=== PATIENT | female | born 1940 | race Caucasian/White ===

== ENCOUNTER → 2019-10-21 10:28 | Outpatient (BNVA) | payer MEDICARE, SELFPAY | PROVIDERS: Family Provider Family Medicine; PCP Family Medicine; Visit Provider Family Medicine | DX: I10 Essential (primary) hypertension (principal); E11.9 Type 2 diabetes mellitus without complications; Z79.4 Long term (current) use of insulin; L30.9 Dermatitis, unspecified; E78.2 Mixed hyperlipidemia | CPT/HCPCS: 80053; 80061; 82044; 83036; 85025 ==

== ENCOUNTER → 2020-04-20 09:52 | Outpatient (BNVA) | payer MEDICARE, SELFPAY | PROVIDERS: Family Provider Family Medicine; PCP Family Medicine; Visit Provider Family Medicine | DX: E11.9 Type 2 diabetes mellitus without complications (principal); I10 Essential (primary) hypertension; Z79.4 Long term (current) use of insulin | CPT/HCPCS: 80053; 80061; 83036 ==

== ENCOUNTER → 2020-08-19 09:40 | Outpatient (BNVA) | payer MEDICARE, SELFPAY | PROVIDERS: Family Provider Family Medicine; PCP Family Medicine; Visit Provider Family Medicine | DX: E11.9 Type 2 diabetes mellitus without complications (principal); Z79.4 Long term (current) use of insulin; J01.10 Acute frontal sinusitis, unspecified; I10 Essential (primary) hypertension; E78.2 Mixed hyperlipidemia | CPT/HCPCS: 80053; 83036 ==

== ENCOUNTER → 2020-11-11 09:56 | Outpatient (BNVA) | payer MEDICARE, SELFPAY | PROVIDERS: Family Provider Family Medicine; PCP Family Medicine; Visit Provider Family Medicine | DX: E11.9 Type 2 diabetes mellitus without complications (principal); Z79.4 Long term (current) use of insulin; I10 Essential (primary) hypertension; E78.2 Mixed hyperlipidemia | CPT/HCPCS: 80053; 80061; 83036; 85025 ==

== ENCOUNTER → 2022-06-08 11:28 | Outpatient (BNVA) | payer MEDICARE, SELFPAY | PROVIDERS: Family Provider Family Medicine; PCP Family Medicine; Referring Provider Dermatology; Visit Provider Podiatrist Foot & Ankle Surgery | DX: E11.621 Type 2 diabetes mellitus with foot ulcer (principal); L97.512 Non-pressure chronic ulcer of other part of right foot with fat layer exposed; Z79.4 Long term (current) use of insulin; Z79.84 Long term (current) use of oral hypoglycemic drugs | CPT/HCPCS: 11042; 73630; 99204 ==

== ENCOUNTER 2022-06-29 14:54 | Outpatient (CLI) | payer MEDICARE, SELFPAY | END 2022-06-29 14:55 | disposition home or self-care (01) | LOC: SPT 14:57 | PROVIDERS: Family Provider Family Medicine; PCP Family Medicine; Visit Provider Podiatrist Foot & Ankle Surgery | DX: Z46.89 Encounter for fitting and adjustment of other specified devices (principal); E11.621 Type 2 diabetes mellitus with foot ulcer; L97.512 Non-pressure chronic ulcer of other part of right foot with fat layer exposed; L97.521 Non-pressure chronic ulcer of other part of left foot limited to breakdown of skin; Z79.4 Long term (current) use of insulin; Z79.84 Long term (current) use of oral hypoglycemic drugs | CPT/HCPCS: 11042; 97760; L4361 ==

== ENCOUNTER → 2022-07-18 11:06 | Outpatient (BNVA) | payer MEDICARE, SELFPAY | PROVIDERS: Family Provider Family Medicine; PCP Family Medicine; Visit Provider Podiatrist Foot & Ankle Surgery | DX: E11.621 Type 2 diabetes mellitus with foot ulcer (principal); L97.512 Non-pressure chronic ulcer of other part of right foot with fat layer exposed; L97.522 Non-pressure chronic ulcer of other part of left foot with fat layer exposed; L97.401 Non-pressure chronic ulcer of unspecified heel and midfoot limited to breakdown of skin; I70.223 Atherosclerosis of native arteries of extremities with rest pain, bilateral legs; Z79.4 Long term (current) use of insulin | CPT/HCPCS: 99214 ==

== ENCOUNTER → 2022-08-17 11:21 | Outpatient (BNVA) | payer MEDICARE, SELFPAY | PROVIDERS: Family Provider Family Medicine; PCP Family Medicine; Visit Provider Podiatrist Foot & Ankle Surgery | DX: E11.621 Type 2 diabetes mellitus with foot ulcer (principal); L97.512 Non-pressure chronic ulcer of other part of right foot with fat layer exposed; E11.9 Type 2 diabetes mellitus without complications; Z79.4 Long term (current) use of insulin; I70.223 Atherosclerosis of native arteries of extremities with rest pain, bilateral legs; L97.522 Non-pressure chronic ulcer of other part of left foot with fat layer exposed; L97.401 Non-pressure chronic ulcer of unspecified heel and midfoot limited to breakdown of skin | CPT/HCPCS: 99214 ==

== ENCOUNTER → 2022-10-05 14:18 | Outpatient (BNVA) | payer MEDICARE, SELFPAY | PROVIDERS: Family Provider Family Medicine; PCP Family Medicine; Visit Provider Podiatrist Foot & Ankle Surgery | DX: L97.522 Non-pressure chronic ulcer of other part of left foot with fat layer exposed (principal) | CPT/HCPCS: 11042; 87070; 87075; 87205 ==

== ENCOUNTER → 2022-10-19 15:08 | Outpatient (BNVA) | payer MEDICARE, SELFPAY | PROVIDERS: Family Provider Family Medicine; PCP Family Medicine; Visit Provider Podiatrist Foot & Ankle Surgery | DX: E11.621 Type 2 diabetes mellitus with foot ulcer (principal); L97.512 Non-pressure chronic ulcer of other part of right foot with fat layer exposed; L97.522 Non-pressure chronic ulcer of other part of left foot with fat layer exposed; L97.421 Non-pressure chronic ulcer of left heel and midfoot limited to breakdown of skin; I70.223 Atherosclerosis of native arteries of extremities with rest pain, bilateral legs; Z79.4 Long term (current) use of insulin; Z79.84 Long term (current) use of oral hypoglycemic drugs | CPT/HCPCS: 99214 ==

== ENCOUNTER → 2022-11-02 14:57 | Outpatient (BNVA) | payer MEDICARE, SELFPAY | PROVIDERS: Family Provider Family Medicine; PCP Family Medicine; Visit Provider Podiatrist Foot & Ankle Surgery | DX: E11.621 Type 2 diabetes mellitus with foot ulcer (principal); L97.512 Non-pressure chronic ulcer of other part of right foot with fat layer exposed; L97.522 Non-pressure chronic ulcer of other part of left foot with fat layer exposed; L97.421 Non-pressure chronic ulcer of left heel and midfoot limited to breakdown of skin; Z79.84 Long term (current) use of oral hypoglycemic drugs; Z79.4 Long term (current) use of insulin; I70.223 Atherosclerosis of native arteries of extremities with rest pain, bilateral legs | CPT/HCPCS: 99214 ==

== ENCOUNTER → 2022-11-16 11:01 | Outpatient (BNVA) | payer MEDICARE, SELFPAY | PROVIDERS: Family Provider Family Medicine; PCP Family Medicine; Visit Provider Podiatrist Foot & Ankle Surgery | DX: E11.621 Type 2 diabetes mellitus with foot ulcer (principal); Z79.84 Long term (current) use of oral hypoglycemic drugs; L97.512 Non-pressure chronic ulcer of other part of right foot with fat layer exposed; Z79.4 Long term (current) use of insulin; I70.223 Atherosclerosis of native arteries of extremities with rest pain, bilateral legs; L97.522 Non-pressure chronic ulcer of other part of left foot with fat layer exposed; L97.421 Non-pressure chronic ulcer of left heel and midfoot limited to breakdown of skin | CPT/HCPCS: 99214 ==

== ENCOUNTER → 2022-11-30 13:24 | Outpatient (BNVA) | payer MEDICARE, SELFPAY | PROVIDERS: Family Provider Family Medicine; PCP Family Medicine; Visit Provider Podiatrist Foot & Ankle Surgery | DX: E11.621 Type 2 diabetes mellitus with foot ulcer (principal); Z79.84 Long term (current) use of oral hypoglycemic drugs; L97.512 Non-pressure chronic ulcer of other part of right foot with fat layer exposed; L97.522 Non-pressure chronic ulcer of other part of left foot with fat layer exposed; L97.421 Non-pressure chronic ulcer of left heel and midfoot limited to breakdown of skin; I70.223 Atherosclerosis of native arteries of extremities with rest pain, bilateral legs; Z79.4 Long term (current) use of insulin | CPT/HCPCS: 99214 ==

== ENCOUNTER → 2022-12-14 14:20 | Outpatient (BNVA) | payer MEDICARE, SELFPAY | PROVIDERS: Family Provider Family Medicine; PCP Family Medicine; Visit Provider Podiatrist Foot & Ankle Surgery | DX: E11.621 Type 2 diabetes mellitus with foot ulcer (principal); I70.223 Atherosclerosis of native arteries of extremities with rest pain, bilateral legs; L97.512 Non-pressure chronic ulcer of other part of right foot with fat layer exposed; L97.522 Non-pressure chronic ulcer of other part of left foot with fat layer exposed; Z79.4 Long term (current) use of insulin | CPT/HCPCS: 99213 ==

== ENCOUNTER → 2022-12-28 14:27 | Outpatient (BNVA) | payer MEDICARE, SELFPAY | PROVIDERS: Family Provider Family Medicine; PCP Family Medicine; Visit Provider Podiatrist Foot & Ankle Surgery | DX: E11.621 Type 2 diabetes mellitus with foot ulcer (principal); Z79.84 Long term (current) use of oral hypoglycemic drugs; L97.512 Non-pressure chronic ulcer of other part of right foot with fat layer exposed; L97.522 Non-pressure chronic ulcer of other part of left foot with fat layer exposed; I70.223 Atherosclerosis of native arteries of extremities with rest pain, bilateral legs; Z79.4 Long term (current) use of insulin | CPT/HCPCS: 99213 ==

== ENCOUNTER → 2023-01-11 13:34 | Outpatient (BNVA) | payer MEDICARE, SELFPAY | PROVIDERS: Family Provider Family Medicine; PCP Family Medicine; Visit Provider Podiatrist Foot & Ankle Surgery | DX: I70.223 Atherosclerosis of native arteries of extremities with rest pain, bilateral legs (principal); E11.621 Type 2 diabetes mellitus with foot ulcer; L97.522 Non-pressure chronic ulcer of other part of left foot with fat layer exposed; L97.512 Non-pressure chronic ulcer of other part of right foot with fat layer exposed; Z79.4 Long term (current) use of insulin; Z79.84 Long term (current) use of oral hypoglycemic drugs | CPT/HCPCS: 99214 ==

== ENCOUNTER → 2023-03-15 10:33 | Outpatient (BNVA) | payer MEDICARE, SELFPAY | PROVIDERS: Family Provider Family Medicine; PCP Family Medicine; Visit Provider Podiatrist Foot & Ankle Surgery | DX: E11.621 Type 2 diabetes mellitus with foot ulcer (principal); Z79.84 Long term (current) use of oral hypoglycemic drugs; I73.9 Peripheral vascular disease, unspecified; L97.512 Non-pressure chronic ulcer of other part of right foot with fat layer exposed; Z79.4 Long term (current) use of insulin | CPT/HCPCS: 99214 ==

== ENCOUNTER → 2023-04-05 14:33 | Outpatient (BNVA) | payer MEDICARE, SELFPAY | PROVIDERS: Family Provider Family Medicine; PCP Family Medicine; Visit Provider Podiatrist Foot & Ankle Surgery | DX: L97.512 Non-pressure chronic ulcer of other part of right foot with fat layer exposed (principal); Z79.4 Long term (current) use of insulin; I70.223 Atherosclerosis of native arteries of extremities with rest pain, bilateral legs; E11.621 Type 2 diabetes mellitus with foot ulcer; Z79.84 Long term (current) use of oral hypoglycemic drugs | CPT/HCPCS: 99214 ==

== ENCOUNTER → 2023-04-26 12:53 | Outpatient (BNVA) | payer MEDICARE, SELFPAY | PROVIDERS: Family Provider Family Medicine; PCP Family Medicine; Visit Provider Podiatrist Foot & Ankle Surgery | DX: E11.621 Type 2 diabetes mellitus with foot ulcer; L97.512 Non-pressure chronic ulcer of other part of right foot with fat layer exposed; Z79.4 Long term (current) use of insulin; I70.223 Atherosclerosis of native arteries of extremities with rest pain, bilateral legs; Z79.84 Long term (current) use of oral hypoglycemic drugs | CPT/HCPCS: 99214 ==

== ENCOUNTER → 2023-05-31 13:28 | Outpatient (BNVA) | payer MEDICARE, SELFPAY | PROVIDERS: Family Provider Family Medicine; PCP Family Medicine; Visit Provider Podiatrist Foot & Ankle Surgery | DX: Z79.4 Long term (current) use of insulin; I73.9 Peripheral vascular disease, unspecified; L97.522 Non-pressure chronic ulcer of other part of left foot with fat layer exposed; E11.621 Type 2 diabetes mellitus with foot ulcer; Z79.84 Long term (current) use of oral hypoglycemic drugs | CPT/HCPCS: 99213 ==

== ENCOUNTER → 2023-06-28 13:01 | Outpatient (BNVA) | payer MEDICARE, SELFPAY | PROVIDERS: Family Provider Family Medicine; PCP Family Medicine; Visit Provider Podiatrist Foot & Ankle Surgery | DX: Z79.4 Long term (current) use of insulin; I73.9 Peripheral vascular disease, unspecified; L97.512 Non-pressure chronic ulcer of other part of right foot with fat layer exposed; E11.621 Type 2 diabetes mellitus with foot ulcer; Z79.84 Long term (current) use of oral hypoglycemic drugs | CPT/HCPCS: 99213 ==

== ENCOUNTER → 2023-08-02 11:23 | Outpatient (BNVA) | payer MEDICARE, SELFPAY | PROVIDERS: Family Provider Family Medicine; PCP Family Medicine; Visit Provider Podiatrist Foot & Ankle Surgery | DX: Z79.4 Long term (current) use of insulin; I73.9 Peripheral vascular disease, unspecified; L97.512 Non-pressure chronic ulcer of other part of right foot with fat layer exposed; E11.621 Type 2 diabetes mellitus with foot ulcer; Z79.84 Long term (current) use of oral hypoglycemic drugs | CPT/HCPCS: 99213 ==

== ENCOUNTER → 2023-08-16 10:16 | Outpatient (BNVA) | payer MEDICARE, SELFPAY | PROVIDERS: Family Provider Family Medicine; Visit Provider Podiatrist Foot & Ankle Surgery | DX: Z79.4 Long term (current) use of insulin; I73.9 Peripheral vascular disease, unspecified; L97.512 Non-pressure chronic ulcer of other part of right foot with fat layer exposed; E11.621 Type 2 diabetes mellitus with foot ulcer; Z79.84 Long term (current) use of oral hypoglycemic drugs | CPT/HCPCS: 99213 ==

== ENCOUNTER → 2023-09-13 13:09 | Outpatient (BNVA) | payer MEDICARE, SELFPAY | PROVIDERS: Family Provider Family Medicine; Visit Provider Podiatrist Foot & Ankle Surgery | DX: Z79.4 Long term (current) use of insulin; I73.9 Peripheral vascular disease, unspecified; L97.512 Non-pressure chronic ulcer of other part of right foot with fat layer exposed; E11.621 Type 2 diabetes mellitus with foot ulcer; Z79.84 Long term (current) use of oral hypoglycemic drugs | CPT/HCPCS: 11042 ==

== ENCOUNTER → 2023-10-04 14:21 | Outpatient (BNVA) | payer MEDICARE, SELFPAY | PROVIDERS: Family Provider Family Medicine; Visit Provider Podiatrist Foot & Ankle Surgery | DX: E11.621 Type 2 diabetes mellitus with foot ulcer (principal); Z79.4 Long term (current) use of insulin; I73.9 Peripheral vascular disease, unspecified; L97.512 Non-pressure chronic ulcer of other part of right foot with fat layer exposed | CPT/HCPCS: 11042 ==

== ENCOUNTER → 2023-11-06 09:57 | Outpatient (BNVA) | payer MEDICARE, SELFPAY | PROVIDERS: Family Provider Family Medicine; Visit Provider Podiatrist Foot & Ankle Surgery | DX: Z79.4 Long term (current) use of insulin; I73.9 Peripheral vascular disease, unspecified; L97.512 Non-pressure chronic ulcer of other part of right foot with fat layer exposed; E11.621 Type 2 diabetes mellitus with foot ulcer; Z79.84 Long term (current) use of oral hypoglycemic drugs | CPT/HCPCS: 99213 ==

== ENCOUNTER → 2023-11-24 13:25 | Outpatient (BNVA) | payer MEDICARE, SELFPAY | PROVIDERS: Family Provider Family Medicine; Visit Provider Podiatrist Foot & Ankle Surgery | DX: Z79.4 Long term (current) use of insulin; I73.9 Peripheral vascular disease, unspecified; L97.512 Non-pressure chronic ulcer of other part of right foot with fat layer exposed; E11.621 Type 2 diabetes mellitus with foot ulcer | CPT/HCPCS: 99213 ==

== ENCOUNTER → 2023-12-11 12:42 | Outpatient (BNVA) | payer MEDICARE, SELFPAY | PROVIDERS: Family Provider Family Medicine; Visit Provider Podiatrist Foot & Ankle Surgery | DX: Z79.4 Long term (current) use of insulin; I73.9 Peripheral vascular disease, unspecified; E11.9 Type 2 diabetes mellitus without complications; Z79.84 Long term (current) use of oral hypoglycemic drugs | CPT/HCPCS: 99213 ==

== ENCOUNTER → 2024-01-08 12:29 | Outpatient (BNVA) | payer MEDICARE, SELFPAY | PROVIDERS: Family Provider Family Medicine; Visit Provider Podiatrist Foot & Ankle Surgery | DX: Z79.4 Long term (current) use of insulin; I73.9 Peripheral vascular disease, unspecified; L97.512 Non-pressure chronic ulcer of other part of right foot with fat layer exposed; E11.621 Type 2 diabetes mellitus with foot ulcer; Z79.84 Long term (current) use of oral hypoglycemic drugs | CPT/HCPCS: 99213 ==

== ENCOUNTER → 2024-03-25 09:38 | Outpatient (BNVA) | payer MEDICARE, SELFPAY | PROVIDERS: Family Provider Family Medicine; Visit Provider Podiatrist Foot & Ankle Surgery | DX: Z79.4 Long term (current) use of insulin; I73.9 Peripheral vascular disease, unspecified; L97.512 Non-pressure chronic ulcer of other part of right foot with fat layer exposed; E11.621 Type 2 diabetes mellitus with foot ulcer | CPT/HCPCS: 11042 ==

== ENCOUNTER → 2024-04-17 10:45 | Outpatient (BNVA) | payer MEDICARE, SELFPAY | PROVIDERS: Family Provider Family Medicine; Visit Provider Podiatrist Foot & Ankle Surgery | DX: Z79.4 Long term (current) use of insulin; I73.9 Peripheral vascular disease, unspecified; L97.512 Non-pressure chronic ulcer of other part of right foot with fat layer exposed; E11.621 Type 2 diabetes mellitus with foot ulcer; Z79.84 Long term (current) use of oral hypoglycemic drugs | CPT/HCPCS: 11042 ==

== ENCOUNTER → 2024-05-08 11:12 | Outpatient (BNVA) | payer MEDICARE, SELFPAY | PROVIDERS: Family Provider Family Medicine; Visit Provider Podiatrist Foot & Ankle Surgery | DX: Z79.4 Long term (current) use of insulin; I73.9 Peripheral vascular disease, unspecified; L97.512 Non-pressure chronic ulcer of other part of right foot with fat layer exposed; E11.621 Type 2 diabetes mellitus with foot ulcer | CPT/HCPCS: 99213 ==

== ENCOUNTER → 2024-05-29 11:10 | Outpatient (BNVA) | payer MEDICARE, SELFPAY | PROVIDERS: Family Provider Family Medicine; Visit Provider Podiatrist Foot & Ankle Surgery | DX: Z79.4 Long term (current) use of insulin; I73.9 Peripheral vascular disease, unspecified; L97.512 Non-pressure chronic ulcer of other part of right foot with fat layer exposed; E11.621 Type 2 diabetes mellitus with foot ulcer; Z79.84 Long term (current) use of oral hypoglycemic drugs | CPT/HCPCS: 29445 ==

== ENCOUNTER → 2024-06-06 10:40 | Outpatient (BNVA) | payer MEDICARE, SELFPAY | PROVIDERS: Family Provider Family Medicine; Visit Provider Podiatrist Foot & Ankle Surgery | DX: Z79.4 Long term (current) use of insulin; I73.9 Peripheral vascular disease, unspecified; L97.512 Non-pressure chronic ulcer of other part of right foot with fat layer exposed; E11.621 Type 2 diabetes mellitus with foot ulcer; Z79.84 Long term (current) use of oral hypoglycemic drugs | CPT/HCPCS: 99213 ==

== ENCOUNTER → 2024-06-19 10:59 | Outpatient (BNVA) | payer MEDICARE, SELFPAY | PROVIDERS: Family Provider Family Medicine; Visit Provider Podiatrist Foot & Ankle Surgery | DX: Z79.4 Long term (current) use of insulin; I73.9 Peripheral vascular disease, unspecified; L97.512 Non-pressure chronic ulcer of other part of right foot with fat layer exposed; E11.621 Type 2 diabetes mellitus with foot ulcer; Z79.84 Long term (current) use of oral hypoglycemic drugs | CPT/HCPCS: 99213 ==

== ENCOUNTER → 2024-07-03 10:46 | Outpatient (BNVA) | payer MEDICARE, SELFPAY | PROVIDERS: Family Provider Family Medicine; Visit Provider Podiatrist Foot & Ankle Surgery | DX: Z79.4 Long term (current) use of insulin; I73.9 Peripheral vascular disease, unspecified; L97.512 Non-pressure chronic ulcer of other part of right foot with fat layer exposed; L97.522 Non-pressure chronic ulcer of other part of left foot with fat layer exposed; E11.621 Type 2 diabetes mellitus with foot ulcer; Z79.84 Long term (current) use of oral hypoglycemic drugs | CPT/HCPCS: 99213 ==

== ENCOUNTER → 2024-07-30 12:29 | Outpatient (BNVA) | payer MEDICARE, SELFPAY | PROVIDERS: Family Provider Family Medicine; Visit Provider Podiatrist Foot & Ankle Surgery | DX: Z79.4 Long term (current) use of insulin; I73.9 Peripheral vascular disease, unspecified; L97.512 Non-pressure chronic ulcer of other part of right foot with fat layer exposed; L60.3 Nail dystrophy; E11.621 Type 2 diabetes mellitus with foot ulcer; Z79.84 Long term (current) use of oral hypoglycemic drugs | CPT/HCPCS: 11042; 11721 ==

== ENCOUNTER → 2024-09-10 13:15 | Outpatient (BNVA) | payer MEDICARE, SELFPAY | PROVIDERS: Family Provider Family Medicine; Visit Provider Podiatrist Foot & Ankle Surgery | DX: Z79.4 Long term (current) use of insulin; I73.9 Peripheral vascular disease, unspecified; L97.512 Non-pressure chronic ulcer of other part of right foot with fat layer exposed; E11.621 Type 2 diabetes mellitus with foot ulcer; E11.69 Type 2 diabetes mellitus with other specified complication; Z79.84 Long term (current) use of oral hypoglycemic drugs | CPT/HCPCS: 11042 ==

== ENCOUNTER → 2024-10-23 10:05 | Outpatient (BNVA) | payer MEDICARE, SELFPAY | PROVIDERS: Family Provider Family Medicine; Visit Provider Podiatrist Foot & Ankle Surgery | DX: E11.621 Type 2 diabetes mellitus with foot ulcer (principal); L97.513 Non-pressure chronic ulcer of other part of right foot with necrosis of muscle; Z79.4 Long term (current) use of insulin; I73.9 Peripheral vascular disease, unspecified; M20.21 Hallux rigidus, right foot; M20.22 Hallux rigidus, left foot; M21.41 Flat foot [pes planus] (acquired), right foot; M21.42 Flat foot [pes planus] (acquired), left foot | CPT/HCPCS: 99213 ==

== ENCOUNTER → 2024-11-11 09:47 | Outpatient (BNVA) | payer MEDICARE, SELFPAY | PROVIDERS: Family Provider Family Medicine; Visit Provider Podiatrist Foot & Ankle Surgery | DX: E11.621 Type 2 diabetes mellitus with foot ulcer (principal); L97.513 Non-pressure chronic ulcer of other part of right foot with necrosis of muscle; Z79.4 Long term (current) use of insulin; I73.9 Peripheral vascular disease, unspecified; M20.21 Hallux rigidus, right foot; M20.22 Hallux rigidus, left foot; M21.41 Flat foot [pes planus] (acquired), right foot; M21.42 Flat foot [pes planus] (acquired), left foot; Z79.84 Long term (current) use of oral hypoglycemic drugs | CPT/HCPCS: 99213 ==

== ENCOUNTER → 2024-12-18 12:26 | Outpatient (BNVA) | payer MEDICARE, SELFPAY | PROVIDERS: Family Provider Family Medicine; Visit Provider Nurse Practitioner Family | DX: L30.8 Other specified dermatitis (principal); L57.8 Other skin changes due to chronic exposure to nonionizing radiation; D22.39 Melanocytic nevi of other parts of face; R23.3 Spontaneous ecchymoses; L82.1 Other seborrheic keratosis; I87.2 Venous insufficiency (chronic) (peripheral); L81.4 Other melanin hyperpigmentation; L57.0 Actinic keratosis | CPT/HCPCS: 17000; 99203 ==

== ENCOUNTER → 2024-12-25 10:13 | Outpatient (BNVA) | payer MEDICARE, SELFPAY | PROVIDERS: PCP Nurse Practitioner Family; Visit Provider Podiatrist Foot & Ankle Surgery | DX: E11.621 Type 2 diabetes mellitus with foot ulcer (principal); L97.513 Non-pressure chronic ulcer of other part of right foot with necrosis of muscle; Z79.4 Long term (current) use of insulin; I73.9 Peripheral vascular disease, unspecified; M20.21 Hallux rigidus, right foot; M20.22 Hallux rigidus, left foot; M21.41 Flat foot [pes planus] (acquired), right foot; M21.42 Flat foot [pes planus] (acquired), left foot; Z79.84 Long term (current) use of oral hypoglycemic drugs | CPT/HCPCS: 11042 ==

== ENCOUNTER → 2025-01-15 13:23 | Outpatient (BNVA) | payer MEDICARE, SELFPAY | PROVIDERS: PCP Nurse Practitioner Family; Visit Provider Podiatrist Foot & Ankle Surgery | DX: I73.9 Peripheral vascular disease, unspecified (principal); Z79.4 Long term (current) use of insulin; M20.21 Hallux rigidus, right foot; M20.22 Hallux rigidus, left foot; M21.41 Flat foot [pes planus] (acquired), right foot; M21.42 Flat foot [pes planus] (acquired), left foot; L97.513 Non-pressure chronic ulcer of other part of right foot with necrosis of muscle; E11.69 Type 2 diabetes mellitus with other specified complication; E11.621 Type 2 diabetes mellitus with foot ulcer; Z79.84 Long term (current) use of oral hypoglycemic drugs | CPT/HCPCS: 99213 ==

== ENCOUNTER → 2025-01-16 09:34 | Outpatient (BNVA) | payer MEDICARE, SELFPAY | PROVIDERS: PCP Nurse Practitioner Family; Visit Provider Nurse Practitioner Family | DX: L30.8 Other specified dermatitis (principal); L57.8 Other skin changes due to chronic exposure to nonionizing radiation; D22.39 Melanocytic nevi of other parts of face; L81.4 Other melanin hyperpigmentation; L60.9 Nail disorder, unspecified | CPT/HCPCS: 99214 ==

== ENCOUNTER → 2025-01-29 11:10 | Outpatient (BNVA) | payer MEDICARE, SELFPAY | PROVIDERS: PCP Nurse Practitioner Family; Visit Provider Podiatrist Foot & Ankle Surgery | DX: I73.9 Peripheral vascular disease, unspecified (principal); Z79.4 Long term (current) use of insulin; M20.21 Hallux rigidus, right foot; M20.22 Hallux rigidus, left foot; M21.41 Flat foot [pes planus] (acquired), right foot; M21.42 Flat foot [pes planus] (acquired), left foot; L97.513 Non-pressure chronic ulcer of other part of right foot with necrosis of muscle; L03.115 Cellulitis of right lower limb; E11.621 Type 2 diabetes mellitus with foot ulcer; Z79.84 Long term (current) use of oral hypoglycemic drugs | CPT/HCPCS: 99214 ==

== ENCOUNTER → 2025-02-24 12:45 | Outpatient (BNVA) | payer MEDICARE, SELFPAY | PROVIDERS: PCP Family Medicine; Visit Provider Podiatrist Foot & Ankle Surgery | DX: E11.621 Type 2 diabetes mellitus with foot ulcer (principal); R09.89 Other specified symptoms and signs involving the circulatory and respiratory systems; L97.513 Non-pressure chronic ulcer of other part of right foot with necrosis of muscle; E11.51 Type 2 diabetes mellitus with diabetic peripheral angiopathy without gangrene; Z79.4 Long term (current) use of insulin; I73.9 Peripheral vascular disease, unspecified; M20.21 Hallux rigidus, right foot; M20.22 Hallux rigidus, left foot; M21.41 Flat foot [pes planus] (acquired), right foot; M21.42 Flat foot [pes planus] (acquired), left foot | CPT/HCPCS: 11042; 99213 ==

== ENCOUNTER → 2025-03-11 09:24 | Outpatient (BNVA) | payer MEDICARE, SELFPAY | PROVIDERS: PCP Family Medicine; Visit Provider Podiatrist Foot & Ankle Surgery | DX: E11.51 Type 2 diabetes mellitus with diabetic peripheral angiopathy without gangrene (principal); Z79.4 Long term (current) use of insulin; E11.621 Type 2 diabetes mellitus with foot ulcer; L97.513 Non-pressure chronic ulcer of other part of right foot with necrosis of muscle; I73.9 Peripheral vascular disease, unspecified; M20.21 Hallux rigidus, right foot; M20.22 Hallux rigidus, left foot; M21.41 Flat foot [pes planus] (acquired), right foot; M21.42 Flat foot [pes planus] (acquired), left foot; R09.89 Other specified symptoms and signs involving the circulatory and respiratory systems | CPT/HCPCS: 99213 ==

== ENCOUNTER → 2025-03-18 09:03 | Outpatient (BNVA) | payer MEDICARE, SELFPAY | PROVIDERS: PCP Family Medicine; Visit Provider Family Medicine | DX: E11.51 Type 2 diabetes mellitus with diabetic peripheral angiopathy without gangrene (principal); Z79.4 Long term (current) use of insulin | CPT/HCPCS: 80053; 80061; 82043; 83036; 85025 ==

== ENCOUNTER 2025-03-26 10:02 | Outpatient (CLI) | payer MEDICARE, SELFPAY ==
--- NOTE | 2025-03-26 10:30 | USR_ITS ---
PROCEDURE INFORMATION: Exam: US Bilateral Noninvasive Physiologic Study of the Lower Extremity Arteries, Limited Exam date and time: 03/26/2025 9:55 AM Age: 85 years old Clinical indication: Pain; Leg, lower; Bilateral; Additional info: R09.89 - other specified symptoms and signs involving the. . . TECHNIQUE: Imaging protocol: Bilateral Limited bilateral noninvasive physiologic studies of lower extremity arteries. Waveforms were obtained and evaluated. Images were documented and archived. Exam is limited. COMPARISON: CR XR foot RT min 3V* [id number] 06/08/2022 11:30 AM FINDINGS: Right Ankle-Brachial Index: 0.46 Left Ankle-Brachial Index: 0.52 US/CV ankle brachial index 36779 IMPRESSION: There is evidence of significant arterial disease in both legs
== END 2025-03-26 10:03 | disposition home or self-care (01) ==
LOC: RAD 10:05
PROVIDERS: PCP Family Medicine; Visit Provider Podiatrist Foot & Ankle Surgery
DX: R09.89 Other specified symptoms and signs involving the circulatory and respiratory systems (principal)
CPT/HCPCS: 93922

== ENCOUNTER → 2025-04-01 10:12 | Outpatient (BNVA) | payer MEDICARE, SELFPAY | PROVIDERS: PCP Family Medicine; Visit Provider Podiatrist Foot & Ankle Surgery | DX: E11.621 Type 2 diabetes mellitus with foot ulcer (principal); L97.513 Non-pressure chronic ulcer of other part of right foot with necrosis of muscle; E11.51 Type 2 diabetes mellitus with diabetic peripheral angiopathy without gangrene; Z79.4 Long term (current) use of insulin; I73.9 Peripheral vascular disease, unspecified; M20.21 Hallux rigidus, right foot; M20.22 Hallux rigidus, left foot; M21.41 Flat foot [pes planus] (acquired), right foot; M21.42 Flat foot [pes planus] (acquired), left foot; R09.89 Other specified symptoms and signs involving the circulatory and respiratory systems | CPT/HCPCS: 11042; 99213 ==

== ENCOUNTER → 2025-04-15 09:24 | Outpatient (BNVA) | payer MEDICARE, SELFPAY | PROVIDERS: PCP Family Medicine; Visit Provider Internal Medicine Cardiovascular Disease | DX: R07.9 Chest pain, unspecified (principal) | CPT/HCPCS: 93005 ==

== ENCOUNTER → 2025-04-29 10:03 | Outpatient (BNVA) | payer MEDICARE, SELFPAY | PROVIDERS: PCP Family Medicine; Visit Provider Podiatrist Foot & Ankle Surgery | DX: E11.621 Type 2 diabetes mellitus with foot ulcer (principal); L97.513 Non-pressure chronic ulcer of other part of right foot with necrosis of muscle; E11.51 Type 2 diabetes mellitus with diabetic peripheral angiopathy without gangrene; Z79.4 Long term (current) use of insulin; I73.9 Peripheral vascular disease, unspecified; M20.21 Hallux rigidus, right foot; M20.22 Hallux rigidus, left foot; M21.41 Flat foot [pes planus] (acquired), right foot; M21.42 Flat foot [pes planus] (acquired), left foot; R09.89 Other specified symptoms and signs involving the circulatory and respiratory systems | CPT/HCPCS: 99213 ==

== ENCOUNTER 2025-05-08 11:34 | Outpatient (CLI) | payer MEDICARE, SELFPAY ==
--- NOTE | 2025-05-08 12:00 | CTR_ITS ---
PROCEDURE INFORMATION: Exam: CTA Abdominal Aorta and Bilateral Lower Extremities (Run-off) With Contrast Exam date and time: 05/08/2025 12:17 PM Age: 85 years old Clinical indication: Condition or disease; Peripheral vascular disease; Prior surgery; Surgery date: 6+ months; Surgery type: Partial hyst, RT foot 2nd toe removed, heart stents x 4; Pain in lower extremities; Additional info: Pvd TECHNIQUE: Imaging protocol: Computed tomographic angiography of the of the abdominal aorta, pelvis and bilateral lower extremities with contrast. 3D rendering (Not supervised by radiologist): MIP and/or 3D reconstructed images were created by the technologist. Radiation optimization: All CT scans at this facility use at least one of these dose optimization techniques: automated exposure control; mA and/or kV adjustment per patient size (includes targeted exams where dose is matched to clinical indication); or iterative reconstruction. Contrast material: OMNIPAQUE 350; Contrast volume: 125 ml; Contrast route: INTRAVENOUS (IV); COMPARISON: US Lower Arterial 03/26/2025 09:55 AM RADIATION DOSE METRICS: Total DLP (mGy-cm): 1635.32 FINDINGS: Aorta: Atherosclerotic vascular disease of the abdominal aorta with calcifications of the origin of the celiac axis and SMA. Focal stenosis at the origin of the [place]. No aneurysmal dilatation of the abdominal aorta. Celiac trunk and mesenteric arteries: See Aorta finding. Renal arteries: No occlusion or significant stenosis. Right iliac arteries: Atherosclerotic vascular disease. Right femoral/popliteal arteries: Atherosclerotic vascular disease. Right infrapopliteal arteries: The right peroneal artery appears well opacified but small in caliber. There is faint visualization of the mid to distal right posterior tibial artery which then becomes completely occluded at the mid tibial level. Segmental areas of occlusive thrombus within the right anterior tibial artery. Multiple levels of reconstitution of the right anterior tibial artery. Left iliac arteries: Atherosclerotic vascular disease of the iliac and femoral vessels. Left femoral/popliteal arteries: Atherosclerotic vascular disease. Left infrapopliteal arteries: The proximal left peroneal artery demonstrates occlusion with distal reconstitution. Segmental areas of occlusive thrombus within the left anterior tibial artery. Multiple levels with reconstitution of the left anterior tibial artery.There is occlusion of the left posterior tibial artery at the level of the mid tibia. Liver: Area of differential perfusion within the peripheral liver. Gallbladder and biliary ducts: Multiple gallstones and layering gallbladder sludge. No gallbladder wall thickening. Pancreas: Pancreatic atrophy. Spleen: Normal. No splenomegaly. Adrenal glands: Left adrenal nodule measuring 1.6 x 1.2 cm (series 6, image 106). Kidneys and ureters: Probable focal scarring involving the anterior inferior left kidney. Stomach and bowel: Diverticular disease without acute diverticulosis. Small hiatal hernia versus distal thickening of the esophagus. Appendix: No evidence of appendicitis. Urinary bladder: Unremarkable. No mass. Reproductive: Scattered calcifications associated with the uterus. Intraperitoneal space: Unremarkable. No free air. No significant fluid collection. Lymph nodes: No lymphadenopathy. Bones/joints: Bilateral hip prosthesis resulting in beam hardening artifact. Marked degenerative changes of the spine . Multilevel disc space narrowing. Multilevel facet arthropathy. Soft tissues: Unremarkable. CT/CT angio abd aorta runof [id number] IMPRESSION: 1. Focal stenosis of the origin of the [place]. 2. Atherosclerotic vascular disease with occlusive thrombus involving right and left infrapopliteal arteries as above. 3. Cholelithiasis. No gallbladder wall thickening or pericholecystic fluid. 4. Small hiatal hernia versus distal thickening of the esophagus. 5. Left adrenal nodule, nonspecific. In a patient with no cancer history, consider 12 month follow-up adrenal CT. (Reference: Nubia) 6. Other findings as above. REFERENCES: Nubia GILMAN, et al. Management of Incidental Adrenal Masses: A White Paper of the ACR Incidental Findings Committee. J Am Jayy Radiol. 2017;14(8):2512-6001.
[2025-05-08] MEDS: iohexol 350 mg/mL 500 mL Btl (per mL) IV (12:32)
== END 2025-05-08 11:35 | disposition home or self-care (01) ==
PROVIDERS: PCP Family Medicine; Visit Provider Internal Medicine Cardiovascular Disease
DX: I73.9 Peripheral vascular disease, unspecified (principal)
CPT/HCPCS: 75635

== ENCOUNTER → 2025-05-20 14:22 | Outpatient (BNVA) | payer MEDICARE, SELFPAY | PROVIDERS: PCP Family Medicine; Visit Provider Podiatrist Foot & Ankle Surgery | DX: E11.51 Type 2 diabetes mellitus with diabetic peripheral angiopathy without gangrene (principal); Z79.4 Long term (current) use of insulin; I73.9 Peripheral vascular disease, unspecified; M20.21 Hallux rigidus, right foot; M20.22 Hallux rigidus, left foot; M21.41 Flat foot [pes planus] (acquired), right foot; M21.42 Flat foot [pes planus] (acquired), left foot; L97.513 Non-pressure chronic ulcer of other part of right foot with necrosis of muscle; R09.89 Other specified symptoms and signs involving the circulatory and respiratory systems; L03.115 Cellulitis of right lower limb; E11.621 Type 2 diabetes mellitus with foot ulcer | CPT/HCPCS: 99214 ==

== ENCOUNTER → 2025-05-21 13:37 | Outpatient (BNVA) | payer MEDICARE, SELFPAY | PROVIDERS: PCP Family Medicine; Visit Provider Internal Medicine Cardiovascular Disease | DX: I25.10 Atherosclerotic heart disease of native coronary artery without angina pectoris (principal); I73.9 Peripheral vascular disease, unspecified; I10 Essential (primary) hypertension; Z95.5 Presence of coronary angioplasty implant and graft; Z95.1 Presence of aortocoronary bypass graft; Z87.891 Personal history of nicotine dependence; R58 Hemorrhage, not elsewhere classified | CPT/HCPCS: 99214 ==

== ENCOUNTER → 2025-05-26 09:48 | Outpatient (BNVA) | payer MEDICARE, SELFPAY | PROVIDERS: PCP Family Medicine; Referring Provider Internal Medicine Cardiovascular Disease; Visit Provider Internal Medicine Cardiovascular Disease | DX: R58 Hemorrhage, not elsewhere classified (principal); I73.9 Peripheral vascular disease, unspecified; I10 Essential (primary) hypertension | CPT/HCPCS: 80048; 85025; 85610 ==

== ENCOUNTER → 2025-06-02 11:10 | Outpatient (BNVA) | payer MEDICARE, SELFPAY | PROVIDERS: PCP Family Medicine; Visit Provider Podiatrist Foot & Ankle Surgery | DX: E11.51 Type 2 diabetes mellitus with diabetic peripheral angiopathy without gangrene (principal); Z79.4 Long term (current) use of insulin; I73.9 Peripheral vascular disease, unspecified; L97.513 Non-pressure chronic ulcer of other part of right foot with necrosis of muscle; R09.89 Other specified symptoms and signs involving the circulatory and respiratory systems; L03.115 Cellulitis of right lower limb; Z89.421 Acquired absence of other right toe(s); E11.621 Type 2 diabetes mellitus with foot ulcer; L97.818 Non-pressure chronic ulcer of other part of right lower leg with other specified severity | CPT/HCPCS: 99213 ==

== ENCOUNTER → 2025-06-05 09:16 | Outpatient (BNVA) | payer MEDICARE, SELFPAY | PROVIDERS: PCP Family Medicine; Visit Provider Internal Medicine Cardiovascular Disease | DX: R58 Hemorrhage, not elsewhere classified (principal); I70.223 Atherosclerosis of native arteries of extremities with rest pain, bilateral legs; I10 Essential (primary) hypertension | CPT/HCPCS: 80048; 85025; 85610 ==

== ENCOUNTER → 2025-06-10 11:51 | Outpatient (BNVA) | payer MEDICARE, SELFPAY | PROVIDERS: PCP Family Medicine; Visit Provider Family Medicine | DX: E11.51 Type 2 diabetes mellitus with diabetic peripheral angiopathy without gangrene (principal); Z79.4 Long term (current) use of insulin | CPT/HCPCS: 83036 ==

== ENCOUNTER 2025-06-12 05:55 | Outpatient (CLI) | payer MEDICARE, SELFPAY ==
[2025-06-12] VITALS (43 sets, daily range): BP systolic 115–190; BP diastolic 56–116; PULSE 60–88; RESP 14–27; TEMP 36.6; O2SAT 93–96; BMI 33.3
--- NOTE | 2025-06-12 06:00 | XACV_ITS ---
Ht: 163 cm Wt: 88 kg BSA: 2.03 m2 Any Known Allergies: Codeine Gender: Female : 1940 Exam Type: Invasive Peripheral Vascular Procedure(s): Procedure Description: Peripheral Cath Diagnostic Procedure Exam Priority: Routine KHAMU2, Gore; Lower Extremity Diagnostic Findings Reason for peripheral angiogram: Critical limb ischemia of right lower limbEquipment used: UF catheter, Glidewire, seeker, shockwave 6.0 x 80 mm, Protonix 6.0 x 40 mmAbdominal aortogram was performed through the left common femoral contralateral approach after placing 6 [place] sheath. UF catheter was advanced and placed at the level of T12. Abdominal aortogram was obtainedAbdominal aortography: No significant aneurysm was noted Right renal artery: Patent Left renal artery patentWe then pulled the UF catheter in the lower part of abdominal aorta and advanced up with the help of Glidewire into right common iliac artery. Peripheral angiogram of the right lower extremity was performed through the UF catheter in the right common iliac.Right common iliac: Patent Right internal iliac ostial moderate disease Right external iliac: Patent Right common femoral subtotally occluded highly calcified eccentric almost 95% stenotic lesion Right profundofemoral patent Right SFA patent until it is an adductor canal where it appeared to have high-grade 80% stenosis Right proximal to mid popliteal luminal irregularity without significant stenosis Right distal popliteal subtotally occluded with highly calcified lesion Right tibioperoneal trunk appeared to be patent without significant stenosis Right anterior tibial chronically occluded in its proximal segment Right posterior tibial chronically occluded Right peroneal chronically occludedRight anterior tibial fills through collaterals from the left tibioperoneal trunk in the mid to distal segment with faint blood supply to the footUsing short 6 [place] sheath through left common femoral artery left peripheral angiogram was obtainedLeft common iliac patent Left internal iliac moderate ostial calcified lesion/stenosis Left external iliac patent Left common iliac has mild to moderate disease with calcified stenosis Left profundofemoral is patent Left SFA is patent iliac proximal to mid segment however while entering into adductor canal it has high-grade 80% stenosis The left popliteal has high-grade mid 80% calcified stenosis Tibioperoneal trunk on the left is patent Posterior tibial and peroneal left side arteries are chronically occluded Left anterior tibial is chronically occluded in the proximal to mid segment however it fills through collaterals from the tibioperoneal trunk and mid to distal segment which can be traceable all the way to the left foot feeding some part of the arch. Lower Extremity Interventional Findings Percutaneous intervention of the right common femoral and right distal SFA using lithotripsy and drug-coated balloon balloon Left common femoral short 6 [place] sheath was replaced with long 6 [place] sheath. Using seeker and run-through wire we were able to cross through right common femoral lesion into the SFA and later part of the wire through the tibioperoneal trunk into the proximal portion of occluded right anterior tibial artery.6.0 x 80 mm lithotripsy catheter was used to deliver multiple pulses in the right common femoral artery which improved 99% lesion to 60 to 70%. It was then postdilated with drug-coated balloon using 6.0 x40 millimeter at high inflation for 3 minutes. Reasonable good angiographic result was obtained 99% high-grade calcified lesion was reduced to 60 to 70%, because of the fact common femoral was not stentable therefore we excepted the result. Good flow was confirmed without any complication or dissection. Right distal SFA and popliteal artery lithotripsy followed by drug-coated balloon angioplasty. Right distal SFA and popliteal artery was from mildly treated with multiple pauses delivered through intravascular lithotripsy catheter, both lesions were then postdilated with drug-coated balloon at high atmospheres for 3 minutes. Excellent angiographic result with good flow was noted.Single-vessel runoff was noted below the right knee with good collaterals filling the right anterior tibial artery. Conclusions Reason for peripheral angiogram: Critical limb ischemia of right lower limbEquipment used: UF catheter, Glidewire, seeker, shockwave 6.0 x 80 mm, Protonix 6.0 x 40 mmAbdominal aortogram was performed through the left common femoral contralateral approach after placing 6 [place] sheath. UF catheter was advanced and placed at the level of T12. Abdominal aortogram was obtainedAbdominal aortography: No significant aneurysm was noted Right renal artery: Patent Left renal artery patentWe then pulled the UF catheter in the lower part of abdominal aorta and advanced up with the help of Glidewire into right common iliac artery. Peripheral angiogram of the right lower extremity was performed through the UF catheter in the right common iliac.Right common iliac: Patent Right internal iliac ostial moderate disease Right external iliac: Patent Right common femoral subtotally occluded highly calcified eccentric almost 95% stenotic lesion Right profundofemoral patent Right SFA patent until it is an adductor canal where it appeared to have high-grade 80% stenosis Right proximal to mid popliteal luminal irregularity without significant stenosis Right distal popliteal subtotally occluded with highly calcified lesion Right tibioperoneal trunk appeared to be patent without significant stenosis Right anterior tibial chronically occluded in its proximal segment Right posterior tibial chronically occluded Right peroneal chronically occludedRight anterior tibial fills through collaterals from the left tibioperoneal trunk in the mid to distal segment with faint blood supply to the footUsing short 6 [place] sheath through left common femoral artery left peripheral angiogram was obtainedLeft common iliac patent Left internal iliac moderate ostial calcified lesion/stenosis Left external iliac patent Left common iliac has mild to moderate disease with calcified stenosis Left profundofemoral is patent Left SFA is patent iliac proximal to mid segment however while entering into adductor canal it has high-grade 80% stenosis The left popliteal has high-grade mid 80% calcified stenosis Tibioperoneal trunk on the left is patent Posterior tibial and peroneal left side arteries are chronically occluded Left anterior tibial is chronically occluded in the proximal to mid segment however it fills through collaterals from the tibioperoneal trunk and mid to distal segment which can be traceable all the way to the left foot feeding some part of the arch. Recommendations 1-Return to inpatient for close monitoring and routine cath care 2-Risk factor modification for secondary prevention 3-Statin and aspirin 81 mg life-long, if tolerated 4-Patient was pre-loaded with 300 mg of Plavix, continue Plavix 75mg p.o. daily for at least one year. 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 Gore in four weeks and your primary care in 10 days. Hemodynamic Data Phase:Rest AO : 159.0 / 50.0 ( 91.0 ) @ 8:44:00 AM 140.0 / 47.0 ( 83.0 ) @ 10:01:00 AM Access Site Site: Right Femoral artery Sheath Size: 6 Fr Hemost... Method: Suture Hemost... Success: Successful Procedure Details Findings Pre-Procedure Time Out. Identified patient by full name and date of as verbalized by the patient/guarantor. Does the consent match the physician's order: Yes. Accurate & Complete Informed Consent: Yes. Inpatient/Outpatient History & Physical on Chart: Yes. If H&P is completed, is and addenduem needed: No; If yes, is the addendum complete: N/A. Visualize and Verify Site with Patient/Guarantor: N/A. Relevant Radiology Images available: Yes. Pre-op teaching completed and patient verbalized understanding. The risks, benefits, and alternatives of sedation and/or procedure were discussed by physician. The patient agrees to continue. Procedure started. Correct patient, site and procedure confirmed by cath team. PERRLA. Strong, equal hand farmworkers bilaterally. Lungs clear x 5 lobes. IV Site on Arrival: 20 gauge in the left forearm. IV Fluids: 0.9% NaCl at KVO. 0 mL infused prior to manager cath lab. Pre Procedural Pulses: bilateral dorsalis pedis was Doppled. Pre Procedural Pulses: bilateral posterior tibial was Doppled. Pre Procedural Pulses: bilateral radial was 3+. Oxygen started at 2liters/min via nasal canula. bilateral groins was prepped with chloroprep then draped in the usual sterile fashion. Baseline sample Acquired. HR: 88 BPM. Physician arrived. Physician scrubbed in. Immediate Pre-Procedure Time Out. Correct Patient: Yes; Correct Procedure: Yes; Correct Site: Yes; Correct Patient Position: Yes; Correct Supplies: Yes; Dried Flammable Prep: Yes; Blood Products Available: N/A;. Lidocaine 1% infiltrated to the left groin. Arterial access obtained with micropuncture set. A 5FrFr UF catheter in over wire. Abdominal aortogram performed in AP @ 10 mL/sec for a total of 30 mL. Catheter postioned above the bifurcation of the iliacs. Aortagram performed @ 10 mL/sec for a total of 30 mL. Glidewire inserted through the catheter. Wire out. DSA performed of the right common femoral artery. Glidewire inserted. Catheter out OTW. The 6Fr sheath exchanged for a 45cm Flexor sheath. Seeker inserted OTW. Glidewire removed. Command wire inserted. Wire out. Glidewire inserted. Wire out. Glidewire inserted. Seeker removed OTW. Inflation number : 1 A Shockwave 6.0x80mm was prepped and advanced across the Superficial Femoral, Right , then inflated to 2 [place]AMAR for 0:41 seconds. Inflation number: 2 The Shockwave 6.0x80mm was reinflated across the Superficial Femoral, Right, to 2 LAMAR for 0:19 seconds. Inflation number: 3 The Shockwave 6.0x80mm was reinflated across the Superficial Femoral, Right, to 2 LAMAR for 0:35 seconds. Inflation number: 4 The Shockwave 6.0x80mm was reinflated across the Superficial Femoral, Right, to 2 LAMAR for 0:39 seconds. Inflation number: 5 The Shockwave 6.0x80mm was reinflated across the Superficial Femoral, Right, to 4 LAMAR for 0:39 seconds. Inflation number: 6 The Shockwave 6.0x80mm was reinflated across the Superficial Femoral, Right, to 6 LAMAR for 0:29 seconds. Inflation number: 1 The Shockwave 6.0x80mm was reinflated across the Proximal Superficial Femoral, Right, to 6 LAMAR for 0:37 seconds. Inflation number: 2 The Shockwave 6.0x80mm was reinflated across the Proximal Superficial Femoral, Right, to 6 LAMAR for 0:28 seconds. Inflation number: 3 The Shockwave 6.0x80mm was reinflated across the Proximal Superficial Femoral, Right, to 6 LAMAR for 0:34 seconds. Inflation number: 4 The Shockwave 6.0x80mm was reinflated across the Proximal Superficial Femoral, Right, to 6 LAMAR for 0:34 seconds. Inflation number: 5 The Shockwave 6.0x80mm was reinflated across the Proximal Superficial Femoral, Right, to 6 LAMAR for 0:31 seconds. Balloon out over wire. ACT drawn. Results 235 seconds. Therapeutic limits - pre-heparin administration 90-150 seconds and monitoring heparin during a vascular procedure >250 seconds. Results checked. Inflation number : 7 A LUTONIX 035 6.0x40mm was prepped and advanced across the Superficial Femoral, Right , then inflated to 7 LAMAR for 3:02 seconds. Balloon out over wire. Results checked. The long sheath exchanged for a short 6Fr sheath. A Left femoral angiogram was performed to determine safe placement of closure device. A Suture was successful obtaining hemostatsis at the Right Femoral artery insertion site. Sheath(s) sutured into position with 2-0 silk and sterile 4x4's and Op-site applied over the site. No oozing or signs and symptoms of hematoma noted. Arterial sheath flushed and connected to tranducer and pressure bag with heparinized saline. PERRLA. Strong, equal hand farmworkers bilaterally. No VTE prophylaxis required. Total IV fluids: 125 mL. Post-op diagnosis: PAD. Complications: None. Estimated blood loss: 5mL-10mL. Responsiveness - Normal response to verbal stimuli; alert and oriented, PERRLA. Airway - Unaffected, no intervention required; spontaneous ventilation. Circulation: W/N/L, pulses unchanged. Nausea/Vomiting: No. Procedure completed. Patient transferred by bed to 1st floor. Vital chart was stopped. Procedure Medications Start: 7:25 AM Stop: 7:25 AM Medication: Benadryl Amount: 25 mg Route: I.V. Start: 7:27 AM Stop: 7:27 AM Medication: Versed 1 mg and Fentanyl 25 mcg Amount: 1 Route: I.V. Start: 7:35 AM Stop: 7:35 AM Medication: Versed Amount: 1 mg Route: I.V. Start: 7:37 AM Stop: 7:37 AM Medication: Fentanyl Amount: 25 mcg Route: I.V. Start: 8:06 AM Stop: 8:06 AM Medication: Heparin Amount: 5000 units Route: I.V. Start: 8:14 AM Stop: 8:14 AM Medication: Versed 1 mg and Fentanyl 25 mcg Amount: 1 Route: I.V. Start: 8:42 AM Stop: 8:42 AM Medication: Versed Amount: 1 mg Route: I.V. Start: 8:46 AM Stop: 8:46 AM Medication: Nitrogylcerin Amount: 400 mcg Route: I.A. Start: 8:53 AM Stop: 8:53 AM Medication: Heparin Amount: 2000 units Route: I.V. Start: 8:54 AM Stop: 8:54 AM Medication: Fentanyl Amount: 25 mcg Route: I.V. Start: 9:07 AM Stop: 9:07 AM Medication: Plavix Amount: 300 mg I, the attending physician, have reviewed and verified all procedure medications. Yes, all medications given per verbal order History/Risk Factors Hypertension: Yes Dyslipidemia: Yes Peripheral Arterial Disease (PAD): Yes Obesity: No Tobacco Use: Former Prior Interventions PCI: No CABG: Yes Valve Surgery: No Report Signatures Finalized by Stephanie Gore MD on 07/08/2025 01:59 AM
--- NOTE | 2025-06-12 07:21 | W.PM.OPSUD ---
Surgery/Procedure H&P Update DATE OF PROCEDURE: June 12, 2025 DATE H&P PERFORMED: 05/21/25 PREOP DIAGNOSIS: Critical limb ischemia with nonhealing ulcer, severe PAD PRIMARY INDICATION FOR PROCEDURE: 85-year-old female past medical history significant for hypertension hyperlipidemia coronary artery disease severe peripheral arterial disease history of intermittent claudication now with critical limb ischemia nonhealing right foot ulcer and pain at rest is presenting for peripheral angiogram/percutaneous venoplasty/atherectomy lithotripsy stent placement coated balloon if indicated. Patient has been struggling from nonhealing right foot wound, she underwent CTA with runoff which turns out to be abnormal with severe peripheral arterial disease. It is the reason patient has been scheduled today. PLANNED PROCEDURE: Operation Date: 06/12/25 07:00 Proposed Procedures p Peripheral Diagnostic - Periph Angio Bilat(Bilateral) - Stephanie Gore MD PATIENT REASSESSED PRIOR TO SEDATION, WITH NO CHANGE NOTED: Yes PHYSICAL EXAM: alert, oriented x 3, clear to auscultation bilaterally, regular rate & rhythm and operative site marked AIRWAY EVAL/ANESTHESIA PLAN: ASA II, Risks, benefits & alternatives of sedation and/or procedure discussed and Patient agrees to continue as planned ADDITIONAL INFORMATION: Patient has been explained all risk-benefit and alternative for the procedure. Patient understood 2% risk of stroke major bleed. Patient understand 5 to 10% risk of minor bleeding oozing infection hematoma and limb threatening ischemia leading to urgent or emergent vascular surgery and worst-case scenario amputation of the limb because of thromboembolism or due to ischemic leg. Patient clearly understood it and would like to proceed with it.
--- NOTE | 2025-06-12 09:24 | PM.PROC ---
Procedure Note: Date of procedure: 06/12/25 Pre-procedure diagnosis: Critical limb ischemia, PAD Procedure: Peripheral angiogram was performed for critical limb ischemia nonhealing ulcers on the right foot. Patient was noted to have 100% chronically occluded highly calcified common femoral artery, 90% distal SFA, 80% mid popliteal, she also had 100% occluded anterior tibial posterior tibial and peroneal at the ostium Anterior tibial was filled through collateral in the distal segment. Lithotripsy and drug-coated balloon angioplasty of right common femoral artery with reasonable good result 100% lesion was reduced to 50% Lithotripsy of right distal SFA and popliteal vessel with excellent angiographic result achieved. Patient has chronically occluded highly calcified anterior posterior and peroneal tibial arteries not amenable to intervention Anterior tibial fills through collaterals. After treatment of common femoral popliteal and SFA of the right side robust collaterals were noted filling the anterior tibial. Given patient nature of the disease we excepted the result. Plan: Bedrest for 5 hours after pulling out sheath, pull out sheath once PTT less than 45 Patient was reloaded with Plavix 300 mg. Add Xarelto 2.5 mg at the time of discharge, continue aspirin and statin Continue home medications IV fluid 100 mL/h for 1 L Full note to be dictated Coding Level of Care Code Acute Code for Barbaraabdifatah Zarco
--- NOTE | 2025-06-12 10:04 | PC.NURSE ---
patient received to floor ~0930 s/p peripheral angiogram with angioplasty and sheath with pressure bag attached to left femoral artery. No s/s of bleeding or hematoma formation observed. Instructed patient on site care with restrictions. Patient verbalized complete understanding. Patient denies pain. No distress observed. Breakfast provided.
[2025-06-12 12:04] LABS: Partial Thromboplastin Time 74.1 SECONDS (23.9-36.7)
[2025-06-12 14:14] LABS: Partial Thromboplastin Time 29.0 SECONDS (23.9-36.7)
[2025-06-12] MEDS: fentaNYL 50 mcg/mL INJ 2mL IVP (14:38)
--- NOTE | 2025-06-12 15:30 | PC.NURSE ---
Initiated Sheath removal per protocol at 1437. Hemostasis achieved immediately. Maintained pressure to site for 20min. VS remained WNL. Patient was medicated for pain during procedure as documented. No s/s of bleeding or hematoma formation observed. Patient tolerated well. Covered site with 2x2 and bio-occlusive dressing. Instructed patient on site care and restrictions. Patient verbalized complete understanding.
[2025-06-12] MEDS: hyDRALAzine 20 mg/mL INJ 1 mL 10 MG IVP (20:23)
[2025-06-13] VITALS (10 sets, daily range): BP systolic 124–160; BP diastolic 59–84; PULSE 70–91; RESP 15–21; TEMP 36.6–36.7; O2SAT 92–96
[2025-06-13 03:30] LABS: Hematocrit 38.3 % (36-47); Hemoglobin 12.80 g/dL (11.27-16.99); Mean Corpuscular HGB Conc 33.4 g/dL (30-55); Mean Corpuscular Hemoglobin 29.8 pg (27-33); Mean Corpuscular Volume 89.3 fl (85-98); Nucleated Red Blood Cells % 0 %; Platelet Count 240 10^3/cmm (157-399); Red Blood Count 4.29 10^6/uL (3.85-5.65); White Blood Count 13.81 10^3/uL (3.29-11.43)
[2025-06-13 03:56] LABS: Anion Gap 16.8 (5-19); Blood Urea Nitrogen 14 mg/dL (8-23); Calcium 9.1 mg/dL (8.5-10.5); Carbon Dioxide 24 mmol/L (22-29); Chloride 95 mmol/L (98-107); Creatinine Clr Calc Pharmacy 57.2137; Glucose 324 mg/dL (65-115); Osmolality Calculated 287 mOsm/kg (285-295); Potassium 3.8 mmol/L (3.5-5.1); Sodium 132 mmol/L (136-145)
--- NOTE | 2025-06-13 14:06 | PM.DCS ---
Discharge Providers Date of Admission: June 12, 2025 Date of Discharge: June 13, 2025 Attending Provider at Discharge: Stephanie Gore MD Primary Care Provider: Kadi Durant DO Reason for Visit Reason for Visit: I73.9 Hospital Course Hospital Course 85-year-old female past medical history significant for hypertension hyperlipidemia diabetes mellitus was observed overnight post percutaneous angioplasty of right common femoral SFA and popliteal with good results. Procedure was as follows. Peripheral angiogram was performed for critical limb ischemia nonhealing ulcers on the right foot. Patient was noted to have 100% chronically occluded highly calcified common femoral artery, 90% distal SFA, 80% mid popliteal, she also had 100% occluded anterior tibial posterior tibial and peroneal at the ostium Anterior tibial was filled through collateral in the distal segment. Lithotripsy and drug-coated balloon angioplasty of right common femoral artery with reasonable good result 100% lesion was reduced to 50%, since it is a common femoral artery on the hip joint and because of the fact there is calcium nodule, stenting is not an option therefore we excepted result as we have 50% reduction in the lesion and now vessel is open.Lithotripsy of right distal SFA and popliteal vessel with excellent angiographic result achieved.Patient has chronically occluded highly calcified anterior posterior and peroneal tibial arteries not amenable to intervention Anterior tibial fills through collaterals. After treatment of common femoral popliteal and SFA of the right side robust collaterals were noted filling the anterior tibial. Given patient nature of the disease we excepted the result. Post op course was uncomplicated. This morning overall she is doing fine from a vascular perspective she has good anterior and posterior tibial dopplerable pulses the right leg is warm and moist. Left common femoral sheath insertion wound healed nicely without bruising or hematoma. Patient is being discharged home on Plavix with Xarelto and home medication at this point I will stop aspirin. We will follow-up on her in the cardiology clinic in 7 to 10 days Physical Exam Const: OTHER: GENERAL: Patient is alert, awake and oriented x3. HEART: Regular S1 and S2. No murmur, rub or gallop. LUNGS: Clear to auscultate bilaterally. CENTRAL NERVOUS SYSTEM: Grossly nonfocal. EXTREMITIES: Lower extremities with out edema bilaterally. Urinary Catheter Management: Borges Latex Free: Cath Placed During This Visit: yes Urinary Catheter Date of Insertion: 06/12/25 Urinary Catheter Time of Insertion: 06:40 Discharge Data Studies Completed and Pending Pending at discharge Category Date Time Status MANAGER ANALYSIS request for service Routine Exams 06/12/25 06:00 Taken Laboratory Results WBC 13.81 10^3/uL (3.29-11.43) H 06/13/25 03:16 RBC 4.29 10^6/uL (3.85-5.65) 06/13/25 03:16 Hgb 12.80 g/dL (11.27-16.99) 06/13/25 03:16 Hct 38.3 % (36-47) 06/13/25 03:16 MCV 89.3 fl (85-98) 06/13/25 03:16 MCH 29.8 pg (27-33) 06/13/25 03:16 MCHC 33.4 g/dL (30-55) 06/13/25 03:16 RDW 14.0 % (12.1-15.1) 06/13/25 03:16 Plt Count 240 10^3/cmm (157-399) 06/13/25 03:16 MPV 10.6 fL (7.4-10.4) H 06/13/25 03:16 Neut % (Auto) 76.5 % 06/13/25 03:16 Lymph % (Auto) 13.3 % 06/13/25 03:16 [place] % (Auto) 9.2 % 06/13/25 03:16 Eos % (Auto) 0.2 % 06/13/25 03:16 Baso % (Auto) 0.4 % 06/13/25 03:16 Neut # (Auto) 10.55 10^3/uL (1.8-7.7) H 06/13/25 03:16 Lymph # (Auto) 1.8 10^3/uL (0.8-4.8) 06/13/25 03:16 [place] # (Auto) 1.3 10^3/uL (0.2-0.9) H 06/13/25 03:16 Eos # (Auto) 0.0 10^3/uL (0.0-0.8) 06/13/25 03:16 Baso # (Auto) 0.1 10^3/uL (0.0-0.1) 06/13/25 03:16 Nucleated RBC % (auto) 0 % 06/13/25 03:16 Nucleated RBCs # 0.0 /100WBC 06/13/25 03:16 APTT 29.0 SECONDS (23.9-36.7) D 06/12/25 13:54 Sodium 132 mmol/L (136-145) L 06/13/25 03:16 Potassium 3.8 mmol/L (3.5-5.1) 06/13/25 03:16 Chloride 95 mmol/L (98-107) L 06/13/25 03:16 Carbon Dioxide 24 mmol/L (22-29) 06/13/25 03:16 Anion Gap 16.8 (5-19) 06/13/25 03:16 BUN 14 mg/dL (8-23) 06/13/25 03:16 Creatinine 0.7 mg/dL (0.5-0.9) 06/13/25 03:16 GFR Calculation Not Reportable 06/13/25 03:16 Glucose 324 mg/dL (65-115) H 06/13/25 03:16 Calculated Osmolality 287 mOsm/kg (285-295) 06/13/25 03:16 Calcium 9.1 mg/dL (8.5-10.5) 06/13/25 03:16 Vitals Last Vital Signs Temp 97.8 F 06/13/25 11:55 Pulse 91 06/13/25 11:55 Resp 21 H 06/13/25 11:55 BP 160/84 06/13/25 11:55 Pulse Ox 92 06/13/25 06:00 O2 Del Method Room Air 06/12/25 06:00 Discharge Plan Discharge Patient Disposition: Home Prescriptions: New rivaroxaban [Xarelto] 2.5 mg tablet 2.5 mg PO BID Qty: 180 0RF Continued aspirin 81 mg tablet 81 mg PO DAILY melatonin 10 mg capsule 10 mg PO DAILY tramadol 50 mg tablet 50 mg PO TID PRN (Reason: pain) Qty: 90 2RF famotidine 20 mg tablet 20 mg PO DAILY (DME) Diabetic shoes with 3 sets of insoles See Rx Instructions .Route .MEDSUPPLY Qty: 1 0RF Rx Instructions: As directed by [facility] amlodipine 5 mg tablet 5 mg PO BID Qty: 90 3RF clopidogrel [Plavix] 75 mg tablet 75 mg PO DAILY Qty: 90 3RF ezetimibe 10 mg tablet 10 mg PO DAILY Qty: 90 3RF furosemide 40 mg tablet 40 mg PO DAILY Qty: 90 3RF hydralazine 100 mg tablet 100 mg PO TID Qty: 270 3RF losartan 50 mg tablet 50 mg PO BID Qty: 180 3RF metoprolol tartrate 100 mg tablet 100 mg PO BID Qty: 180 3RF nitroglycerin 0.4 mg tablet, sublingual 0.4 mg SUBLINGUAL Q5M PRN (Reason: chest pain) Qty: 30 3RF Rx Instructions: do not exceed 3 doses per episode spironolactone 50 mg tablet 50 mg PO DAILY Qty: 90 3RF atorvastatin [Lipitor] 80 mg tablet 80 mg PO DAILY Qty: 90 1RF glipizide 10 mg tablet extended release 24hr 10 mg PO BID Qty: 180 1RF insulin glargine [Lantus Solostar U-100 Insulin] 100 unit/mL (3 mL) insulin pen 40 unit SUBCUT BID 90 Days Qty: 72 1RF Rx Instructions: 45u in the AM, 40u in the pm Sow Farm Manager OK for DC: Cardiology Discharge Order = DC NOW: Discharge Order (Routine); Ordered 06/13/25 Ordered By: Stephanie Gore Referrals: Kadi Durant DO [Primary Care Provider, Family Practice] Rodrigo Nunes MD [Physician, Cardiology] - 06/27/25 11:45 am Diet: Cardiac Activity: Resume usual activity Patient Instructions: Rivaroxaban (By mouth), Peripheral Vascular Stent Placement (DC), Peripheral Vascular Angioplasty (DC) Activity Restrictions/Additional Instructions: No lifting of more than gallon of milk for the next 24 hours. Print Language: Korean Discharge Attestations Time Spent in Discharge Care*: greater than 30 min Quality Metrics Clinical Quality Measures [ No reported AMI, CVA or VTE this stay] Coding Level of Care Code Acute Code for Chg Carolee
--- NOTE | 2025-06-13 14:30 | PC.NURSE ---
Discharge Note Patient discharged to home via wheelchair accompanied by family. Discharge instructions reviewed with patient and/or customer loyalty representative. Mobile pharmacy medications and/or prescriptions provided. Belongings/home medications returned. Educated pt on new med Xarelto that she has to take 2.5 mg twice a day, coupon for xarelto provided. informed pt that she needs to stop aspirin, post angiogram wound care and activity restrictions for home care discuss to pt.
== END 2025-06-13 14:24 | disposition home or self-care (01) ==
LOC: CCL 05:58 → CSU 06-13 07:49
PROVIDERS: PCP Family Medicine; Visit Provider Internal Medicine Cardiovascular Disease
DX: I70.221 Atherosclerosis of native arteries of extremities with rest pain, right leg (principal); I74.5 Embolism and thrombosis of iliac artery; L97.519 Non-pressure chronic ulcer of other part of right foot with unspecified severity; I10 Essential (primary) hypertension; E78.5 Hyperlipidemia, unspecified; Z87.891 Personal history of nicotine dependence; E11.9 Type 2 diabetes mellitus without complications; Z79.82 Long term (current) use of aspirin; Z79.02 Long term (current) use of antithrombotics/antiplatelets; Z79.4 Long term (current) use of insulin; I25.10 Atherosclerotic heart disease of native coronary artery without angina pectoris; G47.33 Obstructive sleep apnea (adult) (pediatric); K21.9 Gastro-esophageal reflux disease without esophagitis
CPT/HCPCS: 36415; 37224; 51702; 75625; 75716; 80048; 85025; 85347; 85730; 99152; 99153; C1725; C1769; C1887; C1894; C2623; C9764; J0360; J1200; J1644; J2250; J3010; J3490; J7030; J9999; Q9967

== ENCOUNTER 2025-06-16 13:26 | Emergency (ER) | payer MEDICARE, SELFPAY ==
[2025-06-16 13:39] VITALS: BP 148/69; PULSE 77; RESP 17; TEMP 36.7; O2SAT 95; BMI 33.5
--- NOTE | 2025-06-16 16:17 | ED_ITS ---
HPI - Extremity Problem 2 General: Chief complaint: Extremity Problem,Nontraumatic Stated complaint: R leg redness, pain, 4 days post op Time Seen by Provider: 06/16/25 16:04 Source: patient and family Mode of arrival: ambulatory Limitations: no limitations History of Present Illness: Patient is an 85-year-old female presents to the ED today along with family with a complaint of pain and mild edema involving her right lower leg as well as redness to the right foot. Patient states she has chronic right foot ulcers that are managed by podiatry but will not heal due to her severe peripheral arterial disease. She underwent balloon angio to the right lower extremity involving her common femoral artery, SFA, and popliteal arteries by Dr. Gore with good flow restored. This was performed 3 days ago-she states over the past 1-2 days she has noticed pain and some mild swelling and also feels like her foot is red and warm. MD Complaint: extremity pain and extremity swelling Onset (ago): day(s) Pain Consistency: constant Location: right and lower extremity Radiation: none Relieving factors: nothing Exacerbating factors: nothing Associated symptoms: Reports no associated symptoms; Deny chest pain or fever(s) Context: recent surgery/procedure Related Data Home Medications ?Medication ?Instructions ?Recorded ?Confirmed famotidine 20 mg tablet 20 mg PO DAILY 08/16/2305/29 melatonin 10 mg capsule 10 mg PO DAILY 02/03/2505/29 Previous Rx's ?Medication ?Instructions ?Recorded Diabetic shoes with 3 sets of #1 ea 10/23/24 insoles tramadol 50 mg tablet 50 mg PO TID PRN pain #90 ta bs 03/18/25 amlodipine 5 mg tablet 5 mg PO BID #90 tabs 5 clopidogrel 75 mg tablet (Plavix) 75 mg PO DAILY #90 t abs 04/24/25 ezetimibe 10 mg tablet 10 mg PO DAILY #90 tabs 03/29 04/21 furosemide 40 mg tablet 40 mg PO DAILY #90 tabs 03/29 04/21 hydralazine 100 mg tablet 100 mg PO TID #270 tabs 03/29 04/21 losartan 50 mg tablet 50 mg PO BID #180 tabs 04/24 metoprolol tartrate 100 mg tablet 100 mg PO BID #180 t abs 04/24/25 nitroglycerin 0.4 mg sublingual 0.4 mg sublingual Q5M PRN chest 04/24/25 tablet pain #30 tabs spironolactone 50 mg tablet 50 mg PO DAILY #90 tabs atorvastatin 80 mg tablet (Lipitor) 80 mg PO DAILY #90 tabs 06/10/25 glipizide 10 mg tablet, extended 10 mg PO BID #180 tab s 06/10/25 release 24 hr insulin glargine 100 unit/mL (3 40 unit (0.4 mL) SUBCU T BID 90 06/12/25 mL) subcutaneous pen (Lantus days #72 mL Solostar U-100 Insulin) rivaroxaban 2.5 mg tablet (Xarelto) 2.5 mg PO BID #180 tabs 06/13/25 cephalexin 500 mg capsule 500 mg PO Q6H 7 days #28 cap s 06/16/25 ciprofloxacin HCl 500 mg tablet 500 mg PO Q12H #14 tab s 06/16/25 (Cipro) Allergies Allergy/AdvReac Type Severity Reaction Status Date / Time codeine AdvReac Mild unknown Verified 06/16/25 09:45 lisinopril AdvReac Mild ADR-Cough Verified 06/16/25 09:45 morphine AdvReac Mild unknown Verified 06/16/25 09:45 Penicillins AdvReac Mild unknown Verified 06/16/25 09:45 Review of Systems 2 Const: Denies: fever(s), chills, body aches, fatigue or malaise Card: Denies: chest pain Resp: Denies: dyspnea Musc: Reports: extremity pain and extremity swelling; Denies: joint pain or joint swelling Skin/Breast: Reports: erythema (R foot) Neuro: Denies: numbness in extremities or sensory changes PFSH ED 2 PFSH: Medical History Osteoporosis Atheroscler of [place] artery of both legs with intermit claudication Aortic valve sclerosis TARIK (obstructive sleep apnea) Diastolic dysfunction Chronic right hip pain Osteoarthritis Mixed hyperlipidemia Controlled type 2 diabetes mellitus, with long-term current use of insulin GERD (gastroesophageal reflux disease) Essential hypertension Surgical History History of bilateral hip hemiarthroplasty Left History of cardiac cath Prox LAD, mid RCA and CX 09/17 History of atherectomy with stenting - L SFA and pop artery 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 - [place] - four vessel History of amputation of toe History of hip surgery bilateral History of surgery on arm Family History Other Cancer Diabetes Social History Smoking and tobacco/nicotine status: former use of tobacco/nicotine Alcohol intake: never Substance/Drug Use: never Physical Exam 2 Const: COMMON NORMALS: no acute distress, average body habitus, no limitations, healthy appearing, alert and well nourished GENERAL APPEARANCE: cooperative ORIENTATION/CONSCIOUSNESS: Yes awake, Yes oriented to person, Yes oriented to place and Yes oriented to time Resp: COMMON NORMALS: normal respiratory effort and clear to auscultation bilaterally AUSCULTATION: clear to auscultation bilaterally Cardio: COMMON NORMALS: regular rate and regular rhythm RATE: regular rate RHYTHM: regular rhythm Extremity: NARRATIVE EXTREMITY EXAM: L inguinal puncture site appears normal with no pain/hematoma OTHER: mild edema to distal R LE; she has doppler DP/PT pulses present; patient chronic foot ulcers to 3rd digit and plantar great toe; her R foot is erythematous and warm to the touch w/o streaking Neuro: COMMON NORMALS: moves all extremities, no focal motor deficits and no sensory deficits noted SENSORIUM/ORIENTATION: Yes alert, Yes oriented to person, Yes oriented to place and Yes oriented to time Skin: NARRATIVE SKIN EXAM: see above Course 2 Consultations: Consultation #1: Dr. Gore-agreed there was no need for arterial US if she has dopplerable distal pulses; did not feel DVT would be likely following procedure; agreed with the decision to place patient on antibiotics for possible cellulitis of the right foot Vital Signs: Vital signs: Vital Signs Temperature 98.1 F 06/16/25 13:39 Pulse Rate 77 06/16/25 13:39 Respiratory Rate 17 06/16/25 13:39 Blood Pressure 148/69 06/16/25 13:39 Pulse Oximetry 95 06/16/25 13:39 Oxygen Delivery Me thod Room Air 06/16/25 13:39 MDM - Extremity (Nontraumatic) Medical Decision Making Reassurance given as mild edema following this procedure can be normal due to increased blood flow to the limb. Patient has no complaints of calf pain. I think likelihood of a DVT would be unlikely. Her vital signs are stable. She does have erythema and warmth to the right foot that she states is new. She does have chronic ulcers here being managed by podiatry. Patient does have a significant white count of 21.12 as well as a significant elevation in her CRP at 183. She is not tachycardic or febrile. I think it is reasonable to trial her on outpatient antimicrobial therapy with Keflex/Ciprofloxacin and have her follow-up with her baking powder mixer. She does have follow-up with cardiology for follow up for the balloon angio next week. Medical Records I reviewed the patient's medical records. Lab Data I reviewed the patient's lab results. 06/16/25 16:06/16/25 16: Laboratory Results WBC 21.12 10^3/uL (3.29-11.43) H 06/16/25 16: RBC 4.63 10^6/uL (3.85-5.65) 06/16/25 16: Hgb 13.80 g/dL (11.27-16.99) 06/16/25 16: Hct 40.7 % (36-47) 06/16/25 16: MCV 87.9 fl (85-98) 06/16/25 16: MCH 29.8 pg (27-33) 06/16/25 16: MCHC 33.9 g/dL (30-55) 06/16/25 16: RDW 13.8 % (12.1-15.1) 06/16/25 16: Plt Count 309 10^3/cmm (157-399) 06/16/25 16: MPV 10.5 fL (7.4-10.4) H 06/16/25 16: Neut % (Auto) 80.7 % 06/16/25 16: Lymph % (Auto) 9.4 % 06/16/25 16: [place] % (Auto) 8.8 % 06/16/25 16: Eos % (Auto) 0.1 % 06/16/25 16: Baso % (Auto) 0.4 % 06/16/25: Neut # (Auto) 17.05 10^3/uL (1.8-7.7) H 06/16/25 16: Lymph # (Auto) 2.0 10^3/uL (0.8-4.8) 06/16/25 16: [place] # (Auto) 1.9 10^3/uL (0.2-0.9) H 06/16/25 16: Eos # (Auto) 0.0 10^3/uL (0.0-0.8) 06/16/25 16: Baso # (Auto) 0.1 10^3/uL (0.0-0.1) 06/16/25 16: Nucleated RBC % (auto) 0 % 06/16/25 16: Nucleated RBCs # 0.0 /100WBC 06/16/25 16: ESR 29 mm/hr (0-15) H 06/16/25 16: Sodium 127 mmol/L (136-145) L 06/16/25 16: Potassium 3.1 mmol/L (3.5-5.1) L 06/16/25 16: Chloride 85 mmol/L (98-107) L 06/16/25 16: Carbon Dioxide 28 mmol/L (22-29) 06/16/25 16: Anion Gap 17.1 (5-19) 06/16/25 16: BUN 15 mg/dL (8-23) 06/16/25 16: Creatinine 0.7 mg/dL (0.5-0.9) 06/16/25 16: GFR Calculation Not Reportable 06/16/25 16: Glucose 88 mg/dL (65-115) 06/16/25 16: Calculated Osmolality 264 mOsm/kg (285-295) L 06/16/25 16: Calcium 9.5 mg/dL (8.5-10.5) 06/16/25 16: Total Bilirubin 1.0 mg/dL (0.15-1.2) 06/16/25 16: AST 27 U/L (0-32) 06/16/25 16: ALT 27 U/L (0-33) 06/16/25 16:29 Alkaline Phosphatase 151 U/L (35-105) H 06/16/25 16: C-Reactive Protein 183.7 mg/L (0.0-4.9) H 06/16/25 16:29 Total Protein 7.9 g/dL (6.6-8.7) 06/16/25 16:29 Albumin 3.7 g/dL (3.5-5.2) 06/16/25 16:29 Globulin 4.2 g/dL (1.3-4.6) 06/16/25 16:29 No radiology studies performed this visit Discharge Plan Discharge Patient Disposition: Home Clinical Impression: Cellulitis of right foot Condition: Stable Prescriptions: New ciprofloxacin HCl [Cipro] 500 mg tablet 500 mg PO Q12H Qty: 14 0RF cephalexin 500 mg capsule 500 mg PO Q6H 7 Days Qty: 28 0RF No Action melatonin 10 mg capsule 10 mg PO DAILY tramadol 50 mg tablet 50 mg PO TID PRN (Reason: pain) Qty: 90 2RF famotidine 20 mg tablet 20 mg PO DAILY (DME) Diabetic shoes with 3 sets of insoles See Rx Instructions .Route .MEDSUPPLY Qty: 1 0RF Rx Instructions: As directed by [facility] amlodipine 5 mg tablet 5 mg PO BID Qty: 90 3RF clopidogrel [Plavix] 75 mg tablet 75 mg PO DAILY Qty: 90 3RF ezetimibe 10 mg tablet 10 mg PO DAILY Qty: 90 3RF furosemide 40 mg tablet 40 mg PO DAILY Qty: 90 3RF hydralazine 100 mg tablet 100 mg PO TID Qty: 270 3RF losartan 50 mg tablet 50 mg PO BID Qty: 180 3RF metoprolol tartrate 100 mg tablet 100 mg PO BID Qty: 180 3RF nitroglycerin 0.4 mg tablet, sublingual 0.4 mg SUBLINGUAL Q5M PRN (Reason: chest pain) Qty: 30 3RF Rx Instructions: do not exceed 3 doses per episode spironolactone 50 mg tablet 50 mg PO DAILY Qty: 90 3RF atorvastatin [Lipitor] 80 mg tablet 80 mg PO DAILY Qty: 90 1RF glipizide 10 mg tablet extended release 24hr 10 mg PO BID Qty: 180 1RF insulin glargine [Lantus Solostar U-100 Insulin] 100 unit/mL (3 mL) insulin pen 40 unit SUBCUT BID 90 Days Qty: 72 1RF Rx Instructions: 45u in the AM, 40u in the pm rivaroxaban [Xarelto] 2.5 mg tablet 2.5 mg PO BID Qty: 180 0RF Discharge Orders: Discharge ED (Routine); Ordered 06/16/25 Ordered By: Laura Delong Referrals: Kadi Durant DO [Primary Care Provider, Family Practice] Patient Instructions: Patient Portal & Norma Instructions Activity Restrictions/Additional Instructions: As we discussed, I would like you to follow-up with your baking powder mixer as soon as possible. I have placed a case management referral to try to get you a sooner appointment for this. As we discussed, I did consult with Dr. Gore who agreed that the mild swelling to your leg is normal postoperatively. I am placing you on antibiotics regarding the redness involving the right foot. You need to return to the emergency department for worsening redness or spreading redness up your leg, fevers, generally feeling worse or unwell, or any other concerns you may have. Print Language: Greek Coding Level of Care Code ED Resident Programs Assistant for Marlon Zarco
[2025-06-16 16:47] LABS: Hematocrit 40.7 % (36-47); Hemoglobin 13.80 g/dL (11.27-16.99); Mean Corpuscular HGB Conc 33.9 g/dL (30-55); Mean Corpuscular Hemoglobin 29.8 pg (27-33); Mean Corpuscular Volume 87.9 fl (85-98); Nucleated Red Blood Cells % 0 %; Platelet Count 309 10^3/cmm (157-399); Red Blood Count 4.63 10^6/uL (3.85-5.65); White Blood Count 21.12 10^3/uL (3.29-11.43)
[2025-06-16 17:06] LABS: Alanine Aminotransferase 27 U/L (0-33); Albumin Level 3.7 g/dL (3.5-5.2); Alkaline Phosphatase 151 U/L (35-105); Anion Gap 17.1 (5-19); Aspartate Amino Transferase 27 U/L (0-32); Blood Urea Nitrogen 15 mg/dL (8-23); Calcium 9.5 mg/dL (8.5-10.5); Carbon Dioxide 28 mmol/L (22-29); Chloride 85 mmol/L (98-107); Creatinine Clr Calc Pharmacy 57.3665; Globulin 4.2 g/dL (1.3-4.6); Glucose 88 mg/dL (65-115); Osmolality Calculated 264 mOsm/kg (285-295); Potassium 3.1 mmol/L (3.5-5.1); Sodium 127 mmol/L (136-145); Total Protein 7.9 g/dL (6.6-8.7)
[2025-06-16] MEDS: potassium chloride oral liq 20 mEq/15 mL UDC 40 MEQ PO (17:40)
[2025-06-16] MEDS: HYDROcodone-acetaminophen 5-325 mg Tablet 1 TAB PO (17:54)
[2025-06-16 18:16] VITALS: BP 151/99; PULSE 78; RESP 17; O2SAT 97
[2025-06-16 18:20] VITALS: BP 151/99; PULSE 71; O2SAT 97
== END 2025-06-16 18:22 | disposition home or self-care (01) ==
PROVIDERS: Emergency Medicine; Emergency Provider Physician Assistant; PCP Family Medicine
DX: L03.115 Cellulitis of right lower limb (principal); Z79.4 Long term (current) use of insulin; Z79.02 Long term (current) use of antithrombotics/antiplatelets; Z87.891 Personal history of nicotine dependence; E11.9 Type 2 diabetes mellitus without complications; I10 Essential (primary) hypertension; E78.2 Mixed hyperlipidemia
CPT/HCPCS: 36415; 80053; 85025; 85651; 86140; 99283; J9999

== ENCOUNTER 2025-06-25 04:44 | Inpatient (IN) | payer MEDICARE, SELFPAY ==
[2025-06-25] VITALS (24 sets, daily range): BP systolic 118–177; BP diastolic 62–105; PULSE 85–103; RESP 14–24; TEMP 36.2–37.1; O2SAT 90–99; BMI 32.5; BMI 31.1
--- NOTE | 2025-06-25 05:15 | CTR_ITS ---
PROCEDURE INFORMATION: Exam: CTA Abdominal Aorta and Bilateral Lower Extremities (Run-off) With Contrast Exam date and time: 06/25/2025 6:47 AM Age: 85 years old Clinical indication: Other: Necrosis right foot; Prior surgery; Surgery date: 1-6 months; Surgery type: Venous right leg; Additional info: Lower abd pain, nv TECHNIQUE: Imaging protocol: Computed tomographic angiography of the of the abdominal aorta, pelvis and bilateral lower extremities with contrast. 3D rendering (Not supervised by radiologist): MIP and/or 3D reconstructed images were created by the technologist. Radiation optimization: All CT scans at this facility use at least one of these dose optimization techniques: automated exposure control; mA and/or kV adjustment per patient size (includes targeted exams where dose is matched to clinical indication); or iterative reconstruction. Contrast material: OMNI 350; Contrast volume: 125 ml; Contrast route: INTRAVENOUS (IV); COMPARISON: CT angio abd aorta runof [id number] 05/08/2025 12:17 PM RADIATION DOSE METRICS: Total DLP (mGy-cm): 1700 FINDINGS: Aorta: No aortic aneurysm. No aortic dissection. Celiac and mesenteric arteries: No hemodynamically significant stenosis of the origin of the celiac trunk and SMA despite the presence of calcified plaque. There is a severe stenoses of the origin of the [place], unchanged from the prior study. Renal arteries: Minor stenosis of the origin of the right renal artery. The left renal artery is patent. Right iliac arteries: No occlusion or significant stenosis. Right femoral/popliteal arteries: Severe stenosis in the mid right common femoral artery secondary to densely calcified plaque. There are multifocal moderate stenoses in the mid and distal right femoral artery. There is near occlusion in the proximal right popliteal artery. Right infrapopliteal arteries: High-grade stenoses in the proximal right peroneal artery. There are multifocal areas of occlusion and reconstitution of the right anterior tibial artery. The right dorsalis pedis artery appears reconstituted by distal right peroneal branches. The right posterior tibial artery appears chronically occluded. The distal right posterior tibial artery appears reconstituted at the ankle. Left iliac arteries: No occlusion or significant stenosis. Left femoral/popliteal arteries: Mild stenoses in the mid left common femoral artery. There is a stent in the distal left femoral artery at the level of Scottie's canal. The stent appears patent but there is a [id number] degree of in stent restenosis. There are moderate to severe stenoses in the mid left popliteal artery. Left infrapopliteal arteries: The left anterior and posterior tibial arteries are occluded and reconstituted at the ankle via small peroneal artery collaterals. The proximal left peroneal artery is occluded but the mid and distal left peroneal artery is reconstituted by collaterals. Lungs: Minimal bibasilar atelectasis. Heart: The heart is normal in size. There are coronary artery calcifications. Liver: Hepatic steatosis. Gallbladder and biliary ducts: Cholelithiasis but no evidence of cholecystitis. Pancreas: Stable pancreatic atrophy. Spleen: The spleen is normal in appearance. Adrenal glands: Adreniform enlargement of each adrenal gland. Stable appearing 1.6 cm adrenal nodule. Kidneys and ureters: Small hiatus hernia. No evidence of hydronephrosis or hydroureter on either side. No nephroureteral calculi identified. Stable small 10 mm left renal cortical cyst. Stomach and bowel: The small bowel loops are not thickened and are nondilated. There is colonic diverticulosis but no evidence of diverticulitis. Appendix: The appendix was not visualized. Urinary bladder: Small volume of gas within the urinary bladder. The bladder manning do not appear thickened but given the presence of small gas droplets in the urinary bladder cystitis can not be entirely excluded. Consider UA. Reproductive: Trace gas within the endometrial canal. Endometritis can not be entirely excluded. Numerous small calcified parametrial vessels. Intraperitoneal space: Unremarkable. No free air. No significant fluid collection. Lymph nodes: No retroperitoneal adenopathy. There are small reactive appearing lymph nodes in the right external iliac chain Bones/joints: Bilateral hip prosthesis. Stable multilevel chronic degenerative changes throughout the visualized spine. No definite lytic lesions appreciated in the right great toe. It should be noted that the CT appearance of osteomyelitis is typically a late finding and not excluded by this study. Status post right 2nd toe amputation. Soft tissues: There is a suspected open wound along the medial and inferior aspect of the right great toe. There is soft tissue swelling surrounding the right great toe and multiple small gas droplets suggesting phlegmon and cellulitis. No drainable abscess visualized at this time. Diffuse edema in the subcutaneous fat in the lower legs bilaterally. CT/CT angio abd aorta runof [id number] IMPRESSION: 1. Severe peripheral arterial disease in each lower extremity including occlusive tibial artery disease as described above. The severe lower extremity peripheral arterial disease is similar in appearance to the prior exam. 2. Swelling, phlegmon and gas in the soft tissues of the right great toe suggesting significant infection. No CT evidence of right great toe osteomyelitis at this time however the CT appearance of osteomyelitis is typically a late finding. 3. Bilateral lower extremity edema concerning for cellulitis. 4. Stable severe stenoses of the origin of the [place]. 5. Cholelithiasis but no suggestion of cholecystitis. 6. Small gas droplets within the urinary bladder. Consider UA to evaluate for cystitis. 7. Gas within the endometrial canal. Endometritis not excluded.
--- NOTE | 2025-06-25 05:49 | XRR_ITS ---
PROCEDURE INFORMATION: Exam: XR Right Foot Exam date and time: 06/25/2025 6:04 AM Age: 85 years old Clinical indication: Other: RT foot wound; Prior surgery; Surgery date: 6+ months; Additional info: Worsening R foot wound TECHNIQUE: Imaging protocol: Radiologic exam of the right foot. Views: 1 or 2 views. COMPARISON: CT angio abd aorta runof [id number] 05/08/2025 12:17 PM FINDINGS: Bones/joints: Amputation of the 2nd ray at the level of the mid 2nd metatarsal. Diffuse osteopenia. Interphalangeal articular surface narrowing and spurring. Plantar spur. No plain film findings of osteomyelitis. Soft tissues: Normal. XR/XR foot RT 2V [id number] IMPRESSION: Prior amputation of the 2nd ray.
[2025-06-25] MEDS: HYDROmorphone 0.5 MG/0.5 ML INJ 0.4 MG IVP (06:04)
[2025-06-25] MEDS: piperacillin-tazobactam 4.5 GM in sodium chloride 0.9% (plus) 50 ML IV ×3 (06:05→23:10)
--- NOTE | 2025-06-25 06:13 | W.ED.WOUNDLC ---
HPI - Wound/Laceration General: Chief Complaint: Nausea/Vomiting/Diarrhea Stated Complaint: right foot injury. n/v feels bad Time Seen by Provider: 06/25/25 04:53 History of Present Illness: Patient with a history of diabetes presents with worsening right great toe wound. The wound, previously managed by her asset protection manager Dr. Fonseca, has become increasingly deep, black in color, and is now bleeding. The patient first noticed the black discoloration yesterday, with significant progression over the past three days. She has been on multiple antibiotics (Keflex, Bactrim, and Cipro) for approximately one week, but the wound has continued to worsen despite therapy. She reports recent nausea, lightheadedness, generalized weakness, and poor appetite, though she has begun eating better in the last day. She also experienced a brief episode of vomiting tonight. There is no history of recent falls, fever, abdominal pain, or respiratory symptoms. The patient underwent a vascular procedure by Dr. Pina approximately two weeks ago to restore blood flow to the foot. She changes her own bandages and has not received formal wound care. There is concern for possible bone infection (osteomyelitis) due to the deepening wound and lack of improvement. Medications: Keflex, Bactrim, Cipro (recent antibiotics); topical salve for wound care. Past Medical History: Diabetes; recent vascular intervention to restore blood flow to right foot. Surgical History: Vascular procedure to restore blood flow to right foot approximately two weeks ago. Associated symptoms: Reports nausea Related Data Home Medications ?Medication ?Instructions ?Recorded ?Confirmed famotidine 20 mg tablet 20 mg PO DAILY 08/16/23 06/25/25 melatonin 10 mg capsule 10 mg PO BEDTIME 02/03/25 06/25/25 Previous Rx's ?Medication ?Instructions ?Recorded Diabetic shoes with 3 sets of #1 ea 10/23/24 insoles tramadol 50 mg tablet 50 mg PO TID PRN pain #90 tabs 03/18/25 amlodipine 5 mg tablet 5 mg PO BID #90 tabs 04/24/25 clopidogrel 75 mg tablet (Plavix) 75 mg PO DAILY #90 tabs 04/24/25 ezetimibe 10 mg tablet 10 mg PO DAILY #90 tabs 04/24/25 furosemide 40 mg tablet 40 mg PO DAILY #90 tabs 04/24/25 hydralazine 100 mg tablet 100 mg PO TID #270 tabs 04/24/25 losartan 50 mg tablet 50 mg PO BID #180 tabs 04/24/25 metoprolol tartrate 100 mg tablet 100 mg PO BID #180 tabs 04/24/25 nitroglycerin 0.4 mg sublingual 0.4 mg sublingual Q5M PRN chest 04/24/25 tablet pain #30 tabs spironolactone 50 mg tablet 50 mg PO DAILY #90 tabs 04/24/25 atorvastatin 80 mg tablet (Lipitor) 80 mg PO DAILY #90 tabs 06/10/25 glipizide 10 mg tablet, extended 10 mg PO BID #180 tabs 06/10/25 release 24 hr insulin glargine 100 unit/mL (3 40 unit (0.4 mL) SUBCUT BID 90 06/12/25 mL) subcutaneous pen (Lantus days #72 mL Solostar U-100 Insulin) rivaroxaban 2.5 mg tablet (Xarelto) 2.5 mg PO BID #180 tabs 06/13/25 Allergies Allergy/AdvReac Type Severity Reaction Status Date / Time codeine AdvReac Mild unknown Verified 06/16/25 09:45 lisinopril AdvReac Mild ADR-Cough Verified 06/16/25 09:45 morphine AdvReac Mild unknown Verified 06/16/25 09:45 Penicillins AdvReac Mild unknown Verified 06/16/25 09:45 Review of Systems General: Reports: 10 or more systems reviewed and unremarkable except in HPI and below GI: Reports: nausea Skin/Breast: Reports: erythema and lesions [facility] PFSH: Medical History (Updated 06/27/25 @ 03:29 by Jesu Vogel DO) Osteomyelitis Osteoporosis Atheroscler of [place] artery of both legs with intermit claudication Aortic valve sclerosis TARIK (obstructive sleep apnea) Diastolic dysfunction Chronic right hip pain Osteoarthritis Mixed hyperlipidemia Controlled type 2 diabetes mellitus, with long-term current use of insulin GERD (gastroesophageal reflux disease) Essential hypertension Surgical History History of bilateral hip hemiarthroplasty Left History of cardiac cath Prox LAD, mid RCA and CX 09/17 History of atherectomy with stenting - L SFA and pop artery 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 - [place] - four vessel History of amputation of toe History of hip surgery bilateral History of surgery on arm Family History Other Cancer Diabetes Social History Smoking and tobacco/nicotine status: former use of tobacco/nicotine Alcohol intake: never Substance/Drug Use: never Physical Exam Narrative: EXAM NARRATIVE: Patient overall well-appearing, vital stable, afebrile, no acute distress. Resting comfortably in bed on arrival, GCS 15, breathing comfortably, saturating well, abdomen mildly distended but soft and no tenderness appreciated. Significant ulceration to her first metatarsal pad with large amount of surrounding appearing hematoma, no obvious underlying bone seen but unhealthy tissue, no discharge seen. Course Vital Signs: Vital signs: Vital Signs Temperature 98.3 F 06/27/25 00:00 Pulse Rate 132 H 06/27/25 00:00 Respiratory Rate 18 06/27/25 00:00 Blood Pressure 149/79 06/27/25 00:00 Pulse Oximetry 90 06/27/25 00:00 Oxygen Delivery Me thod Nasal Cannula 06/26/25 13:30 Oxygen Flow Rate 2 06/26/25 20:00 MDM - Wound/Laceration Medical Decision Making -ddx: Diabetic foot wound, osteomyelitis, NSTI, PAD, wet gangrene chronic venous stasis dermatitis, acute limb, hyperglycemia - Patient overall well-appearing, nontoxic, afebrile, vital stable. Has been on outpatient Keflex and Cipro for the last 5 days for a chronic nonhealing diabetic foot wound. No purulence, no obvious underlying bone seen, no fluctuance but concerns would be for failure of outpatient antibiotics and seemingly rapid progression of her foot wound and so pictures of her wound were taken and sent to her personal asset protection manager , Dr. Fonseca, agreed that she needed more aggressive care, WBC >25k and HR bouncing around 100 so SIRS+ with obvious source and meeting Sepsis criteria but with extensive CV hx and PAD and normotensive, full sepsis fluids not given, infectious labs were drawn and she was started on IV antibiotics and was admitted to the hospitalist for MRI and to determine further course of action, operating room versus long-term antibiotics, stable at this time, patient and daughter updated with plan of care. Lab Data 06/26/25 00:53 06/26/25 00:53 Radiology Impressions Aorta w/Runoff CTA 06/25/25 05:15 IMPRESSION: 1. Severe peripheral arterial disease in each lower extremity including occlusive tibial artery disease as described above. The severe lower extremity peripheral arterial disease is similar in appearance to the prior exam. 2. Swelling, phlegmon and gas in the soft tissues of the right great toe suggesting significant infection. No CT evidence of right great toe osteomyelitis at this time however the CT appearance of osteomyelitis is typically a late finding. 3. Bilateral lower extremity edema concerning for cellulitis. 4. Stable severe stenoses of the origin of the [place]. 5. Cholelithiasis but no suggestion of cholecystitis. 6. Small gas droplets within the urinary bladder. Consider UA to evaluate for cystitis. 7. Gas within the endometrial canal. Endometritis not excluded. Foot X-Ray 06/26/25 06:34 IMPRESSION: 1. Recent amputation of parts of the first ray as detailed above. Prior amputation of parts of the second ray. Chest X-Ray 06/26/25 13:29 IMPRESSION: 1. No acute cardiopulmonary finding. 2. Right-sided PICC line in satisfactory location. Laboratory Results WBC 26.10 10^3/uL (3.29-11.43) H 06/25/25 05:59 RBC 4.37 10^6/uL (3.85-5.65) 06/25/25 05:59 Hgb 13.10 g/dL (11.27-16.99) 06/25/25 05:59 Hct 39.2 % (36-47) 06/25/25 05:59 MCV 89.7 fl (85-98) 06/25/25 05:59 MCH 30.0 pg (27-33) 06/25/25 05:59 MCHC 33.4 g/dL (30-55) 06/25/25 05:59 RDW 13.2 % (12.1-15.1) 06/25/25 05:59 Plt Count 471 10^3/cmm (157-399) H 06/25/25 05:59 MPV 10.6 fL (7.4-10.4) H 06/25/25 05:59 Neut % (Auto) 88.3 % 06/25/25 05:59 Lymph % (Auto) 5.0 % 06/25/25 05:59 Craig % (Auto) 5.0 % 06/25/25 05:59 Eos % (Auto) 0.0 % 06/25/25 05:59 Baso % (Auto) 0.3 % 06/25/25 05:59 Neut # (Auto) 23.03 10^3/uL (1.8-7.7) H 06/25/25 05:59 Lymph # (Auto) 1.3 10^3/uL (0.8-4.8) 06/25/25 05:59 Craig # (Auto) 1.3 10^3/uL (0.2-0.9) H 06/25/25 05:59 Eos # (Auto) 0.0 10^3/uL (0.0-0.8) 06/25/25 05:59 Baso # (Auto) 0.1 10^3/uL (0.0-0.1) 06/25/25 05:59 Nucleated RBC % (auto) 0 % 06/25/25 05:59 Nucleated RBCs # 0.0 /100WBC 06/25/25 05:59 ESR 78 mm/hr (0-15) H 06/25/25 05:59 Sodium 130 mmol/L (136-145) L 06/25/25 09:45 Potassium 4.2 mmol/L (3.5-5.1) 06/25/25 09:45 Chloride 88 mmol/L (98-107) L 06/25/25 09:45 Carbon Dioxide 15 mmol/L (22-29) L 06/25/25 09:45 Anion Gap 31.2 (5-19) H 06/25/25 09:45 BUN 19 mg/dL (8-23) 06/25/25 09:45 Creatinine 0.6 mg/dL (0.5-0.9) 06/25/25 09:45 GFR Calculation Not Reportable 06/25/25 09:45 Glucose 445 mg/dL (65-115) H 06/25/25 09:45 POC Glucose 444 mg/dL (70-110) H 06/25/25 11:39 Calculated Osmolality 292 mOsm/kg (285-295) 06/25/25 09:45 Lactic Acid 2.2 mmol/L (0.5-2.2) 06/25/25 09:45 Calcium 9.3 mg/dL (8.5-10.5) 06/25/25 09:45 Phosphorus 3.1 mg/dL (2.5-4.5) 06/25/25 09:45 Magnesium 1.9 mg/dL (1.7-2.3) 06/25/25 09:45 C-Reactive Protein 258.9 mg/L (0.0-4.9) H 06/25/25 09:45 NT-Pro-B Natriuret Pep 3489 pg/mL (0-450) H 06/25/25 09:45 Lipase 8 U/L (13-60) L 06/25/25 09:45 Procalcitonin 0.12 ng/mL (0-0.5) 06/25/25 09:45 All radiology interpretation(s) finalized by discharge Critical Care Time Critical Care Time: Critical Care Time: Yes Total Critical Care Time: 34 Attestation: Sepsis secondary to worsening diabetic foot wound requiring rapid identification and coordination with specialist Discharge Plan Discharge Patient Disposition: Admitted As Inpatient Admit Provider: Yessica Arndt Clinical Impression: Diabetic foot ulcer associated with type 2 diabetes mellitus Condition: Stable Coding Level of Care Code ED Business Segment Manager for Marlon Zarco
[2025-06-25 06:14] LABS: Hematocrit 39.2 % (36-47); Hemoglobin 13.10 g/dL (11.27-16.99); Mean Corpuscular HGB Conc 33.4 g/dL (30-55); Mean Corpuscular Hemoglobin 30.0 pg (27-33); Mean Corpuscular Volume 89.7 fl (85-98); Nucleated Red Blood Cells % 0 %; Platelet Count 471 10^3/cmm (157-399); Red Blood Count 4.37 10^6/uL (3.85-5.65); White Blood Count 26.10 10^3/uL (3.29-11.43)
--- NOTE | 2025-06-25 06:23 | PM.HP ---
Providers/Chief Complaint Admitting Physician: YESSICA ARNDT DO Primary Care Provider: Kadi Durant DO Chief Complaint: right foot injury. n/v feels bad History of Present Illness Malcolm Key is a 85 year old female with medical history significant for hyperlipidemia, hypertension, diabetes type 2, peripheral vascular disease, status post revascularization of the vessels of the lower extremities, coronary artery disease, and history of ongoing diabetic wound infection over the past 2 years, presenting to the emergency room with complaints of nausea and vomiting that started last night. Patient is been taking care of by Dr. Fonseca outpatient for this foot and has seen Dr. Fonseca recently. Patient presented for further evaluation of this foot. Imaging showed patient had osteomyelitis right foot The right great toe ventral portion had been in a way into the bone by infection and patient has also cellulitis of that whole entire right foot. Official report of CT of the abdomen and pelvics and of the right lower extremity is not out yet. Review of Systems Narrative: System review upon 10 organ review were significant for musculoskeletal disorder with infection of the right great toe. Medications/Allergies Home Medications ?Medication ?Instructions ?Recorded ?Confirmed ?Last Taken ?Type famotidine 20 mg tablet 20 mg PO DAILY 08/16/23 06/16/25 06/11/25 08:00 History Diabetic shoes with 3 sets of #1 ea 10/23/24 06/16/25 Unknown Rx insoles melatonin 10 mg capsule 10 mg PO DAILY 02/03/25 06/16/25 06/11/25 21:00 History tramadol 50 mg tablet 50 mg PO TID PRN pain #90 tabs 03/18/25 06/16/25 06/11/25 21:00 Rx amlodipine 5 mg tablet 5 mg PO BID #90 tabs 04/24/25 06/16/25 06/12/25 04:30 Rx clopidogrel 75 mg tablet (Plavix) 75 mg PO DAILY #90 tabs 04/24/25 06/16/25 06/12/25 04:30 Rx ezetimibe 10 mg tablet 10 mg PO DAILY #90 tabs 04/24/25 06/16/25 06/11/25 08:00 Rx furosemide 40 mg tablet 40 mg PO DAILY #90 tabs 04/24/25 06/16/25 06/11/25 08:00 Rx hydralazine 100 mg tablet 100 mg PO TID #270 tabs 04/24/25 06/16/25 06/12/25 04:30 Rx losartan 50 mg tablet 50 mg PO BID #180 tabs 04/24/25 06/16/25 06/12/25 04:30 Rx metoprolol tartrate 100 mg tablet 100 mg PO BID #180 tabs 04/24/25 06/16/25 06/12/25 04:30 Rx nitroglycerin 0.4 mg sublingual 0.4 mg sublingual Q5M PRN chest 04/24/25 06/16/25 Unknown Rx tablet pain #30 tabs spironolactone 50 mg tablet 50 mg PO DAILY #90 tabs 04/24/25 06/16/25 06/12/25 04:30 Rx atorvastatin 80 mg tablet (Lipitor) 80 mg PO DAILY #90 tabs 06/10/25 06/16/25 06/11/25 21:00 Rx glipizide 10 mg tablet, extended 10 mg PO BID #180 tabs 06/10/25 06/16/25 06/11/25 08:00 Rx release 24 hr insulin glargine 100 unit/mL (3 40 unit (0.4 mL) SUBCUT BID 90 06/12/25 06/16/25 Unknown Rx mL) subcutaneous pen (Lantus days #72 mL Solostar U-100 Insulin) rivaroxaban 2.5 mg tablet (Xarelto) 2.5 mg PO BID #180 tabs 06/13/25 06/16/25 Unknown Rx ciprofloxacin HCl 500 mg tablet 500 mg PO Q12H #14 tabs 06/16/25 Unknown Rx (Cipro) Allergies Allergy/AdvReac Type Severity Reaction Status Date / Time codeine AdvReac Mild unknown Verified 06/16/25 09:45 lisinopril AdvReac Mild ADR-Cough Verified 06/16/25 09:45 morphine AdvReac Mild unknown Verified 06/16/25 09:45 Penicillins AdvReac Mild unknown Verified 06/16/25 09:45 PFSH Acute PFSH: Medical History Osteoporosis Atheroscler of [place] artery of both legs with intermit claudication Aortic valve sclerosis TARIK (obstructive sleep apnea) Diastolic dysfunction Chronic right hip pain Osteoarthritis Mixed hyperlipidemia Controlled type 2 diabetes mellitus, with long-term current use of insulin GERD (gastroesophageal reflux disease) Essential hypertension Surgical History History of bilateral hip hemiarthroplasty Left History of cardiac cath Prox LAD, mid RCA and CX 09/17 History of atherectomy with stenting - L SFA and pop artery 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 [facility] four vessel History of amputation of toe History of hip surgery bilateral History of surgery on arm Family History Other Cancer Diabetes Social History Smoking and tobacco/nicotine status: former use of tobacco/nicotine Alcohol intake: never Substance/Drug Use: never Vitals/I&O/Wt Last Vital Signs Temp 97.7 F 06/25/25 04:51 Pulse 85 06/25/25 06:11 Resp 16 06/25/25 04:51 BP 155/77 06/25/25 06:11 Pulse Ox 92 06/25/25 06:11 O2 Del Method Room Air 06/25/25 06:11 Weight last 48 hrs Weight 86.183 kg Physical Exam Narrative: Patient is very nauseated and throwing up into a can by the bedside here in the emergency room HEENT normocephalic/atraumatic neck neck is supple cardiovascular heart rate is regular lungs are pretty much clear abdomen soft nontender nondistended unremarkable extremities are significant for a right great toe infection with osteomyelitis and right foot cellulitis. Neurology has no focality lab studies lab studies significant for Leukocytosis with left shift Imaging results of the right foot CT showed osteomyelitis of the right great toe Data 06/25/25 05:59 Micro: Microbiology 06/25/25 05:59 Blood Culture - Preliminary Blood SPECIMEN COLLECTED A&P Assessment and plan 1. Osteoporosis: 2. CAD (coronary artery disease): 3. PVD (peripheral vascular disease): 4. Atheroscler of [place] artery of both legs with intermit claudication: 5. Critical limb ischemia of both lower extremities: Plan: Osteomyelitis of the right great toe and cellulitis of the right foot - Diabetic foot of the right great toe had been longstanding for 2 years - Dr. Fonseca who is the podiatry both outpatient and inpatient had been consulted - Patient n.p.o. for surgery - Patient is with osteomyelitis - Antibiotics initiated at this time of admission with vancomycin and Zosyn, first dose given in the emergency room and then pharmacy to dose and treat Management with morphine Reactive nausea and vomiting started 24 hours ago secondary to infection of the foot - Supportive care with antiemetic - It was documented in the system that patient has diarrhea I am at this time verifying and confirming that patient does not have diarrhea as confirmed by the patient and the daughter at the bedside No need to get stool samples Diabetes type 2 - Keep patient euglycemic GI and DVT prophylaxis in place PDMP PDMP Reviewed: Last Reviewed 06/25/25 06:48 by Yessica Arndt MD Attestations Medical Necessity Statement*: This is an 85-year-old with diarrhea peptic foot ulcer and infection significant for osteomyelitis of the right great toe with nausea and vomiting from metabolic derangement because of infection patient with this of at least 2 midnights to optimize care. Coding Level of Care Code 11737 Diagnoses Osteoporosis M81.0 CAD (coronary artery disease) I25.10 PVD (peripheral vascular disease) I73.9 Atheroscler of [place] artery of both legs with intermit claudication I70.213 Critical limb ischemia of both lower extremities I70.223 Time Spent (min) 60
--- NOTE | 2025-06-25 06:29 | PM.CONSULT ---
Providers/Reason For Consult Consulting Physician/Specialty*: Von Fonseca D.P.M./podiatry Reason for Consult*: Right diabetic foot infection Primary Care Provider: Kadi Durant DO History of Present Illness History of Present Illness Malcolm Key is a 85 year old female with history of chronic wound at the plantar aspect of her right great toe that has worsened over the past week, has failed outpatient with new onset of malaise nausea and vomiting with subjective fevers. Accompanied by her daughter. History of revascularization on 06/13/2025 with improved blood flow to the right lower extremity. Keflex and ciprofloxacin prescribed per emergency department on 06/16/2025. Patient canceled her follow-up immediately after that emergency department visit with podiatry clinic states that she could not afford transportation to the clinic. Review of Systems General: Reports: 10 or more systems reviewed and unremarkable except in HPI and below Const: Denies: fever(s) or chills Eyes: Denies: change in vision Card: Denies: chest pain or palpitations Resp: Denies: dyspnea or productive cough GI: Denies: abdominal pain, nausea or vomiting : Denies: flank pain Musc: Reports: extremity swelling, joint stiffness and deformity Skin/Breast: Reports: erythema, sores, changes in skin color, dry skin, nail changes and change in hair Neuro: Reports: numbness in extremities, sensory changes and difficulty walking Psych: Denies: suicidal ideation Endo: Denies: change in body appearance Aaron/Lymph: Denies: tender lymph nodes Medications/Allergies Home Medications ?Medication ?Instructions ?Recorded ?Confirmed ?Last Taken ?Type famotidine 20 mg tablet 20 mg PO DAILY 08/16/23 06/25/25 06/24/25 History Diabetic shoes with 3 sets of #1 ea 10/23/24 06/25/25 Unknown Rx insoles melatonin 10 mg capsule 10 mg PO BEDTIME 02/03/25 06/25/25 06/24/25 History tramadol 50 mg tablet 50 mg PO TID PRN pain #90 tabs 03/18/25 06/25/25 06/11/25 21:00 Rx amlodipine 5 mg tablet 5 mg PO BID #90 tabs 04/24/25 06/25/25 06/24/25 Rx clopidogrel 75 mg tablet (Plavix) 75 mg PO DAILY #90 tabs 04/24/25 06/25/25 06/24/25 Rx ezetimibe 10 mg tablet 10 mg PO DAILY #90 tabs 04/24/25 06/25/25 06/24/25 Rx furosemide 40 mg tablet 40 mg PO DAILY #90 tabs 04/24/25 06/25/25 06/24/25 Rx hydralazine 100 mg tablet 100 mg PO TID #270 tabs 04/24/25 06/25/25 06/24/25 Rx losartan 50 mg tablet 50 mg PO BID #180 tabs 04/24/25 06/25/25 06/24/25 Rx metoprolol tartrate 100 mg tablet 100 mg PO BID #180 tabs 04/24/25 06/25/25 06/24/25 Rx nitroglycerin 0.4 mg sublingual 0.4 mg sublingual Q5M PRN chest 04/24/25 06/25/25 Unknown Rx tablet pain #30 tabs spironolactone 50 mg tablet 50 mg PO DAILY #90 tabs 04/24/25 06/25/25 06/24/25 Rx atorvastatin 80 mg tablet (Lipitor) 80 mg PO DAILY #90 tabs 06/10/25 06/25/25 06/24/25 Rx glipizide 10 mg tablet, extended 10 mg PO BID #180 tabs 06/10/25 06/25/25 06/24/25 Rx release 24 hr insulin glargine 100 unit/mL (3 40 unit (0.4 mL) SUBCUT BID 90 06/12/25 06/25/25 06/24/25 Rx mL) subcutaneous pen (Lantus days #72 mL Solostar U-100 Insulin) rivaroxaban 2.5 mg tablet (Xarelto) 2.5 mg PO BID #180 tabs 06/13/25 06/25/25 06/24/25 Rx Allergies Allergy/AdvReac Type Severity Reaction Status Date / Time codeine AdvReac Mild unknown Verified 06/16/25 09:45 lisinopril AdvReac Mild ADR-Cough Verified 06/16/25 09:45 morphine AdvReac Mild unknown Verified 06/16/25 09:45 Penicillins AdvReac Mild unknown Verified 06/16/25 09:45 PFSH Acute PFSH: Medical History (Updated 06/25/25 @ 10:25 by Von Fonseca DPM) Osteoporosis Atheroscler of [place] artery of both legs with intermit claudication Aortic valve sclerosis TARIK (obstructive sleep apnea) Diastolic dysfunction Chronic right hip pain Osteoarthritis Mixed hyperlipidemia Controlled type 2 diabetes mellitus, with long-term current use of insulin GERD (gastroesophageal reflux disease) Essential hypertension Surgical History History of bilateral hip hemiarthroplasty Left History of cardiac cath Prox LAD, mid RCA and CX 09/17 History of atherectomy with stenting - L SFA and pop artery 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 [facility] four vessel History of amputation of toe History of hip surgery bilateral History of surgery on arm Family History Other Cancer Diabetes Social History Smoking and tobacco/nicotine status: former use of tobacco/nicotine Alcohol intake: never Substance/Drug Use: never Vitals/I&O/Wt Last Vital Signs Temp 97.7 F 06/25/25 04:51 Pulse 85 06/25/25 06:11 Resp 16 06/25/25 04:51 BP 155/77 06/25/25 06:11 Pulse Ox 92 06/25/25 06:11 O2 Del Method Room Air 06/25/25 06:11 Weight last 48 hrs Weight 190 lb Physical Exam Narrative: GENERAL: Patient is alert and oriented ?3 and in no acute distress. The following is a focused bilateral lower extremity exam. VASCULAR: Dorsalis pedis diminished bilaterally. Posterior tibial arteries diminished. Capillary refill time less than 5 seconds to the distal hallux bilaterally. Calf is supple and nontender proximally and distally. No pedal edema, decreased pedal hair growth noted. NEUROLOGICAL: Protective sensation intact 0/10 sites, tested with [place] monofilament to bilateral feet. DERMATOLOGICAL: Ellis grade 2 wound to the right great toe with fibrotic base, hyperkeratotic margin and mild periwound erythema without purulent drainage, does not probe to tendon or bone. Measures 1.1 cm x 1.3 cm x 0.2 cm with granular base. Eschar at the tuft of the right third toe. MUSCULOSKELETAL: Status post right second toe amputation. Muscle strength 5 out of 5 in all 3 planes to the bilateral foot and ankle. Tenderness at dystrophic toenails. Bilateral pes planus. Bilateral hallux rigidus with decreased dorsiflexion, functional hallux rigidus bilaterally with 0 degrees of dorsiflexion appreciated when loading the first ray. CARDIOVASCULAR: S1, S2, normal rate, normal rhythm. Dorsalis pedis and posterior tibial arteries palpable. LUNGS: Clear to auscltation, no use of acessory muscles, no crackles or wheezes. Data 06/25/25 05:59 06/25/25 09:45 Micro: Microbiology 06/25/25 05:59 Blood Culture - Preliminary Blood SPECIMEN COLLECTED A&P Assessment and plan 1. Peripheral arterial disease: 2. Cellulitis of right foot: 3. Non-pressure chronic ulcer of other part of right foot with necrosis of bone: Right plantar hallux interphalangeal joint wound probes directly to bone. 4. Gangrene of right foot: Plan: 85-year-old diabetic female with PAD, revascularization 06/13/2025 presents with gangrenous changes to the right medial forefoot. Malaise and nausea over the past 3 days has failed outpatient oral antibiotics. - Positive probe to bone test right hallux wound - Cellulitis right medial forefoot - X-ray per my interpretation right foot taken today 06/25/2025 demonstrates a collection of soft tissue emphysema medial to the first metatarsal phalangeal joint. - White blood cell count 26.1, erythrocyte sedimentation rate 78, CRP pending. Recommended patient to be admitted to hospital service and to be started on empiric IV antibiotic therapy, remain n.p.o. and scheduled for partial first ray amputation of the right foot today at noon. Wound will be required to be left open due to gas producing organisms, will monitor postoperative course and plan for delayed closure once soft tissue is improved hopefully in the next 2 to 3 days. PDMP PDMP Reviewed: Not Reviewed Coding Level of Care Code Acute Code for [facility] Diagnoses Peripheral arterial disease I73.9 Cellulitis of right foot L03.115 Non-pressure chronic ulcer of other part of right foot with necrosis of bone L97.514 Gangrene of right foot I96
[2025-06-25] MEDS: iohexol 350 mg/mL 500 mL Btl (per mL) IV (07:24)
[2025-06-25] MEDS: pantoprazole 40 mg SDV IVP (07:33)
[2025-06-25] MEDS: ondansetron 2 mg/ML SDV 2 mL 4 MG IVP ×2 (07:35→18:44)
--- NOTE | 2025-06-25 08:42 | PC.NURSE ---
PT POC Glucose 418. Spoke with Dr. Bennett, He gave verbal order to give 10 units of sliding scale insulin instead of the ordered 14, D/T PT NPO until SX
[2025-06-25 10:26] LABS: Lactic Sepsis W/Reflex 2.2 mmol/L (0.5-2.2)
[2025-06-25 10:37] LABS: NT Pro B Type Natriuretic Pept 3489 pg/mL (0-450); Procalcitonin 0.12 ng/mL (0-0.5)
[2025-06-25 10:48] LABS: Anion Gap 31.2 (5-19); Blood Urea Nitrogen 19 mg/dL (8-23); Calcium 9.3 mg/dL (8.5-10.5); Carbon Dioxide 15 mmol/L (22-29); Chloride 88 mmol/L (98-107); Glucose 445 mg/dL (65-115); Lipase 8 U/L (13-60); Magnesium 1.9 mg/dL (1.7-2.3); Osmolality Calculated 292 mOsm/kg (285-295); Potassium 4.2 mmol/L (3.5-5.1); Sodium 130 mmol/L (136-145)
--- NOTE | 2025-06-25 11:34 | ANES.PREANE2 ---
Pre-Anesthetic Assessment Height/Weight: Height 1.63 m Weight 86.183 kg Temp Pulse Resp BP Pulse Ox O2 Del Method 97.7 F 90 14 126/69 90 Room Air 06/25/25 04:51 06/25/25 07:30 06/25/25 07:30 06/25/25 07:30 06/25/25 07:30 06/25/25 07:30 Preop Diagnosis: Gas gangrene right foot Operation Date: 06/25/25 12:10 Proposed Procedures p Incision And Drainage(Right) - Von Fonseca DPM s VS partial ray resection(Right) - Von Fonseca DPM Familial anesthetic complications: None Was Beta Nati taken within 24 hours: N/A Was Clonidine taken within 24 hours: N/A Last intake: > 8hrs Social No alcohol and No tobacco Exam alert, oriented x 3, clear to auscultation bilaterally and regular rate & rhythm Airway Mallampati: Class III Dentition: chipped Pulmonary Sleep Apnea CV/HEM Coronary Artery Disease, Hypertension and Peripheral Vascular Disease GI Gastroesophageal Reflux Disease Metabolic Diabetes Mellitus and Hyperlipidemia Anesthetic Plan ASA status: 4 Anesthesia: General Risk of > 500 ml blood loss (7ml/kg in children): No Medications/Allergies Home Medications ?Medication ?Instructions ?Recorded ?Confirmed ?Last Taken ?Type famotidine 20 mg tablet 20 mg PO DAILY 08/16/23 06/25/25 06/24/25 History Diabetic shoes with 3 sets of #1 ea 10/23/24 06/25/25 Unknown Rx insoles melatonin 10 mg capsule 10 mg PO BEDTIME 02/03/25 06/25/25 06/24/25 History tramadol 50 mg tablet 50 mg PO TID PRN pain #90 tabs 03/18/25 06/25/25 06/11/25 21:00 Rx amlodipine 5 mg tablet 5 mg PO BID #90 tabs 04/24/25 06/25/25 06/24/25 Rx clopidogrel 75 mg tablet (Plavix) 75 mg PO DAILY #90 tabs 04/24/25 06/25/25 06/24/25 Rx ezetimibe 10 mg tablet 10 mg PO DAILY #90 tabs 04/24/25 06/25/25 06/24/25 Rx furosemide 40 mg tablet 40 mg PO DAILY #90 tabs 04/24/25 06/25/25 06/24/25 Rx hydralazine 100 mg tablet 100 mg PO TID #270 tabs 04/24/25 06/25/25 06/24/25 Rx losartan 50 mg tablet 50 mg PO BID #180 tabs 04/24/25 06/25/25 06/24/25 Rx metoprolol tartrate 100 mg tablet 100 mg PO BID #180 tabs 04/24/25 06/25/25 06/24/25 Rx nitroglycerin 0.4 mg sublingual 0.4 mg sublingual Q5M PRN chest 04/24/25 06/25/25 Unknown Rx tablet pain #30 tabs spironolactone 50 mg tablet 50 mg PO DAILY #90 tabs 04/24/25 06/25/25 06/24/25 Rx atorvastatin 80 mg tablet (Lipitor) 80 mg PO DAILY #90 tabs 06/10/25 06/25/25 06/24/25 Rx glipizide 10 mg tablet, extended 10 mg PO BID #180 tabs 06/10/25 06/25/25 06/24/25 Rx release 24 hr insulin glargine 100 unit/mL (3 40 unit (0.4 mL) SUBCUT BID 90 06/12/25 06/25/25 06/24/25 Rx mL) subcutaneous pen (Lantus days #72 mL Solostar U-100 Insulin) rivaroxaban 2.5 mg tablet (Xarelto) 2.5 mg PO BID #180 tabs 06/13/25 06/25/25 06/24/25 Rx Allergies Allergy/AdvReac Type Severity Reaction Status Date / Time codeine AdvReac Mild unknown Verified 06/16/25 09:45 lisinopril AdvReac Mild ADR-Cough Verified 06/16/25 09:45 morphine AdvReac Mild unknown Verified 06/16/25 09:45 Penicillins AdvReac Mild unknown Verified 06/16/25 09:45 Current Medications Generic Name Dose Route Start Last Admin Trade Name Freq PRN Reason Stop Dose Admin Sodium Chloride 1,000 mls @ 75 mls/hr 06/25/25 06:23 06/25/25 08:42 Sodium Chloride 0.9% IV 75 mls/hr .[id number] MARY Administration Insulin Human Lispro 0 unit 06/25/25 08:00 06/25/25 08:53 Insulin Lispro 100 Unit/1 Ml SUBCUT 10 unit WM&BEDTIME MARY Administration Protocol Ketorolac Tromethamine 15 mg 06/25/25 06:23 06/25/25 07:34 Ketorolac 30 Mg/Ml Inj IVP 06/30/25 06:22 15 mg Q6H MARY Administration Pantoprazole Sodium 40 mg 06/25/25 06:23 06/25/25 07:33 Pantoprazole 40 Mg Sdv IVP 40 mg Q24H MARY Administration PFSH Anesthesia Medical History (Updated 06/25/25 @ 10:25 by Von Fonseca DPM) Osteoporosis Atheroscler of [place] artery of both legs with intermit claudication Aortic valve sclerosis TARIK (obstructive sleep apnea) Diastolic dysfunction Chronic right hip pain Osteoarthritis Mixed hyperlipidemia Controlled type 2 diabetes mellitus, with long-term current use of insulin GERD (gastroesophageal reflux disease) Essential hypertension Surgical History History of bilateral hip hemiarthroplasty Left History of cardiac cath Prox LAD, mid RCA and CX 09/17 History of atherectomy with stenting - L SFA and pop artery 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 [facility] - four vessel History of amputation of toe History of hip surgery bilateral History of surgery on arm Family History Other Cancer Diabetes Social History Smoking and tobacco/nicotine status: former use of tobacco/nicotine Alcohol intake: never Substance/Drug Use: never Data Anesthesia 06/25/25 05:59 06/25/25 09:45 Short CBC 06/25/25 Range/Units 05:59 WBC 26.10 H (3.29-11.43) 10^3/uL Hgb 13.10 (11.27-16.99) g/dL Hct 39.2 (36-47) % MCV 89.7 (85-98) fl Plt Count 471 H (157-399) 10^3/cmm Neut % (Auto) 88.3 % Neut # (Auto) 23.03 H (1.8-7.7) 10^3/uL BMP 06/25/25 06/25/25 05:59 09:45 Sodium Cancelled 130 L Potassium Cancelled 4.2 Chloride Cancelled 88 L Carbon Dioxide Cancelled 15 L BUN Cancelled 19 Creatinine Cancelled 0.6 Glucose Cancelled 445 H Calcium Cancelled 9.3 Cardiac Enzymes 06/25/25 06/25/25 Range/Units 05:59 09:45 NT-Pro-B Natriuret Pep Cancelled 3489 H Coags 06/25/25 06/25/25 05:59 09:45 ESR 78 H C-Reactive Protein Cancelled 258.9 H Microbiology 06/25/25 09:45 Blood Culture - Preliminary Blood SPECIMEN COLLECTED 06/25/25 05:59 Blood Culture - Preliminary Blood SPECIMEN COLLECTED
[2025-06-25 11:48] LABS: Reflex Lactate Order REFLEX LACTIC ORDERD
[2025-06-25] MEDS: insulin regular-human 100 units/1 mL 10 UNIT IVP (11:53)
--- NOTE | 2025-06-25 11:58 | P.HPUD_ITS ---
Surgery/Procedure H&P Update DATE OF PROCEDURE: June 25, 2025 DATE H&P PERFORMED: 06/25/25 H&P UPDATE INFORMATION: I have reviewed H&P completed within last 30 days, I have examined patient prior to procedure, No changes to prior documentation, H&P is in [facility] EMR on date indicated and Risks and benefits of the procedure reviewed PREOP DIAGNOSIS: Gas gangrene right foot PLANNED PROCEDURE: Operation Date: 06/25/25 12:10 Proposed Procedures p Incision And Drainage(Right) - Von Fonseca DPM s VS partial ray resection(Right) - Von Fonseca DPM
--- NOTE | 2025-06-25 12:02 | PHA.VACGOAL ---
Vancomycin Goal - Goal Vancomycin Goal:: 15-20 mg/L Vancomycin Indication:: Osteo - Therapy Current therapy:: Pip/Tazo Day of therpy:: Day []of [] . Actual body weight (kg): 190 lb - Data Labs: WBC 26.10 10^3/uL (3.29-11.43) H 06/25/25 05:59 RBC 4.37 10^6/uL (3.85-5.65) 06/25/25 05:59 Hgb 13.10 g/dL (11.27-16.99) 06/25/25 05:59 Hct 39.2 % (36-47) 06/25/25 05:59 MCV 89.7 fl (85-98) 06/25/25 05:59 MCH 30.0 pg (27-33) 06/25/25 05:59 MCHC 33.4 g/dL (30-55) 06/25/25 05:59 RDW 13.2 % (12.1-15.1) 06/25/25 05:59 Sodium 130 mmol/L (136-145) L 06/25/25 09:45 Potassium 4.2 mmol/L (3.5-5.1) 06/25/25 09:45 Chloride 88 mmol/L (98-107) L 06/25/25 09:45 Carbon Dioxide 15 mmol/L (22-29) L 06/25/25 09:45 Anion Gap 31.2 (5-19) H 06/25/25 09:45 BUN 19 mg/dL (8-23) 06/25/25 09:45 Creatinine 0.6 mg/dL (0.5-0.9) 06/25/25 09:45 GFR Calculation Not Reportable 06/25/25 09:45 Last dialysis session:: N/A Treatment plan:: new consult Regimen:: LOADING DOSE OF 2000 MG X 1 MAINTENANCE DOSE OF 750 MG Q12H PER DOSING PROTOCOL Follow up:: WILL CONTINUE TO MONITOR AND FOLLOW UP DAILY
[2025-06-25] MEDS: BUPivacaine 0.5% INJ 30 mL 15 ML INJECTION (12:20)
--- NOTE | 2025-06-25 13:11 | W.PM.BPON ---
Date of Procedure: 11/10/23 Surgeon: Von Fonseca DPM [employer] Specialist(s): Magda Procedure(s) performed: Right great toe amputation and incision of bone cortex right first metatarsal. Findings of the procedure(s): Gangrene right foot Estimated blood loss: 10 mL Specimen(s) removed: Right great toe sent to pathology for permanent. Soft tissue right great toe sent to microbiology for Gram stain, culture and sensitivity. Post-operative diagnosis: Gangrene right foot, osteomyelitis right foot great toe.
--- NOTE | 2025-06-25 13:12 | P.OP_ITS ---
Operative Report Date of procedure: June 25, 2025 Pre-op diagnosis: Osteomyelitis right great toe. Gangrene right foot. Post-op diagnosis: Same Post-op findings: Extensive gangrenous changes at the right first metatarsophalangeal joint with heavy purulence and necrotic tissue down to bone. Foul-smelling odor. Procedure done: 1) right great toe amputation. CPT code 21704 2) incision of bone cortex right first metatarsal. CPT code 16704 Implants: None Specimens removed/disposition: Deep soft tissue medial aspect of right first metatarsal phalangeal joint sent to microbiology for Gram stain, culture and sensitivity. Pathology: Right great toe sent to pathology for permanent. Surgeon: Von Fonseca DPM Cashier Assistant: Magda Estimated blood loss: 10 mL 17 minutes IV fluids: See intraoperative documentation Urine output: none Complications: No complications Findings: Extensive gangrenous changes at the right first metatarsophalangeal joint with heavy purulence and necrotic tissue down to bone. Foul-smelling odor. Brief History: 85-year-old diabetic female with PAD, revascularization 06/13/2025 presents with gangrenous changes to the right medial forefoot. Malaise and nausea over the past 3 days has failed outpatient oral antibiotics. - Positive probe to bone test right hallux wound - Cellulitis right medial forefoot - X-ray per my interpretation right foot taken today 06/25/2025 demonstrates a collection of soft tissue emphysema medial to the first metatarsal phalangeal joint. - White blood cell count 26.1, erythrocyte sedimentation rate 78, CRP pending. Recommended patient to be admitted to hospital service and to be started on empiric IV antibiotic therapy, remain n.p.o. and scheduled for partial first ray amputation of the right foot today at noon. Procedure: Under mild sedation the patient was brought to the operating room and remained on the gurney in supine position. A timeout was performed. Anesthesia was then administered by the anesthesia service. Local anesthesia was injected by myself consisting of 30 cc of one-to-one mixture 1% lidocaine and 0.5% Marcaine plain in a right Panchal block fashion. Well-padded pneumatic tourniquet applied to the right ankle. Right lower extremity was scrubbed, prepped and draped utilizing normal aseptic technique. Right foot and ankle were then elevated and tourniquet inflated to 250 mmHg. Attention was directed to the right forefoot where gangrenous changes were appreciated involving the plantar aspect of the right hallux with a full- thickness wound probing directly to bone which was devitalized at the plantar aspect of the right hallux interphalangeal joint as well as fluctuance and foul odor with soft tissue crepitus at the medial aspect of the right first metatarsal phalangeal joint. A creative soft tissue flap was maintained and planned out to preserve as much viable tissue at the amputation site to allow for possible delayed closure, full-thickness incision was performed about the right hallux maintaining a dorsal hallux flap in the right great toe was sharply disarticulated through the first metatarsal phalangeal joint and passed from the operative field, this was sent to pathology as a gross anatomical specimen for permanent. Direct visual at the head of the first metatarsal was surrounded by devitalized soft tissue and the head of the first metatarsal was of poor color and density was off [place] and soft, first metatarsal cortex was then incised sharply with pickup and 15 blade as well as sagittal saw. The incision was irrigated with Irrisept, further surrounding devitalized soft tissue was sharply and excisionally debrided with Brown pickups and a #15 blade, soft tissue necrosis extended to the most medial aspect of the right second metatarsophalangeal joint down to the level joint capsule but not extending into the joint surface or bone, was tracking medially where further devitalized soft tissue was sharply and excisionally excisionally removed. Further irrigation was performed with copious amounts of sterile saline solution. Right foot wound was then dressed with saline wet-to-dry dressing utilizing saline moistened 4 x 4 gauze, additional dry 4 x 4 gauze, Kerlix and Jared wrap without compression as to not impede vascular flow. Tourniquet was deflated and a hyperemic response is noted to the lesser distal digits of the right foot. Patient tolerated the procedure and anesthesia well and was transferred to the PACU with vital signs stable vascular status intact. After period of postoperative monitoring she will be transferred to [facility] floor to continue empiric IV antibiotics and close monitoring of her infection of the right foot. Questional margins at level of amputation with partial first ray potation of the right foot. Patient at this point is wanting to make all efforts for limb salvage, after having underwent I&D with partial first ray amputation and initiation of empiric antibiotic she will require close monitoring for advancement or progression of infection. I informed her that she is certainly at risk for a higher level of amputation such as a transmetatarsal amputation and even a below-knee amputation for source control of this current infection. She expresses understanding. I plan on rounding twice daily both a.m. and p.m. for dressing changes and wound reevaluation. Anticipate a period of monitoring prior to more definitive surgery whether that may be a higher level amputation versus a delayed closure of the current amputation site.
--- NOTE | 2025-06-25 13:35 | ANE.PACU2 ---
Inpatient post-anesthesia follow up: Airway intact: Yes Vital signs: Temperature 98.4 F Pulse Rate 94 Respiratory Rate 17 Blood Pressure 134/82 Pulse Oximetry 90 Oxygen Delivery Me thod Nasal Cannula Oxygen Flow Rate 10 Fraction of Inspir ed Oxygen Hydration adequate: Yes Nausea and vomiting: No Pain level: 1 Mental status: Baseline
[2025-06-25 13:58] LABS: Lactic Acid level (Lactate) 2.4 mmol/L (0.5-2.2)
--- OUTSIDE RECORDS SUMMARY | 2025-06-25 14:06 | XMS_ITS | Clinical Summary ---
Author Organization [facility] Address [address] [place] [address] Care Team Providers Care Inspector Motor Vehicles Name Role Phone Unavailable Primary Care Provider Unavailabl e Social History Tobacco Use Types Packs/Day Years Used Date Smoking Tobacco: Never Assessed Comments Unknown Sex and Gender Information Value Date Recorded Sex Assigned at Not on file Legal Sex Female 10:56 AM CDT Gender Identity Not on file Sexual Orientation Not on file Plan of Treatment Health Maintenance Due Date Last Done Comments DTAP/TDAP/TD VACCINES (1 - Tdap) 1959 PNEUMOCOCCAL VACCINE 50+ YEARS (1 of 1 - PCV) 01/28/19 92 ZOSTER VACCINE (1 of 2) 01/29/1992 OSTEOPOROSIS SCREENING 2007 RSV VACCINE (60+ or ) (1 - 1-dose 75+ series) 2017 INFLUENZA VACCINE (#1) 2025 Insurance MEDICARE PART A AND B
--- OUTSIDE RECORDS SUMMARY | 2025-06-25 14:07 | XMS_ITS | Clinical Summary ---
Author Organization [facility] Address [address] [place] [address] Care Team Providers Care Cherry Picker Operator Name Role Phone Juancho Duke MD Primary Care Provider Social History Tobacco Use Types Packs/Day Years Used Date Smoking Tobacco: Never Assessed Comments Unknown Sex and Gender Information Value Date Recorded Sex Assigned at Not on file Legal Sex Female 11:17 AM EDT Gender Identity Not on file Sexual Orientation Not on file Plan of Treatment Health Maintenance Due Date Last Done Comments Pneumococcal Vaccine: 50+ Ye ars (1 of 1 - PCV) 01/29/1992 Influenza Vaccine (#1) 2025 Hepatitis B Vaccine Aged Out No longe r eligible based on patient's age to complete this topic Insurance [employer] Care Teams Cherry Picker Operator Relationship Specialty Start Date End Date Juancho Duke MD [address] [place], [place] [phone] PCP - General Family Medicine 3/24/22
--- OUTSIDE RECORDS SUMMARY | 2025-06-25 14:07 | XMS_ITS | Clinical Summary ---
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 Gender Identity Not on file Sexual Orientation Not on file Plan of Treatment Health Maintenance Due Date Last Done Comments DIABETES ANNUAL FOOT EXAM 01/29/1960 DIABETES MICROALBUMIN ANNUAL SCREEN 01/29/1960 LDL CHOLESTEROL ANNUAL 01/29/1960 DTAP/TDAP/TD VACCINES (1 - Tdap) 1961 PNEUMOCOCCAL VACCINE 50+ YEA RS (1 of 2 - PCV) 1961 ZOSTER VACCINE (1 of 2) 01/29/1992 OSTEOPOROSIS SCREENING 2007 DIABETES ANNUAL RETINAL EXAM 12/07/2016 12/08/2015 RSV VACCINE (60+ or ) (1 - 1-dose 75+ series) 2017 DIABETES HBA1C Q 6 MONTHS 02/12/2022 08/14/2021, INFLUENZA VACCINE (#1) 2025 Procedures Procedure Name Priority Date/Time Associated Diagnosis Comments DIABETES EYE EXAM 12/08/2015 12:00 AM CDT from Last 3 Months or Most Recently Relevant to Health Maintenance Results * DIABETES EYE EXAM (12/08/2015 12:00 AM CDT) [facility] Scanning HEALTH MAINTENANCE Final Result from Last 3 Months or Most Recently Relevant to Health Maintenance Insurance MCR
--- OUTSIDE RECORDS SUMMARY | 2025-06-25 14:07 | XMS_ITS | Encounter Summary ---
Author Organization [employer] [facility] Address [address] [facility] [facility] [place] [address] Phone Care Team Providers Care Air Lift Operator Name Role Phone Juancho Duke MD Primary Care Provider [phone] Encounter Details Date Type Department Care Team (Late st Contact Info) Description 11/18/2021 Orders Only [facility] [employer] [address] [facility] [address] [place] [address] Stage 3 chronic kidney disease, not otherwise specified (HCC) Social History Tobacco Use Types Packs/Day Years Used Date Smoking Tobacco: Never Assessed Comments Unknown Sex and Gender Information Value Date Recorded Sex Assigned at Not on file Legal Sex Female 11:17 AM EDT Gender Identity Not on file Sexual Orientation Not on file documented as of this encounter Plan of Treatment Not on file documented as of this encounter Visit Diagnoses Diagnosis Stage 3 chronic kidney disease, not otherwise specified (HCC) documented in this encounter Care Teams Air Lift Operator Relationship Specialty Start Date End Date Juancho Duke MD [address] [place] [address] PCP - General Family Medicine 11/18/21 documented as of this encounter
--- NOTE | 2025-06-25 16:49 | P.PN_ITS ---
Subjective 2 Subjective: 85-year-old female with diabet es she states sugars run from 90 up to the 300s. He Patient states she had sleep study showing mild sleep apnea but was not recommended treatment or was not severe enough to require treatment Vitals/I&O/Wt Last Vital Signs Temp 97.9 F 06/25/25 14:25 Pulse 88 06/25/25 14:25 Resp 18 06/25/25 14:25 BP 129/65 06/25/25 14:25 Pulse Ox 92 06/25/25 14:25 O2 Del Method Room Air 06/25/25 14:16 O2 Flow Rate 10 06/25/25 13:05 06/25/25 06/25/25 06/25/25 06:59 14:59 22:59 Intake Total 1100 / 1100 940 / 2040 Output Total 1210 / 1210 Balance -110 / -110 940 / 830 Weight last 48 hrs Weight 82.157 kg Weight 86.183 kg Physical Exam 2 Narrative: General Well-developed well-nourished obese female in no acute cardiopulmonary stress CV regular rate and rhythm Lungs clear to auscultation bilaterally Left foot patient is able to discern which toe is being touched with her eyes closed with minimal inaccuracies. Right foot is in a walking boot. I open the front and she has right hallux amputation dressing is intact with some bleeding Oropharynx Mallampati 3 Urinary Catheter Management: Borges: Cath Placed During This Visit: yes Urinary Catheter Date of Insertion: 06/25/25 Urinary Catheter Time of Insertion: 08:49 Data 06/25/25 05:59 06/25/25 09:45 Micro: Microbiology 06/25/25 09:45 Blood Culture - Preliminary Blood SPECIMEN COLLECTED 06/25/25 05:59 Blood Culture - Preliminary Blood SPECIMEN COLLECTED A&P Assessment and plan 1. Osteomyelitis: Continue vancomycin and Zosyn pending culture result. Remove Borges in the morning 2. Cellulitis of right foot: As above 3. CAD (coronary artery disease): Of continue aspirin daily and home plan 4. PVD (peripheral vascular disease): aspirin daily and home Plavix 5. Controlled type 2 diabetes mellitus, with long-term current use of insulin: Continue Lantus, sliding scale insulin and weight loss 1500-calorie ADA diet as we discussed. Patient is agreeable Plan: DVT prophylaxis with heparin with planned closure in 2 to 3 days. Hold Xarelto for now PDMP PDMP Reviewed: Not Reviewed Attestations 2 Medical Necessity Statement*: Patient elaine in the hospital for IV antibiotics and delayed closure require greater than 2-3 night Coding Level of Care Code 42640 Diagnoses Osteomyelitis M86.9 Cellulitis of right foot L03.115 CAD (coronary artery disease) I25.10 PVD (peripheral vascular disease) I73.9 Controlled type 2 diabetes mellitus, with long-term current use of insulin E11.9; Z79.4 Time Spent (min) 35
[2025-06-25] MEDS: heparin 5,000 unit/mL INJ 1 mL 5000 UNIT SUBCUT (18:12)
[2025-06-26] VITALS (9 sets, daily range): BP systolic 128–151; BP diastolic 60–88; PULSE 99–116; RESP 16–20; TEMP 36.4–36.8; O2SAT 90–95
[2025-06-26] MEDS: heparin 5,000 unit/mL INJ 1 mL 5000 UNIT SUBCUT ×3 (00:27→16:50)
[2025-06-26] MEDS: ondansetron 2 mg/ML SDV 2 mL 4 MG IVP (00:27)
[2025-06-26] MEDS: piperacillin-tazobactam 4.5 GM in sodium chloride 0.9% (plus) 50 ML IV ×2 (05:33→15:12)
[2025-06-26] MEDS: insulin glargine 100 units/1 mL 40 UNIT SUBCUT (05:34)
[2025-06-26 06:21] LABS: Hematocrit 41.1 % (36-47); Hemoglobin 13.40 g/dL (11.27-16.99); Mean Corpuscular HGB Conc 32.6 g/dL (30-55); Mean Corpuscular Hemoglobin 30.2 pg (27-33); Mean Corpuscular Volume 92.6 fl (85-98); Nucleated Red Blood Cells % 0 %; Platelet Count 504 10^3/cmm (157-399); Red Blood Count 4.44 10^6/uL (3.85-5.65); White Blood Count 27.51 10^3/uL (3.29-11.43)
--- NOTE | 2025-06-26 06:34 | XR_ITS ---
WS: [id number] Exam: XR foot RT min 3V* [id number] Date/Time of Exam: 06/26/2025 7:07 AM Reason For Exam: post op Comparison 06/25/2025. There is amputation of the first ray at the level of the distal third of the metatarsal. There has been prior amputation of the second ray at the level of the mid metatarsal. No fractures identified. No destructive bone changes in the remainder of the foot. Degenerative changes in the midfoot joints. XR/XR foot RT min 3V* [id number] IMPRESSION: 1. Recent amputation of parts of the first ray as detailed above. Prior amputat ion of parts of the second ray.
[2025-06-26 06:38] LABS: Alanine Aminotransferase 42 U/L (0-33); Albumin Level 2.6 g/dL (3.5-5.2); Alkaline Phosphatase 159 U/L (35-105); Anion Gap 26.4 (5-19); Aspartate Amino Transferase 52 U/L (0-32); Blood Urea Nitrogen 18 mg/dL (8-23); Calcium 9.5 mg/dL (8.5-10.5); Carbon Dioxide 17 mmol/L (22-29); Chloride 95 mmol/L (98-107); Globulin 4.7 g/dL (1.3-4.6); Glucose 306 mg/dL (65-115); Magnesium 2.1 mg/dL (1.7-2.3); Osmolality Calculated 291 mOsm/kg (285-295); Potassium 4.4 mmol/L (3.5-5.1); Sodium 134 mmol/L (136-145); Total Protein 7.3 g/dL (6.6-8.7)
--- NOTE | 2025-06-26 06:38 | P.PN_ITS ---
Subjective 2 Subjective: Patient seen bedside this a.m., was sleeping comfortably when entering the room. Still endorses nausea and lack of appetite, is drinking sips of water and has eaten ladi crackers. Denies pain at the right foot. Vitals/I&O/Wt Last Vital Signs Temp 97.6 F 06/26/25 04:00 Pulse 105 H 06/26/25 04:00 Resp 17 06/26/25 04:00 BP 143/88 06/26/25 04:00 Pulse Ox 90 06/26/25 04:00 O2 Del Method Nasal Cannula 06/26/25 04:00 O2 Flow Rate 2 06/26/25 04:00 06/25/25 06/25/25 06/26/25 14:59 22:59 06:59 Intake Total 1100 / 1100 1240 / 2340 1050 / 3390 Output Total 1210 / 1210 700 / 1910 200 / 2110 Balance -110 / -110 540 / 430 850 / 1280 Weight last 48 hrs Weight 189 lb 6 oz Weight 181 lb 2 oz Weight 190 lb Physical Exam 2 Narrative: GENERAL: Patient is alert and oriented ?3 and in no acute distress. The following is a focused bilateral lower extremity exam. VASCULAR: Dorsalis pedis diminished bilaterally. Posterior tibial arteries diminished. Capillary refill time less than 5 seconds to the distal hallux bilaterally. Calf is supple and nontender proximally and distally. No pedal edema, decreased pedal hair growth noted. NEUROLOGICAL: Protective sensation intact 0/10 sites, tested with [place]ets[place] monofilament to bilateral feet. DERMATOLOGICAL: Dusky appearance of soft tissue at the level of the first ray amputation at the right foot, dorsal flap appears ischemic, residual erythema remains at the right foot streaking to the level of the ankle. MUSCULOSKELETAL: Status post partial first ray amputation right foot. Also history of right partial second ray amputation. No pain to palpation right foot secondary to neuropathy. Urinary Catheter Management: Borges: Cath Placed During This Visit: yes Reason for Continuing Indwelling Catheter: Acute Urinary Retention or Obstruction Urinary Catheter Date of Insertion: 06/25/25 Urinary Catheter Time of Insertion: 08:49 Data 06/26/25 00:53 06/25/25 09:45 Micro: Microbiology 06/25/25 05:59 Blood Culture - Preliminary Blood NEGATIVE TO DATE 06/25/25 09:45 Blood Culture - Preliminary Blood SPECIMEN COLLECTED A&P Assessment and plan 1. Peripheral arterial disease: 2. Cellulitis of right foot: 3. Non-pressure chronic ulcer of other part of right foot with necrosis of bone: 4. Gangrene of right foot: Plan: Status post (s/p) R partial first ray amputation (06/25/25) for R foot gas gangrene and osteomyelitis. Persistent leukocytosis (27.5). Foot viability remains highly guarded given extensive necrosis, DM, neuropathy, and PAD. Patient desires an aggressive trial of limb salvage. Plan: * Close Monitoring: Twice-daily saline wet-to-dry dressing changes to aggressively monitor soft tissue infection and viability. * Infection Control: Continue current empiric IV antibiotics. * Re-evaluation: Re-assess clinical and laboratory response over the next several days to determine definitive viability. * Risk Acknowledged: Patient understands the guarded prognosis and the substantial risk for requiring a higher level of amputation during this hospitalization (e.g., Transmetatarsal or Below-Knee Amputation) if the current infection cannot be controlled. PDMP PDMP Reviewed: Not Reviewed Attestations 2 Medical Necessity Statement*: Gangrene, sepsis, requires continued empiric of antibiotics and potential further surgical intervention. Coding Level of Care Code Acute Code for [facility] Diagnoses Peripheral arterial disease I73.9 Cellulitis of right foot L03.115 Non-pressure chronic ulcer of other part of right foot with necrosis of bone L97.514 Gangrene of right foot I96
[2025-06-26 06:46] LABS: Estmated Average Glucose 232; Hemoglobin A1C 9.7 % (4.0-6.0)
--- OUTSIDE RECORDS SUMMARY | 2025-06-26 11:50 | XMS_ITS | Clinical Summary ---
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
--- OUTSIDE RECORDS SUMMARY | 2025-06-26 11:50 | XMS_ITS | Clinical Summary ---
Author Organization [facility] Address [address] [place] [address] Care Team Providers Care Medical Clinic Manager Name Role Phone Unavailable Primary Care Provider [...]
--- OUTSIDE RECORDS SUMMARY | 2025-06-26 11:50 | XMS_ITS | Clinical Summary ---
Author Organization [facility] Address [address] [place] [address] Care Team Providers Care Parts And Service Manager Name Role Phone Juancho Duke MD Primary Care Provider [phone] Social History Tobacco Use Types Packs/Day Years [...] this topic Insurance [employer] Care Teams Parts And Service Manager Relationship Specialty Start Date End Date Juancho Duke MD [address] [place], [place] [id number] PCP - General Family Medicine 3/24/22
--- OUTSIDE RECORDS SUMMARY | 2025-06-26 11:50 | XMS_ITS | Encounter Summary ---
Author Organization [employer] [facility] Address [address] [address] [address] [place] [address] Phone Care Team Providers Care Rehab Spec Name Role Phone Juancho Duke MD Primary Care Provider [phone] Encounter Details Date Type Department Care Team (Late st Contact Info) Description 11/18/2021 Orders Only [facility] [address] [facility] [address] [place] [address] Stage 3 chronic kidney disease, [...] (HCC) documented in this encounter Care Teams Rehab Spec Relationship Specialty Start Date End Date Juancho Duke MD [address] [place] [address] PCP - General Family Medicine 11/18/21 documented as of this encounter
--- NOTE | 2025-06-26 13:00 | P.PN_ITS ---
Subjective 2 Subjective: 85-year-old female with diabet es and osteomyelitis now status post right hallux amputation yesterday by Dr. Fonseca. She continues to have an elevated white count despite IV antibiotics and surgery. White count 28,000. Blood sugars running 264-444 despite Lantus and sliding scale insulin. Patient is companied by her daughter Mayuri and son-in-law Rocky. Patient's IV failed today and they have not been able to replace it with ultrasound-guided attempt Vitals/I&O/Wt Last Vital Signs Temp 97.7 F 06/26/25 11:24 Pulse 105 H 06/26/25 11:24 Resp 16 06/26/25 11:24 BP 136/60 06/26/25 11:24 Pulse Ox 90 06/26/25 11:24 O2 Del Method Nasal Cannula 06/26/25 11:24 O2 Flow Rate 2 06/26/25 11:24 06/25/25 06/26/25 06/26/25 22:59 06:59 14:59 Intake Total 1240 / 2340 1050 / 3390 770 / 770 Output Total 700 / 1910 200 / 2110 Balance 540 / 430 850 / 1280 770 / 770 Weight last 48 hrs Weight 85.899 kg Weight 82.157 kg Weight 86.183 kg Physical Exam 2 Narrative: General Well-developed well-nourished obese female in no acute cardiopulmonary stress CV regular rate and rhythm Lungs bibasilar crackles right greater than left and completely clear with deep breath Right foot in a walking boot and gauze dressing which I did not remove. It is not soaked through or soiled Urinary Catheter Management: Borges: Cath Placed During This Visit: yes Reason for Continuing Indwelling Catheter: Acute Urinary Retention or Obstruction Urinary Catheter Date of Insertion: 06/25/25 Urinary Catheter Time of Insertion: 08:49 Data 06/26/25 00:53 06/26/25 00:53 Micro: Microbiology 06/25/25 12:30 Gram Stain - Final Toe - #1 Anaerobic Culture - Preliminary Wound Culture - Preliminary 06/25/25 09:45 Blood Culture - Preliminary Blood NEGATIVE TO DATE 06/25/25 05:59 Blood Culture - Preliminary Blood NEGATIVE TO DATE A&P Assessment and plan 1. Osteomyelitis: Continue vancomycin and Zosyn pending culture result. Remove Borges. Use bedside commode. Antibiotics are expected to be working and I suspect she needs additional surgery we will start PICC line due to poor IV access 2. Cellulitis of right foot: As above 3. CAD (coronary artery disease): Of continue aspirin daily and home plan 4. PVD (peripheral vascular disease): aspirin daily and home Plavix 5. Controlled type 2 diabetes mellitus with diabetic peripheral angiopathy without gangrene, with long-term current use of insulin: Increase Lantus to 50 units twice a day, sliding scale insulin and weight loss 1500-calorie ADA diet as we discussed. Patient is agreeable. Change sliding scale insulin to medium scale Plan: DVT prophylaxis with heparin with planned closure in 2 to 3 days. Hold Xarelto for now PDMP PDMP Reviewed: Not Reviewed Attestations 2 Medical Necessity Statement*: Patient remains hospitalized for osteomyelitis of the right hallux and cellulitis of the right lower extremity require greater than 2 midnights in the hospital Coding Level of Care Code Acute Code for [facility] Diagnoses Osteomyelitis M86.9 Cellulitis of right foot L03.115 CAD (coronary artery disease) I25.10 PVD (peripheral vascular disease) I73.9 Controlled type 2 diabetes mellitus with diabetic peripheral angiopathy without gangrene, with long-term current use of insulin E11.9; Z79.4
--- NOTE | 2025-06-26 13:29 | XR_ITS ---
WS: [id number] Exam: XR chest 1V portable [id number] Date/Time of Exam: 06/26/2025 1:29 PM Reason For Exam: Post PICC insertion No priors. Right-sided PICC line has been placed and ends in the lower third of the SVC in satisfactory position. The lungs are clear and fully inflated. Cardiomediastinal silhouette is unremarkable. Signs of previous CABG surgery. Bony structures are intact. XR/XR chest 1V portable [id number] IMPRESSION: 1. No acute cardiopulmonary finding. 2. Right-sided PICC line in satisfactory location.
--- NOTE | 2025-06-26 14:51 | PICC.NOTE ---
Double lumen PICC placed to right brachial vein. Referred to vascular access nurse for PICC placement due to osteomyelitis and need for antibiotics at discharge. Risks and benefits discussed and informed consent obtained from pt. Right arm assessed with right brachial vein measuring 3.8 mm, straight, and apparent best choice for placement. Using sterile technique and MST, right brachial vein accessed x 1 stick. Mid-arm circumference measured 10 cm from right AC 39 cm. Trimmed cath 41 cm with 0 cm external length noted. CXR shows tip in distal SVC, in good position for use per radiologist. Line secured with stat-lock. Insertion site covered with Biopatch and TSM. Report given to bedside nurse, BRIAN Velasquez.
[2025-06-26] MEDS: sodium chlor 0.9% + KCl 20 mEq 20 MEQ/1,000 ML BAG 100 MEQ IV (15:08)
[2025-06-26] MEDS: FUROsemide 10 mg/mL SDV 2mL 20 MG IVP (15:09)
[2025-06-26] MEDS: insulin glargine 100 units/1 mL 50 UNIT SUBCUT (16:50)
[2025-06-27] VITALS (8 sets, daily range): BP systolic 107–149; BP diastolic 52–79; PULSE 80–132; RESP 16–18; TEMP 36.3–36.8; O2SAT 89–95
[2025-06-27] MEDS: sulfamethoxazole-trimeth DS 160-800 mg Tablet 1 TAB PO ×3 (00:05→16:32)
[2025-06-27] MEDS: ondansetron hcl ODT 4 mg Tab PO (00:05)
[2025-06-27] MEDS: heparin 5,000 unit/mL INJ 1 mL 5000 UNIT SUBCUT ×3 (00:21→16:32)
--- NOTE | 2025-06-27 02:19 | ECG_ITS ---
[facility] Date: 2025-06-27 Pat Name: Malcolm Key Department: Room: 258 Gender: Female Podiatry Doctor: : 1940 Requested By: Yessica Chapman Order Number: [id number] Tracee MD: Rodrigo Nunes M.D. Measurements Intervals [place] Rate: 134 P: 0 NJ: 0 QRS: 45 QRSD: 93 T: 89 QT: 291 QTc: 436 Interpretive Statements ATRIAL FIBRILLATION WITH RAPID VENTRICULAR RESPONSE POSSIBLE ANTERIOR MYOCARDIAL INFARCTION , PROBABLY OLD [30 ms Q WAVE IN V3/V4, OR R < 0.2 mV IN V4] ST-T CHANGES, POSSIBLE ISCHEMIA ABNORMAL RHYTHM ECG Compared to ECG 04/15/2025 09:34:40 Myocardial infarct finding AND ST-T CHANGES now present Sinus rhythm no longer present First degree AV block no longer present Electronically Signed On 06-28-2025 20:58:52 CDT by Rodrigo Nunes M.D. [email or web address]
--- NOTE | 2025-06-27 06:46 | P.PN_ITS ---
Subjective 2 Subjective: Patient seen bedside this a.m., sleeping comfortably upon entering the room. States that she is tired of being in bed, does not feel ill, still has some nausea but is progressing her diet over the past 2 days. PICC line did not flush overnight, was switched to orals Bactrim, Levaquin in the interim. Vitals/I&O/Wt Last Vital Signs Temp 97.6 F 06/27/25 04:00 Pulse 126 H 06/27/25 04:00 Resp 16 06/27/25 04:00 BP 115/52 06/27/25 04:00 Pulse Ox 89 L 06/27/25 04:00 O2 Del Method Nasal Cannula 06/26/25 13:30 O2 Flow Rate 2 06/26/25 20:00 06/26/25 06/26/25 06/27/25 14:59 22:59 06:59 Intake Total 770 / 770 756.667 / 1526.667 Output Total 1450 / 1450 550 / 2000 Balance 770 / 770 -693.333 / 76.667 -550 / -473.333 Weight last 48 hrs Weight 191 lb 6.4 oz Weight 189 lb 6 oz Weight 181 lb 2 oz Physical Exam 2 Narrative: GENERAL: Patient is alert and oriented ?3 and in no acute distress. The following is a focused bilateral lower extremity exam. VASCULAR: Dorsalis pedis diminished bilaterally. Posterior tibial arteries diminished. Capillary refill time less than 5 seconds to the distal hallux bilaterally. Calf is supple and nontender proximally and distally. No pedal edema, decreased pedal hair growth noted. NEUROLOGICAL: Protective sensation intact 0/10 sites, tested with [place]ets[place] monofilament to bilateral feet. DERMATOLOGICAL: Dusky appearance of soft tissue at the level of the first ray amputation at the right foot, dorsal flap appears ischemic, residual erythema remains at the right foot streaking to the level of the ankle. MUSCULOSKELETAL: Status post partial first ray amputation right foot. Also history of right partial second ray amputation. No pain to palpation right foot secondary to neuropathy. Urinary Catheter Management: Borges: Cath Placed During This Visit: yes Reason for Continuing Indwelling Catheter: Acute Urinary Retention or Obstruction Urinary Catheter Date of Insertion: 06/25/25 Urinary Catheter Time of Insertion: 08:49 Data 06/26/25 00:53 06/26/25 00:53 Micro: Microbiology 06/25/25 12:30 Gram Stain - Final Toe - #1 Anaerobic Culture - Preliminary Wound Culture - Preliminary 06/25/25 09:45 Blood Culture - Preliminary Blood NEGATIVE TO DATE 06/25/25 05:59 Blood Culture - Preliminary Blood NEGATIVE TO DATE A&P Assessment and plan 1. Peripheral arterial disease: 2. Cellulitis of right foot: 3. Non-pressure chronic ulcer of other part of right foot with necrosis of bone: 4. Gangrene of right foot: Plan: A/P: Status post (s/p) R partial first ray amputation (06/25/25) for R foot gas gangrene and osteomyelitis. Cellulitis is slowly improving; however, p ersistent leukocytosis (27.5) and further necrosis at the plantar skin flap are noted. Patient is a candidate for Transmetatarsal Amputation (TMA) but requires additional soft tissue improvement. Foot viability remains highly guarded given extensive necrosis, DM, neuropathy, and PAD. Patient desires an aggressive trial of limb salvage. Plan: * Infection Control: Continue current empiric IV antibiotics to optimize soft tissue conditions. * Close Monitoring: Twice-daily saline wet-to-dry dressing changes to aggressively monitor soft tissue infection status and viability, focusing on the plantar flap. * Definitive Surgical Goal: Proceed with Transmetatarsal Amputation (TMA) once soft tissue flaps demonstrate improved viability and infection is controlled. * Risk Acknowledged: Patient understands the guarded prognosis and the substantial risk for requiring a higher level of amputation (e.g., Below-Knee Amputation) if the current infection cannot be controlled or soft tissues fail to support a TMA. PDMP PDMP Reviewed: Not Reviewed Attestations 2 Medical Necessity Statement*: Requires continued hospitalization, antibiotic therapy and further surgery. Coding Level of Care Code Acute Code for [facility] Diagnoses Peripheral arterial disease I73.9 Cellulitis of right foot L03.115 Non-pressure chronic ulcer of other part of right foot with necrosis of bone L97.514 Gangrene of right foot I96
[2025-06-27 07:59] LABS: Hematocrit 38.7 % (36-47); Hemoglobin 12.60 g/dL (11.27-16.99); Mean Corpuscular HGB Conc 32.6 g/dL (30-55); Mean Corpuscular Hemoglobin 30.5 pg (27-33); Mean Corpuscular Volume 93.7 fl (85-98); Nucleated Red Blood Cells % 0 %; Platelet Count 429 10^3/cmm (157-399); Red Blood Count 4.13 10^6/uL (3.85-5.65); White Blood Count 20.77 10^3/uL (3.29-11.43)
--- NOTE | 2025-06-27 08:14 | XR_ITS ---
WS: [id number] Exam: XR chest 1V portable [id number] Date/Time of Exam: 06/27/2025 8:52 AM Reason For Exam: assess PICC line tip - PICC not drawing or flushing Comparison 06/26/2025. Right-sided PICC line remains in good position ending in the lower one third of the SVC. The lungs are fully expanded. Minimal bibasilar infiltrates have developed since the last study. No pleural effusion. Normal cardiomediastinal silhouette. Bony structures are intact. Status post CABG surgery. XR/XR chest 1V portable [id number] IMPRESSION: 1. Right-sided PICC line remains in satisfactory position ending in the lower o ne third of the SVC. 2. Development of small bibasal infiltrates.
[2025-06-27 08:18] LABS: Anion Gap 18.5 (5-19); Blood Urea Nitrogen 15 mg/dL (8-23); Calcium 9.1 mg/dL (8.5-10.5); Carbon Dioxide 23 mmol/L (22-29); Chloride 98 mmol/L (98-107); Glucose 101 mg/dL (65-115); Osmolality Calculated 283 mOsm/kg (285-295); Potassium 3.5 mmol/L (3.5-5.1); Sodium 136 mmol/L (136-145)
--- NOTE | 2025-06-27 08:39 | PICC.NOTE ---
Notified that pt PICC line unable to flush. Assessed line. Dual lumen PICC with only one lumen flushing at this time. Flushing very difficult with no blood return noted. Recommendation made for CXR to determine PICC tip still in distal SVC. If line still correctly positioned, would recommend use of cathflo to re-establish patency of line.
[2025-06-27] MEDS: alteplase 1 mg/mL SDV 2 mL 2 MG INTRACATH (09:45)
--- NOTE | 2025-06-27 10:28 | PC.SOCIAL ---
IMM Update pg 2 of IMM Updated and reviewed w/ patient. Copy provided and copy dated, initialed and placed in chart.
--- NOTE | 2025-06-27 13:21 | P.PN_ITS ---
Subjective 2 Subjective: 85-year-old female with diabet es and osteomyelitis now status post right hallux amputation yesterday by Dr. Fonseca. Blood sugars improved to 62- 195 in the last 24 hours PICC line occluded overnight but flushed with tPA Vitals/I&O/Wt Last Vital Signs Temp 98.2 F 06/27/25 11:38 Pulse 110 H 06/27/25 11:38 Resp 17 06/27/25 11:38 BP 110/73 06/27/25 11:38 Pulse Ox 95 06/27/25 11:38 O2 Del Method Nasal Cannula 06/27/25 11:38 O2 Flow Rate 3 06/27/25 08:00 06/26/25 06/27/25 06/27/25 22:59 06:59 14:59 Intake Total 756.667 / 1526.667 240 / 240 Output Total 1450 / 1450 550 / 2000 Balance -693.333 / 76.667 -550 / -473.333 240 / 240 Weight last 48 hrs Weight 86.818 kg Weight 85.899 kg Weight 82.157 kg Physical Exam 2 Narrative: General Well-developed well-nourished obese female in no acute cardiopulmonary stress CV irregular rhythm modestly tachycardic Lungs bibasilar crackles right greater than left and completely clear with deep breath Right foot in gauze dressing which I did not remove. It is not soaked through or soiled Borges in place Urinary Catheter Management: Borges: Cath Placed During This Visit: yes Reason for Continuing Indwelling Catheter: Acute Urinary Retention or Obstruction Urinary Catheter Date of Insertion: 06/25/25 Urinary Catheter Time of Insertion: 08:49 Data 06/27/25 07:49 06/27/25 07:49 Micro: Microbiology 06/25/25 12:30 Gram Stain - Final Toe - #1 Anaerobic Culture - Preliminary Wound Culture - Preliminary 06/25/25 09:45 Blood Culture - Preliminary Blood NEGATIVE TO DATE A&P Assessment and plan 1. Osteomyelitis: PICC line in place and needs to be flushed continue vancomycin and Zosyn pending culture result. Remove Borges. Use bedside commode. Antibiotics are expected to be working and I suspect she needs additional surgery we will 2. Cellulitis of right foot: As above 3. CAD (coronary artery disease): continue aspirin daily and home antihypertensive regimen 4. PVD (peripheral vascular disease): aspirin daily and home Plavix 5. Controlled type 2 diabetes mellitus with diabetic peripheral angiopathy without gangrene, with long-term current use of insulin: Increase Lantus to 50 units twice a day, sliding scale insulin and weight loss 1500-calorie ADA diet as we discussed. Patient is agreeable. Change sliding scale insulin to medium scale Plan: DVT prophylaxis with heparin with planned closure in 2 to 3 days. Hold Xarelto for now PDMP PDMP Reviewed: Not Reviewed Attestations 2 Medical Necessity Statement*: Patient is hospitalized for IV antibiotics and will need additional surgery anticipated on Monday for a right transmetatarsal amputation Coding Level of Care Code Acute Code for [facility] Diagnoses Osteomyelitis M86.9 Cellulitis of right foot L03.115 CAD (coronary artery disease) I25.10 PVD (peripheral vascular disease) I73.9 Controlled type 2 diabetes mellitus with diabetic peripheral angiopathy without gangrene, with long-term current use of insulin E11.9; Z79.4
--- NOTE | 2025-06-27 13:30 | PICC.NOTE ---
CXR confirmed right arm PICC tip in distal SVC, unchanged from initial placement. Floor nurse flushed right PICC with tPA and dwell time of over an hour. No blood return. Vascular access nurse attempted flush and pulled back catheter 1 cm with no blood return noted. Pt repositioned and cath noted to flush, but still very difficult and no blood return. Suspect mechanical blockage due to pt anatomy. Dr. Bennett notified of findings. Orders received to remove PICC from right arm and attempt replacement in left arm. If unable to pass to SVC, midline to be placed. PICC removed to right arm. 41 cm removed with tip intact. Small kink noted at 10 cm monica. Single lumen PICC placed to left basilic vein. Referred to vascular access nurse for PICC placement due to anticipated need for home antibiotics at discharge for 4-6 weeks. Risks and benefits discussed and informed consent obtained. Left arm assessed with left basilic vein measuring 3.6 mm, straight, and apparent best choice for placement. Using sterile technique and MST, left basilic vein accessed x 1 stick. Mid-arm circumference measured 10 cm from left AC 37 cm. Trimmed cath 49 cm with 0 cm external length noted. CXR shows tip in distal SVC, in good position for use per radiologist. Line secured with stat-lock. Insertion site covered with Biopatch and TSM. Report given to bedside nurseMonica.
--- NOTE | 2025-06-27 13:46 | XR_ITS ---
WS: [id number] Exam: XR chest 1V portable [id number] Date/Time of Exam: 06/27/2025 1:46 PM Reason For Exam: Post PICC insertion to left arm Comparison with previous study on the same day at 8:57 a.m. A left-sided PICC line has been placed and ends in the lower one third of the SVC in good position. The lungs are fully expanded. Again noted are mild infiltrates in the lower lung zones. There may be mild vascular congestion. XR/XR chest 1V portable [id number] IMPRESSION: 1. Right-sided PICC line has been removed. New left-sided PICC line ends in the lower one third of the SVC in good position. 2. Mild bibasal infiltrates. There may be mild vascular congestion also.
[2025-06-27] MEDS: piperacillin-tazobactam 4.5 GM in sodium chloride 0.9% (plus) 50 ML IV ×2 (14:48→21:05)
[2025-06-27] MEDS: insulin glargine 100 units/1 mL 50 UNIT SUBCUT (17:41)
[2025-06-28] VITALS (8 sets, daily range): BP systolic 117–149; BP diastolic 65–79; PULSE 66–92; RESP 17–19; TEMP 36.5–36.8; O2SAT 90–92
[2025-06-28] MEDS: heparin 5,000 unit/mL INJ 1 mL 5000 UNIT SUBCUT ×3 (00:37→16:19)
[2025-06-28 05:17] LABS: Hematocrit 34.1 % (36-47); Hemoglobin 11.10 g/dL (11.27-16.99); Mean Corpuscular HGB Conc 32.6 g/dL (30-55); Mean Corpuscular Hemoglobin 29.6 pg (27-33); Mean Corpuscular Volume 90.9 fl (85-98); Nucleated Red Blood Cells % 0 %; Platelet Count 407 10^3/cmm (157-399); Red Blood Count 3.75 10^6/uL (3.85-5.65); White Blood Count 17.49 10^3/uL (3.29-11.43)
[2025-06-28] MEDS: insulin glargine 100 units/1 mL 50 UNIT SUBCUT ×2 (06:38→17:29)
[2025-06-28] MEDS: piperacillin-tazobactam 4.5 GM in sodium chloride 0.9% (plus) 50 ML IV ×3 (06:39→21:49)
[2025-06-28 09:08] LABS: Albumin Level 2.5 g/dL (3.5-5.2); Alkaline Phosphatase 128 U/L (35-105); Blood Urea Nitrogen 16 mg/dL (8-23); Calcium 8.8 mg/dL (8.5-10.5); Carbon Dioxide 22 mmol/L (22-29); Chloride 98 mmol/L (98-107); Globulin 3.5 g/dL (1.3-4.6); Glucose 168 mg/dL (65-115); Osmolality Calculated 273 mOsm/kg (285-295); Sodium 129 mmol/L (136-145); Total Protein 6.0 g/dL (6.6-8.7)
[2025-06-28 09:13] LABS: Alanine Aminotransferase 43 U/L (0-33); Anion Gap 14.8 (5-19); Aspartate Amino Transferase 61 U/L (0-32); Potassium 4.8 mmol/L (3.5-5.1)
--- NOTE | 2025-06-28 10:50 | P.PN_ITS ---
Subjective 2 Subjective: Patient seen bedside this morning, awake and in good spirits, her daughter is visiting from [place]. Making efforts to have more nutritious intake. Denies right foot pain, fevers or chills. Vitals/I&O/Wt Last Vital Signs Temp 97.8 F 06/28/25 07:39 Pulse 87 06/28/25 07:39 Resp 18 06/28/25 07:39 BP 149/65 06/28/25 07:39 Pulse Ox 90 06/28/25 07:39 O2 Del Method Nasal Cannula 06/28/25 07:39 O2 Flow Rate 3.5 06/28/25 08:00 06/27/25 06/28/25 06/28/25 22:59 06:59 14:59 Intake Total 360.00 / 720.00 300 / 1020.00 240 / 240 Output Total 400 / 400 150 / 550 Balance -40.00 / 320.00 150 / 470.00 240 / 240 Weight last 48 hrs Weight 189 lb 6.4 oz Weight 191 lb 6.4 oz Physical Exam 2 Narrative: GENERAL: Patient is alert and oriented ?3 and in no acute distress. The following is a focused bilateral lower extremity exam. VASCULAR: Dorsalis pedis diminished bilaterally. Posterior tibial arteries diminished. Capillary refill time less than 5 seconds to the distal hallux bilaterally. Calf is supple and nontender proximally and distally. No pedal edema, decreased pedal hair growth noted. NEUROLOGICAL: Protective sensation intact 0/10 sites, tested with [place] monofilament to bilateral feet. DERMATOLOGICAL: Dusky appearance of soft tissue at the level of the first ray amputation at the right foot, dorsal flap appears ischemic, residual erythema remains at the right foot streaking to the level of the ankle. MUSCULOSKELETAL: Status post partial first ray amputation right foot. Also history of right partial second ray amputation. No pain to palpation right foot secondary to neuropathy. Urinary Catheter Management: Borges: Cath Placed During This Visit: yes Reason for Continuing Indwelling Catheter: Acute Urinary Retention or Obstruction Urinary Catheter Date of Insertion: 06/25/25 Urinary Catheter Time of Insertion: 08:49 Data 06/28/25 05:08 06/28/25 08:29 Micro: Microbiology 06/25/25 12:30 Gram Stain - Final Toe - #1 Anaerobic Culture - Preliminary Wound Culture - Preliminary A&P Assessment and plan 1. Peripheral arterial disease: 2. Cellulitis of right foot: 3. Non-pressure chronic ulcer of other part of right foot with necrosis of bone: 4. Gangrene of right foot: Plan: Plan: * Infection Control: * Continue current empiric IV antibiotic regimen to optimize soft tissue conditions. * Implement Twice-daily saline wet-to-dry dressing changes to aggressively monitor soft tissue infection status and viability, focusing on the plantar flap. * Surgical Strategy & Risk Acknowledged (CRITICAL): * Continue monitoring for definitive demarcation of viability of the right foot. * Definitive Surgical Goal: We are planning to proceed with a Transmetatarsal Amputation (TMA), tentatively scheduled for June 30, pending sufficient soft tissue improvement and infection control. This delay is necessary to maximize viable tissue preservation. * Risk Acknowledged: Patient and team understand the guarded prognosis and the substantial risk for requiring a higher level of amputation (e.g., Below-Knee Amputation (BKA)) if the current infection cannot be controlled, soft tissue failure occurs, or TMA margins prove non-viable. * Nutritional Support (CRITICAL): * Consultation: Place a stat consult for a Registered Dietitian. * Goal: Nutritional emphasis must be placed on a strict Diabetic Diet to optimize glycemic control, which is paramount for infection management and wound healing. * Wound Healing: Patient requires aggressive increased protein intake to support healing, tissue regeneration, and immune function. PDMP PDMP Reviewed: Not Reviewed Attestations 2 Medical Necessity Statement*: Requires continued hospitalization, antibiotic therapy and further surgery. Coding Level of Care Code Acute Code for [facility] Diagnoses Peripheral arterial disease I73.9 Cellulitis of right foot L03.115 Non-pressure chronic ulcer of other part of right foot with necrosis of bone L97.514 Gangrene of right foot I96
--- NOTE | 2025-06-28 15:17 | P.PN_ITS ---
Subjective 2 Subjective: 85-year-old female with poorly controlled diabetes and osteomyelitis admits that she has not had a bowel movement since admission to this hospital she states her appetite is poor patient has been on and noted to have hyponatremia. We are still awaiting surgery trying to calm her right foot infection down Vitals/I&O/Wt Last Vital Signs Temp 97.7 F 06/28/25 11:30 Pulse 66 06/28/25 11:30 Resp 17 06/28/25 11:30 BP 117/78 06/28/25 11:30 Pulse Ox 92 06/28/25 11:30 O2 Del Method Nasal Cannula 06/28/25 11:30 O2 Flow Rate 3.5 06/28/25 08:00 06/28/25 06/28/25 06/28/25 06:59 14:59 22:59 Intake Total 300 / 1020.00 410 / 410 Output Total 150 / 550 Balance 150 / 470.00 410 / 410 Weight last 48 hrs Weight 85.91 kg Weight 86.818 kg Physical Exam 2 Narrative: General Well-developed well-nourished obese female in no acute cardiopulmonary stress CV irregular rhythm Lungs clear to auscultation Abdomen positive bowel tones soft nontender Right foot in gauze dressing which I did not remove. It is not soaked through or soiled Borges in place Urinary Catheter Management: Borges: Cath Placed During This Visit: yes Reason for Continuing Indwelling Catheter: Acute Urinary Retention or Obstruction Urinary Catheter Date of Insertion: 06/25/25 Urinary Catheter Time of Insertion: 08:49 Data 06/28/25 05:08 06/28/25 08:29 Micro: Microbiology 06/25/25 12:30 Gram Stain - Final Toe - #1 Anaerobic Culture - Preliminary Wound Culture - Preliminary A&P Assessment and plan 1. Osteomyelitis: Continue with vancomycin and Zosyn pending MRSA screen. If MRSA negative will stop the Vanco 2. Cellulitis of right foot: As above 3. CAD (coronary artery disease): continue aspirin daily and home antihypertensive regimen 4. PVD (peripheral vascular disease): aspirin daily and home Plavix 5. Controlled type 2 diabetes mellitus with diabetic peripheral angiopathy without gangrene, with long-term current use of insulin: Increase Lantus to 50 units twice a day, sliding scale insulin and weight loss 1500-calorie ADA diet as we discussed. Patient is agreeable. Change sliding scale insulin to medium scale 6. Constipation: Start docusate, MiraLAX and lactulose. Lactulose 10 g every 6 hours till BM Plan: DVT prophylaxis with heparin with planned closure in 2 to 3 days. Hold Xarelto for now PDMP PDMP Reviewed: Not Reviewed Attestations 2 Medical Necessity Statement*: Patient elaine hospitalized for IV antibiotics and follow-up amputation surgery anticipated midfoot Coding Level of Care Code 46961 Diagnoses Osteomyelitis M86.9 Cellulitis of right foot L03.115 CAD (coronary artery disease) I25.10 PVD (peripheral vascular disease) I73.9 Controlled type 2 diabetes mellitus with diabetic peripheral angiopathy without gangrene, with long-term current use of insulin E11.9; Z79.4 Constipation K59.00 Time Spent (min) 35
[2025-06-28 16:14] LABS: Thyroid Stimulating Hormone 3.76 uIU/mL (0.27-4.20)
[2025-06-28] MEDS: polyethylene glycol 3350 Pkt 17 gm PO (16:19)
[2025-06-28] MEDS: lactulose oral liq 20 gm/30 mL UDC 10 GM PO ×2 (16:19→21:48)
[2025-06-28] MEDS: lactobacillus 1 Tablet 1 TAB PO (16:20)
[2025-06-28 17:58] LABS: MRSA PCR OZH (swab) NOT DETECTED (Not Detecte)
[2025-06-29] VITALS (10 sets, daily range): BP systolic 116–145; BP diastolic 66–85; PULSE 60–85; RESP 16–19; TEMP 36.3–36.9; O2SAT 90–94
[2025-06-29] MEDS: heparin 5,000 unit/mL INJ 1 mL 5000 UNIT SUBCUT ×2 (02:55→10:31)
[2025-06-29 03:42] LABS: Hematocrit 33.1 % (36-47); Hemoglobin 10.70 g/dL (11.27-16.99); Mean Corpuscular HGB Conc 32.3 g/dL (30-55); Mean Corpuscular Hemoglobin 29.1 pg (27-33); Mean Corpuscular Volume 89.9 fl (85-98); Nucleated Red Blood Cells % 0 %; Platelet Count 390 10^3/cmm (157-399); Red Blood Count 3.68 10^6/uL (3.85-5.65); White Blood Count 14.86 10^3/uL (3.29-11.43)
[2025-06-29 03:55] LABS: Blood Urea Nitrogen 19 mg/dL (8-23); Calcium 8.6 mg/dL (8.5-10.5); Carbon Dioxide 24 mmol/L (22-29); Chloride 98 mmol/L (98-107); Glucose 112 mg/dL (65-115); Osmolality Calculated 277 mOsm/kg (285-295); Sodium 132 mmol/L (136-145)
[2025-06-29 04:01] LABS: Anion Gap 14.7 (5-19); Potassium 4.7 mmol/L (3.5-5.1)
--- NOTE | 2025-06-29 04:23 | XRR_ITS ---
PROCEDURE INFORMATION: Exam: XR Chest Exam date and time: 06/29/2025 4:35 AM Age: 85 years old Clinical indication: Shortness of breath; Prior surgery; Surgery date: 6+ months; Surgery type: Cabg; Worsening SOB with hypoxia; Additional info: SOB, increased o2 demands TECHNIQUE: Imaging protocol: Radiologic exam of the chest. Views: 1 view. COMPARISON: CR XR chest 1V portable [id number] 06/27/2025 2:12 PM FINDINGS: Tubes, catheters and devices: PICC line terminates in the SVC. Lungs: Hazy density at each lung base, atelectasis versus infiltrate. Pleural spaces: Unremarkable. No pleural effusion. No pneumothorax. Heart/Mediastinum: See Vasculature finding. Vasculature: Mild cardiomegaly and uncoiling of the thoracic aorta. Bones/joints: Status post median sternotomy. XR/XR chest 1V portable [id number] IMPRESSION: No significant change.
[2025-06-29] MEDS: lactobacillus 1 Tablet 1 TAB PO ×2 (05:20→16:28)
[2025-06-29] MEDS: insulin glargine 100 units/1 mL 50 UNIT SUBCUT (05:20)
[2025-06-29] MEDS: piperacillin-tazobactam 4.5 GM in sodium chloride 0.9% (plus) 50 ML IV ×3 (05:21→23:01)
--- NOTE | 2025-06-29 08:43 | P.PN_ITS ---
Subjective 2 Subjective: Patient seen bedside this a.m. Endorses right foot pain. Anticipating surgery tomorrow. Accompanied by her daughter. Vitals/I&O/Wt Last Vital Signs Temp 97.7 F 06/29/25 08:16 Pulse 85 06/29/25 08:16 Resp 17 06/29/25 08:16 BP 132/85 06/29/25 08:16 Pulse Ox 94 06/29/25 08:16 O2 Del Method Oxymask 06/29/25 08:16 O2 Flow Rate 5 06/29/25 07:48 06/28/25 06/29/25 06/29/25 22:59 05:59 14:59 Intake Total 420 / 830 300 / 880 Output Total 750 / 750 200 / 950 Balance -330 / 80 100 / -70 Weight last 48 hrs Weight 192 lb Weight 189 lb 6.4 oz Physical Exam 2 Narrative: GENERAL: Patient is alert and oriented ?3 and in no acute distress. The following is a focused bilateral lower extremity exam. VASCULAR: Dorsalis pedis diminished bilaterally. Posterior tibial arteries diminished. Capillary refill time less than 5 seconds to the distal hallux bilaterally. Calf is supple and nontender proximally and distally. No pedal edema, decreased pedal hair growth noted. NEUROLOGICAL: Protective sensation intact 0/10 sites, tested with [place] monofilament to bilateral feet. DERMATOLOGICAL: Dusky appearance of soft tissue at the level of the first ray amputation at the right foot, dorsal flap appears ischemic, residual erythema remains at the right foot streaking to the level of the ankle. MUSCULOSKELETAL: Status post partial first ray amputation right foot. Also history of right partial second ray amputation. No pain to palpation right foot secondary to neuropathy. Urinary Catheter Management: Borges: Cath Placed During This Visit: yes Reason for Continuing Indwelling Catheter: Acute Urinary Retention or Obstruction Urinary Catheter Date of Insertion: 06/25/25 Urinary Catheter Time of Insertion: 08:49 Data 06/29/25 02:53 06/29/25 02:53 Micro: Microbiology 06/25/25 12:30 Gram Stain - Final Toe - #1 Anaerobic Culture - Preliminary Wound Culture - Final A&P Assessment and plan 1. Peripheral arterial disease: 2. Cellulitis of right foot: 3. Non-pressure chronic ulcer of other part of right foot with necrosis of bone: Ms. Key, an 85-year-old with advanced comorbidities of Diabetes Mellitus and Peripheral Arterial Disease (PAD), underwent a Transmetatarsal Amputation (TMA) of the right foot on [Date of Surgery, assumed June 30, 2025] due to progressive gangrene. Successful healing is highly guarded due to her systemic risk factors. Functional Justification: Strict Gav-Rfqpxv-Vcsdczc Status The patient?s current status dictates that she is a high risk for wound failure if discharged to a lower level of care. * Mandatory Restriction: Post-TMA, the patient is under a strict, absolute Nhh-Nvqfhv-Rkxuksb (NWB) mandate on the right lower extremity to allow for crucial soft tissue and bony healing across the amputation site. * Anticipated Duration: This NWB status is anticipated to last a minimum of six (6) weeks post-operatively, projected until approximately August 11, 2025. * Risk of Non-Compliance (Limb & Life Threatening): Any premature or accidental weight-bearing will directly cause breakdown of the surgical flap and dehiscence, leading to: * Surgical Failure: Requiring immediate reoperation. * Infection and Sepsis: Introduction of bacteria into the deep tissue, risking a systemic, life-threatening infection. * Higher Amputation: Loss of the limb salvage attempt, mandating a higher- level amputation such as a Below-Knee Amputation (BKA). * SNF Necessity: Due to her age, comorbidities, and the functional demands of maintaining NWB status (especially for transfers, toileting, and self-care), the patient requires 24-hour jail supervision and physical assistance that cannot be safely replicated in a home setting. Medical Justification: Complex Skilled Management Continued SNF placement is medically necessary for stabilization and healing, requiring multiple skilled services: * Wound Care and Monitoring: The TMA site requires complex, skilled daily dressing changes and aggressive monitoring by licensed nursing staff to detect the earliest signs of flap necrosis, infection, or dehiscence?a critical necessity given the patient's history of gangrene and PAD. * Diabetic and Glycemic Control: Tightly managing the patient?s blood glucose levels is paramount for wound healing. Uncontrolled diabetes is the leading cause of surgical failure in this population. The SNF is required for daily blood glucose monitoring, insulin adjustments, and prompt response to hyperglycemic or hypoglycemic crises by jail staff. * Nutritional Therapy: Successful healing of a large amputation site requires a systemic response. The patient requires daily monitoring by a registered nurse and/or consultation with a dietitian to ensure compliance with a Diabetic Diet and, crucially, a regimen of increased protein intake to fuel tissue regeneration and immunologic function. Conclusion and Authorization Request The transition to a lower level of care at this stage would constitute an unacceptable threat to the patient's life and limb, as it would severely compromise the outcome of her recent amputation and the integrity of her care plan. 4. Gangrene of right foot: Plan: Patient wishes to avoid below-knee amputation if at all possible. Recommended right transmetatarsal amputation and right Achilles lengthening, guarded as to healing potential with underlying PAD, diabetes and low albumin indicating poor nutritional status. Patient like to proceed with right transmetatarsal amputation for more definitive source control of infection and more functional amputation level. - N.p.o. at midnight - Please hold anticoagulants in preparation for right transmetatarsal amputation tomorrow 06/30/2025 scheduled at noon - Recommend dietitian consultation - Patient agreeable for transfer to jail after this hospitalization, prefers alf in [place] if possible. PDMP PDMP Reviewed: Not Reviewed Attestations 2 Medical Necessity Statement*: Requires continued hospitalization, antibiotic therapy and further surgery. Coding Level of Care Code Acute Code for [facility] Diagnoses Peripheral arterial disease I73.9 Cellulitis of right foot L03.115 Non-pressure chronic ulcer of other part of right foot with necrosis of bone L97.514 Gangrene of right foot I96
[2025-06-29] MEDS: HYDROcodone-acetaminophen 5-325 mg Tablet 1 TAB PO (10:32)
--- NOTE | 2025-06-29 16:11 | P.PN_ITS ---
Subjective 2 Subjective: 85-year-old female with poorly controlled diabetes and osteomyelitis had bowel movements with lactulose overnight. She has not been active and developed atelectasis requiring increased oxygen and oxy mask new since 06/25/2025 [employer]'s report that she is stooling in bed sometimes bedpan but is not using the bedside commode nurse reports patient is reluctant for activity. She declined to have her Borges removed the other day. I asked her to be more active and she tells me I am having surgery tomorrow do not worry about it Counseled patient that as her physician need to help her not develop atelectasis and bedsores and she needs to be more active try to use the bed side commode as and up in the chair and if she could do that. She states I can if I have to . I asked the patient if she is angry or depressed but she denies the same Vitals/I&O/Wt Last Vital Signs Temp 97.5 F L 06/29/25 12:01 Pulse 74 06/29/25 12:01 Resp 17 06/29/25 12:01 BP 116/66 06/29/25 12:01 Pulse Ox 94 06/29/25 12:01 O2 Del Method Nasal Cannula 06/29/25 12:01 O2 Flow Rate 5 06/29/25 07:48 06/29/25 06/29/25 06/29/25 05:59 14:59 22:59 Intake Total 300 / 880 530 / 530 Output Total 200 / 950 200 / 200 Balance 100 / -70 330 / 330 Weight last 48 hrs Weight 87.09 kg Weight 85.91 kg Physical Exam 2 Narrative: General Well-developed well-nourished obese female in no acute cardiopulmonary stress. Eye contact is somewhat angry or evasive CV irregular rhythm Lungs clear to auscultation Abdomen positive bowel tones soft nontender Right foot in gauze dressing which I did not remove. It is not soaked through or soiled Borges in place Urinary Catheter Management: Borges: Cath Placed During This Visit: yes Reason for Continuing Indwelling Catheter: Acute Urinary Retention or Obstruction Urinary Catheter Date of Insertion: 06/25/25 Urinary Catheter Time of Insertion: 08:49 Data 06/29/25 02:53 06/29/25 02:53 Micro: Microbiology 06/25/25 12:30 Gram Stain - Final Toe - #1 Anaerobic Culture - Preliminary Wound Culture - Final A&P Assessment and plan 1. Osteomyelitis: Continue with vancomycin and Zosyn pending MRSA screen. MRSA screen is negative surgery and Gram stain pending tomorrow consider discontinue vancomycin 2. Cellulitis of right foot: As above 3. CAD (coronary artery disease): continue aspirin daily and home antihypertensive regimen 4. PVD (peripheral vascular disease): aspirin daily and home Plavix 5. Controlled type 2 diabetes mellitus with diabetic peripheral angiopathy without gangrene, with long-term current use of insulin: Increase Lantus to 50 units twice a day, sliding scale insulin and weight loss 1500-calorie ADA diet as we discussed. Patient is agreeable. Medium scale sliding scale insulin Blood sugars running from 87-203 which is a big improvement from earlier in the hospital 6. Constipation: Start docusate, MiraLAX and lactulose. Patient had 2 bowel movement 7. Atelectasis: Continue incentive spirometer patient to be up in a chair twice a day for 2-hour Plan: DVT prophylaxis with heparin with planned closure in 2 to 3 days. Hold Xarelto for now PDMP PDMP Reviewed: Not Reviewed Attestations 2 Medical Necessity Statement*: Patient remains hospitalized for IV antibiotics and anticipated midfoot amputation Coding Level of Care Code 58569 Diagnoses Osteomyelitis M86.9 Cellulitis of right foot L03.115 CAD (coronary artery disease) I25.10 PVD (peripheral vascular disease) I73.9 Controlled type 2 diabetes mellitus with diabetic peripheral angiopathy without gangrene, with long-term current use of insulin E11.9; Z79.4 Constipation K59.00 Atelectasis J98.11 Time Spent (min) 25
[2025-06-29] MEDS: HYDROcodone-acetaminophen 7.5-325 mg Tablet 1 TAB PO ×2 (16:36→20:56)
[2025-06-30] VITALS (18 sets, daily range): BP systolic 104–164; BP diastolic 55–91; PULSE 62–98; RESP 14–22; TEMP 36.1–36.7; O2SAT 91–100; BMI 34.1
[2025-06-30] MEDS: HYDROcodone-acetaminophen 7.5-325 mg Tablet 1 TAB PO ×2 (02:04→14:10)
[2025-06-30] MEDS: lactobacillus 1 Tablet 1 TAB PO ×2 (05:32→17:37)
[2025-06-30] MEDS: piperacillin-tazobactam 4.5 GM in sodium chloride 0.9% (plus) 50 ML IV ×3 (05:33→21:34)
--- NOTE | 2025-06-30 08:57 | PC.SOCIAL ---
IMM Update Pg. 2 of IMM updated and reviewed with patient, who verbalized understanding. Copy provided at bedside.
--- NOTE | 2025-06-30 10:19 | ANES.PREANE2 ---
Pre-Anesthetic Assessment Height/Weight: Height 5 ft 4 in Weight 198 lb 14.4 oz Temp Pulse Resp BP Pulse Ox O2 Del Method O2 Flow Rate 97.7 F 77 20 H 140/76 95 Oxymask 5 06/30/25 07:26 06/30/25 08:34 06/30/25 08:34 06/30/25 07:26 06/30/25 08:34 06/30/25 08:34 06/30/25 08:34 Preop Diagnosis: Gas gangrene right foot Operation Date: 06/25/25 12:10 Proposed Procedures p Incision And Drainage(Right) - Von Fonseca DPM s VS partial ray resection(Right) - Von Fonseca DPM Operation Date: 06/30/25 12:05 Proposed Procedures p Amputation Foot Transmetatarsal Amputation(Right) - Von Fonseca DPM Was Beta Nati taken within 24 hours: N/A Was Clonidine taken within 24 hours: N/A Last intake: Intake Last Liquid Date 06/30/25 Last Liquid Time 00:00 Last Solid Date 06/30/25 Last Solid Time 00:00 Social No alcohol and No tobacco Exam alert, oriented x 3, clear to auscultation bilaterally and regular rate & rhythm Airway Submandibular: within normal limits Cervical ROM: within normal limits Mallampati: Class III Dentition: chipped Anesthetic Plan ASA status: 4 Anesthesia: MAC Other: No prior issues with anesthesia, patient had surgery on 06/24 with us under [place] and did well However patient now presents on 6 L O2 in preop of which they are contributing to atelectasis NPO since yesterday evening History of hypertension on amlodipine, losartan, spironolactone and metoprolol. Preop BP 140/76 IDDM TARIK Labs reviewed from 06/29/2025, WBC 14.8, hemoglobin 10.7, NA 132, K+ 4.7 EKG performed on 06/27/2025 showing A-fib with RVR Spoke with surgeon and plan is for MAC anesthesia with nerve block per manager new product Medications/Allergies Home Medications ?Medication ?Instructions ?Recorded ?Confirmed ?Last Taken ?Type famotidine 20 mg tablet 20 mg PO DAILY 08/16/23 06/25/25 06/24/25 History Diabetic shoes with 3 sets of #1 ea 10/23/24 06/25/25 Unknown Rx insoles melatonin 10 mg capsule 10 mg PO BEDTIME 02/03/25 06/25/25 06/24/25 History tramadol 50 mg tablet 50 mg PO TID PRN pain #90 tabs 03/18/25 06/25/25 06/11/25 21:00 Rx amlodipine 5 mg tablet 5 mg PO BID #90 tabs 04/24/25 06/25/25 06/24/25 Rx clopidogrel 75 mg tablet (Plavix) 75 mg PO DAILY #90 tabs 04/24/25 06/25/25 06/24/25 Rx ezetimibe 10 mg tablet 10 mg PO DAILY #90 tabs 04/24/25 06/25/25 06/24/25 Rx furosemide 40 mg tablet 40 mg PO DAILY #90 tabs 04/24/25 06/25/25 06/24/25 Rx hydralazine 100 mg tablet 100 mg PO TID #270 tabs 04/24/25 06/25/25 06/24/25 Rx losartan 50 mg tablet 50 mg PO BID #180 tabs 04/24/25 06/25/25 06/24/25 Rx metoprolol tartrate 100 mg tablet 100 mg PO BID #180 tabs 04/24/25 06/25/25 06/24/25 Rx nitroglycerin 0.4 mg sublingual 0.4 mg sublingual Q5M PRN chest 04/24/25 06/25/25 Unknown Rx tablet pain #30 tabs spironolactone 50 mg tablet 50 mg PO DAILY #90 tabs 04/24/25 06/25/25 06/24/25 Rx atorvastatin 80 mg tablet (Lipitor) 80 mg PO DAILY #90 tabs 06/10/25 06/25/25 06/24/25 Rx glipizide 10 mg tablet, extended 10 mg PO BID #180 tabs 06/10/25 06/25/25 06/24/25 Rx release 24 hr insulin glargine 100 unit/mL (3 40 unit (0.4 mL) SUBCUT BID 90 06/12/25 06/25/25 06/24/25 Rx mL) subcutaneous pen (Lantus days #72 mL Solostar U-100 Insulin) rivaroxaban 2.5 mg tablet (Xarelto) 2.5 mg PO BID #180 tabs 06/13/25 06/25/25 06/24/25 Rx Allergies Allergy/AdvReac Type Severity Reaction Status Date / Time codeine AdvReac Mild unknown Verified 06/16/25 09:45 lisinopril AdvReac Mild ADR-Cough Verified 06/16/25 09:45 morphine AdvReac Mild unknown Verified 06/16/25 09:45 Penicillins AdvReac Mild unknown Verified 06/16/25 09:45 Current Medications Generic Name Dose Route Start Last Admin Trade Name Freq PRN Reason Stop Dose Admin Acetaminophen 650 mg 06/25/25 06:23 06/29/25 05:26 Acetaminophen 325 Mg Tablet PO 650 mg Q6H PRN Administration Mild/Mod Pain Or Temp >/= 101 Hydrocodone Bitart/Acetaminophen 1 tab 06/29/25 14:58 06/30/25 02:04 Hydrocodone-Acetaminophen 7.5-325 Mg Tablet PO 1 tab Q4H PRN Administration MODERATE PAIN Aspirin 81 mg 06/25/25 17:00 06/30/25 05:33 Aspirin 81 Mg Ec Tablet PO 81 mg DAILY MARY Administration Atorvastatin Calcium 80 mg 06/26/25 05:00 06/30/25 05:32 Atorvastatin 40 Mg Tablet PO 80 mg DAILY MARY Administration Clopidogrel Bisulfate 75 mg 06/25/25 17:01 06/30/25 05:33 Clopidogrel 75 Mg Tablet PO 75 mg DAILY MARY Administration Docusate Sodium 200 mg 06/28/25 17:00 06/30/25 05:32 Docusate Sodium 100 Mg Capsule PO 200 mg BID MARY Administration Ezetimibe 10 mg 06/26/25 05:00 06/30/25 05:32 Ezetimibe 10 Mg Tablet PO 10 mg DAILY MARY Administration Famotidine 20 mg 06/26/25 05:00 06/30/25 05:32 Famotidine 20 Mg Tablet PO 20 mg BID MARY Administration Heparin Sodium (Porcine) 5,000 unit 06/25/25 17:15 06/29/25 16:29 Heparin 5,000 Unit/Ml Inj 1 Ml SUBCUT Not Given On Hold: 06/29/25 17:25 Q8H MARY Resume: 06/30/25 17:00 Dextrose 125 mls @ 750 mls/hr 06/25/25 06:23 06/30/25 09:38 D10w IV Infused PRN PRN Infusion Adult Acute Hypoglycemia Nursing Protocol Protocol Piperacillin Sod/Tazobactam 50 mls @ 12.5 mls/hr 06/25/25 14:00 06/30/25 06:39 Sod 4.5 gm/ Sodium Chloride IV 0 mls/hr Q8H MARY Infusion Protocol Vancomycin HCl 1,000 mg/ 250 mls @ 250 mls/hr 06/29/25 15:00 06/30/25 05:33 Sodium Chloride IV Infused Q12H MARY Infusion Insulin Glargine 50 unit 06/26/25 17:00 06/30/25 06:28 Insulin Glargine 100 Units/1 Ml SUBCUT Not Given BID MARY Insulin Human Lispro 0 unit 06/26/25 18:00 06/30/25 07:35 Insulin Lispro 100 Unit/1 Ml SUBCUT Not Given WM&BEDTIME MARY Protocol Lactobacillus Acidophilus 1 tab 06/28/25 17:00 06/30/25 05:32 Lactobacillus 1 Tablet PO 1 tab BID MARY Administration Losartan Potassium 50 mg 06/28/25 05:00 06/30/25 05:32 Losartan 50 Mg Tablet PO 50 mg DAILY MARY Administration Metoprolol Tartrate 50 mg 06/27/25 13:31 06/30/25 09:44 Metoprolol Tartrate 50 Mg Tablet PO 50 mg BID@0900,2100 MARY Administration Ondansetron HCl 4 mg 06/25/25 18:13 06/26/25 00:27 Ondansetron 2 Mg/Ml Sdv 2 Ml IVP 4 mg Q6H PRN Administration NAUSEA AND VOMITING Ondansetron HCl 4 mg 06/26/25 23:33 06/27/25 00:05 Ondansetron Hcl Odt 4 Mg Tab PO 4 mg Q4H PRN Administration NAUSEA AND VOMITING Polyethylene Glycol 17 gm 06/28/25 15:17 06/30/25 05:33 Polyethylene Glycol 3350 Pkt 17 Gm PO Not Given DAILY [facility] PFSH Anesthesia Medical History (Updated 06/29/25 @ 16:17 by Mason Bennett MD) Osteomyelitis Osteoporosis Atheroscler of [place] artery of both legs with intermit claudication Aortic valve sclerosis TARIK (obstructive sleep apnea) Diastolic dysfunction Chronic right hip pain Osteoarthritis Mixed hyperlipidemia Controlled type 2 diabetes mellitus, with long-term current use of insulin GERD (gastroesophageal reflux disease) Essential hypertension Surgical History History of bilateral hip hemiarthroplasty Left History of cardiac cath Prox LAD, mid RCA and CX 09/17 History of atherectomy with stenting - L SFA and pop artery 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 [facility] - four vessel History of amputation of toe History of hip surgery bilateral History of surgery on arm Family History Other Cancer Diabetes Social History Smoking and tobacco/nicotine status: former use of tobacco/nicotine Alcohol intake: never Substance/Drug Use: never Data Anesthesia 06/29/25 02:53 06/29/25 02:53 Short CBC 06/29/25 Range/Units 02:53 WBC 14.86 H (3.29-11.43) 10^3/uL Hgb 10.70 L (11.27-16.99) g/dL Hct 33.1 L (36-47) % MCV 89.9 (85-98) fl Plt Count 390 (157-399) 10^3/cmm Neut % (Auto) 76.5 % Neut # (Auto) 11.36 H (1.8-7.7) 10^3/uL BMP 06/29/25 02:53 Sodium 132 L Potassium 4.7 Chloride 98 Carbon Dioxide 24 BUN 19 Creatinine 0.7 Glucose 112 Calcium 8.6 Microbiology 06/25/25 09:45 Blood Culture - Final Blood NO GROWTH AFTER 5 DAYS 06/25/25 12:30 Gram Stain - Final Toe - #1 Anaerobic Culture - Preliminary Wound Culture - Final 06/25/25 05:59 Blood Culture - Final Blood NO GROWTH AFTER 5 DAYS
--- NOTE | 2025-06-30 11:02 | PC.NURSE ---
Patient to Surgery at this time.
--- NOTE | 2025-06-30 12:03 | W.PM.OPSUD ---
Surgery/Procedure H&P Update DATE OF PROCEDURE: June 30, 2025 DATE H&P PERFORMED: 06/25/25 H&P UPDATE INFORMATION: I have reviewed H&P completed within last 30 days, I have examined patient prior to procedure, No changes to prior documentation, H&P is in [facility] EMR on date indicated and Risks and benefits of the procedure reviewed PREOP DIAGNOSIS: Gas gangrene right foot PLANNED PROCEDURE: Operation Date: 06/25/25 12:10 Proposed Procedures p Incision And Drainage(Right) - Von Fonseca DPM s VS partial ray resection(Right) - Von Fonseca DPM Operation Date: 06/30/25 12:05 Proposed Procedures p Amputation Foot Transmetatarsal Amputation(Right) - Von Fonseca DPM
--- NOTE | 2025-06-30 12:23 | P.PN_ITS ---
Subjective 2 Subjective: Hospital course, labs appreciated. Patient seen postoperatively. Underwent Achilles extension and flap closure today. Postoperatively requiring 6 L of oxygen supplementation. Otherwise hemodynamically stable. Vitals/I&O/Wt Last Vital Signs Temp 97.9 F 07/01/25 11:41 Pulse 98 07/01/25 11:41 Resp 20 H 07/01/25 11:41 BP 133/76 07/01/25 11:41 Pulse Ox 98 07/01/25 11:41 O2 Del Method Nasal Cannula 07/01/25 11:41 O2 Flow Rate 3 07/01/25 08:58 06/30/25 07/01/25 07/01/25 22:59 06:59 14:59 Intake Total 300 / 425 300 / 725 290 / 290 Output Total 650 / 2210 500 / 2710 700 / 700 Balance -350 / -1785 -200 / -1985 -410 / -410 Weight last 48 hrs Weight 86.353 kg Weight 90.22 kg Physical Exam 2 Narrative: General Well-developed well-nourished obese female in no acute cardiopulmonary stress. Eye contact is somewhat angry or evasive CV irregular rhythm Lungs clear to auscultation Abdomen positive bowel tones soft nontender Right foot in gauze dressing which I did not remove. It is not soaked through or soiled Borges in place Urinary Catheter Management: Borges: Cath Placed During This Visit: yes Reason for Continuing Indwelling Catheter: Acute Urinary Retention or Obstruction Urinary Catheter Date of Insertion: 06/25/25 Urinary Catheter Time of Insertion: 08:49 Data 07/01/25 05:21 07/01/25 05:21 Micro: Microbiology 06/25/25 12:30 Gram Stain - Final Toe - #1 Anaerobic Culture - Preliminary Wound Culture - Final 06/25/25 09:45 Blood Culture - Final Blood NO GROWTH AFTER 5 DAYS A&P Assessment and plan 1. Osteomyelitis: Continue with vancomycin and Zosyn pending MRSA screen. MRSA screen is negative surgery and Gram stain pending tomorrow consider discontinue vancomycin 2. Cellulitis of right foot: As above 3. CAD (coronary artery disease): continue aspirin daily and home antihypertensive regimen 4. PVD (peripheral vascular disease): aspirin daily and home Plavix 5. Controlled type 2 diabetes mellitus with diabetic peripheral angiopathy without gangrene, with long-term current use of insulin: Increase Lantus to 50 units twice a day, sliding scale insulin and weight loss 1500-calorie ADA diet as we discussed. Patient is agreeable. Medium scale sliding scale insulin Blood sugars running from 87-203 which is a big improvement from earlier in the hospital 6. Constipation: Start docusate, MiraLAX and lactulose. Patient had 2 bowel movement 7. Atelectasis: Continue incentive spirometer patient to be up in a chair twice a day for 2-hour Plan: Plan for the day: Will follow-up or report from podiatry team. For now no concern for osteomyelitis on foot x-ray, pathology of bone biopsy from previous OR. Patient has PICC line in place. Continue with Zosyn. Continue with vancomycin. Will consult ID for further recommendations to see if patient does need IV antibiotics as an outpatient. Most likely patient would be okay with oral antibiotics given concern for gas gangrene on admission. Appreciate podiatry recommendation. Blood sugar low today morning. For now we will change Lantus to once daily. Patient takes 40 units twice daily at home. Continue with moderate sliding scale. Hypoglycemia protocol. Goal blood pressure less than 140/90 mmHg. Continue to monitor. Patient at home takes amlodipine 5 mg twice daily, hydralazine 100 mg 3 times daily, losartan 50 mg twice daily. Discharge plan: As per podiatry recommendation patient would need transfer to SNF for rehabitation as patient will be nonweightbearing status for at least 6 weeks while her foot heals postoperatively. PDMP PDMP Reviewed: Not Reviewed Attestations 2 Medical Necessity Statement*: Follow-up requires further hospitalization with concerns for gas gangrene, further operative needs for amputation while outpatient antibiotics are set up, hyperglycemia Diagnoses Osteomyelitis M86.9 Cellulitis of right foot L03.115 CAD (coronary artery disease) I25.10 PVD (peripheral vascular disease) I73.9 Controlled type 2 diabetes mellitus with diabetic peripheral angiopathy without gangrene, with long-term current use of insulin E11.9; Z79.4 Constipation K59.00 Atelectasis J98.11
[2025-06-30 12:24] LABS: Iron 91 ug/dL (37-145)
[2025-06-30 12:38] LABS: Procalcitonin 0.09 ng/mL (0-0.5)
[2025-06-30 13:08] LABS: Vitamin B12 > 2000 pg/mL (232-1245)
[2025-06-30 13:09] LABS: Total Iron Binding Capacity 287 mcg/dl; Unsaturated Iron Binding 196 ug/dL (112-347)
[2025-06-30] MEDS: BUPivacaine 0.5% INJ 30 mL 15 ML INJECTION (13:11)
--- NOTE | 2025-06-30 13:25 | P.OP_ITS ---
Operative Report Date of procedure: June 30, 2025 Pre-op diagnosis: Osteomyelitis right great toe. Gangrene right foot. Post-op diagnosis: Same Post-op findings: Clean margins at right transmetatarsal amputation site. Minimal bleeding encountered intraoperatively. Procedure done: 1) CPT 66668 2) CPT 14451 Implants: 2-0 Vicryl, 3-0 Vicryl, 3-0 nylon, 10 [place] LASHON drain Specimens removed/disposition: None Pathology: Right forefoot sent to pathology for permanent Surgeon: Von Fonseca DPM Sizing Sprayer: Jose De Jesus Estimated blood loss: 10 39 minutes Urine output: See intraoperative documentation Complications: No complications Brief History: Patient presented to emergency department with malaise, nausea and was found to have gas gangrene of the right forefoot underwent initial partial first ray amputation and antibiotic therapy with clinical monitoring daily, further devitalized tissue at the forefoot necessitated transmetatarsal potation's most functional means of amputation level with questionable vascular status due to known peripheral arterial disease with recent revascularization to the right lower extremity may ultimately require higher level of amputation such as below- knee amputation. Patient wishes to proceed with TMA to the right foot. No guarantees written, expressed or implied in regards to timely healing and need for higher level of amputation. Procedure: Under mild sedation the patient was brought to the operating room remained on the gurney in supine position. A timeout was performed. Anesthesia was then administered by the anesthesia service. Local anesthesia injected by myself in a V-block to the right posterior Achilles with 10 cc of 0.5% Marcaine plain with an additional 20 cc of 0.5's Marcaine plain in a 5 point block to the right ankle. Well-padded pneumatic tourniquet applied to the right calf. The right lower extremity was scrubbed, prepped and draped utilizing normal aseptic technique. Right foot was elevated and tourniquet inflated to 250 mmHg. Attention was directed to the equinus contracture of the right Achilles, triple hemisection was performed 1.5 cm from the insertion of the right Achilles tendon spaced out 1.5 cm in distance and a total of 3 hitting hemisections performed with an Achilles lengthening appreciated intraoperatively and intact Achilles tendon appreciated intraoperatively the incisions were irrigated and closed with 3-0 nylon and covered with an OpSite. Attention was directed to the right forefoot where devitalized soft tissue and bone and tendon appreciated at the amputation site of the partial right first ray, nonviable skin flaps to the extent that in order to obtain closure a transmetatarsal amputation would be necessitated. Full-thickness incision fishmouth style incision down to bone with a #10 blade from medial to lateral at the right forefoot, right first metatarsal was disarticulated at the metatarsal base and metatarsals 2, 3, 4, 5 were transected with a sagittal saw all rough edges smoothed. Right forefoot was then passed from operative field and sent to pathology for gross anatomical review and permanent. The incision was irrigated with copious amounts of sterile saline solution and debrided of all devitalized soft tissue including muscle tendon and fascia, extensor and flexor tendons transected under traction at the most proximal margin. All bleeders were ligated and cauterized as necessary. Minimal bleeding encountered intraoperatively. The incision was irrigated with copious amounts of Irrisept and saline solution and closed in a layered fashion without tension, myofascial layer reapproximated with 2-0 Vicryl, subcutaneous tissue with 3-0 Vicryl and skin with 3-0 nylon, patient continued Plavix and aspirin perioperatively due to underlying PAD and revascularization for this reason a LASHON drain 10 [place] was inserted at the amputation site to help mitigate hematoma formation. The incision was dressed with Xeroform, sterile 4 x 4 gauze, Kerlix and a well- padded noncompressive posterior splint was applied to the right lower extremity for immobilization. No compression applied due to underlying PAD. Tourniquet was deflated and a hyperemic response was noted to the TMA site this was delayed approximately 5 seconds. Patient tolerated the procedure and anesthesia well and was transferred to the PACU with vital signs stable and vascular status intact. Following a period of postoperative monitoring she will be transferred back to the floor, will upper pain medication hydrocodone 05/30/2025 with as needed morphine 2 mg. Plans to de-escalate pain medication postoperatively as s oon as possible. Patient is advised to remain strict nonweightbearing to the right lower extremity at this time until transmetatarsal potation site is healed. Will require [facility], no further surgical intervention anticipated during this hospitalization.
--- NOTE | 2025-06-30 13:26 | W.PM.BPON ---
Date of Procedure: 11/10/23 Surgeon: Von Fonseca DPM Incident Response Manager(s): Jose De Jesus Procedure(s) performed: Right transmetatarsal amputation and Achilles lengthening. Findings of the procedure(s): Gangrene right foot and equinus right ankle. Estimated blood loss: 10 mL Specimen(s) removed: Right forefoot sent to pathology for permanent Post-operative diagnosis: Gangrene right foot, equinus right ankle
--- NOTE | 2025-06-30 13:33 | ANE.PACU2 ---
Inpatient post-anesthesia follow up: Airway intact: Yes Vital signs: Temperature 97.6 F Pulse Rate 67 Respiratory Rate 17 Blood Pressure 104/80 Pulse Oximetry 96 Oxygen Delivery Me thod Oxymask Oxygen Flow Rate 6 Fraction of Inspir ed Oxygen Hydration adequate: Yes Nausea and vomiting: No Pain level: 1 Mental status: Baseline
--- NOTE | 2025-06-30 13:47 | PC.NURSE ---
accepted into room 258 with RN at side - no distress in pt noted upon this nurse exiting floor - oxymask at 6L - both anesthesia and floor aware
[2025-06-30] MEDS: morphine 4 mg/mL SDV 1 mL 2 MG IVP (15:49)
[2025-06-30] MEDS: HYDROcodone-acetaminophen 10-325 mg Tablet 1 TAB PO ×2 (17:37→21:36)
[2025-07-01] VITALS (10 sets, daily range): BP systolic 130–152; BP diastolic 65–76; PULSE 81–98; RESP 16–20; TEMP 36.4–36.7; O2SAT 93–99
[2025-07-01] MEDS: lactobacillus 1 Tablet 1 TAB PO ×2 (05:13→15:45)
[2025-07-01] MEDS: polyethylene glycol 3350 Pkt 17 gm PO (05:14)
[2025-07-01] MEDS: HYDROcodone-acetaminophen 10-325 mg Tablet 1 TAB PO ×2 (05:18→08:48)
[2025-07-01] MEDS: piperacillin-tazobactam 4.5 GM in sodium chloride 0.9% (plus) 50 ML IV ×3 (05:18→21:51)
[2025-07-01 06:18] LABS: Hematocrit 34.9 % (36-47); Hemoglobin 11.50 g/dL (11.27-16.99); Mean Corpuscular HGB Conc 33.0 g/dL (30-55); Mean Corpuscular Hemoglobin 30.3 pg (27-33); Mean Corpuscular Volume 92.1 fl (85-98); Nucleated Red Blood Cells % 0 %; Platelet Count 480 10^3/cmm (157-399); Red Blood Count 3.79 10^6/uL (3.85-5.65); White Blood Count 25.51 10^3/uL (3.29-11.43)
[2025-07-01 06:37] LABS: Alanine Aminotransferase 26 U/L (0-33); Albumin Level 2.6 g/dL (3.5-5.2); Alkaline Phosphatase 120 U/L (35-105); Anion Gap 14.6 (5-19); Aspartate Amino Transferase 23 U/L (0-32); Blood Urea Nitrogen 11 mg/dL (8-23); Calcium 8.7 mg/dL (8.5-10.5); Carbon Dioxide 23 mmol/L (22-29); Chloride 103 mmol/L (98-107); Globulin 3.6 g/dL (1.3-4.6); Glucose 43 mg/dL (65-115); Osmolality Calculated 280 mOsm/kg (285-295); Potassium 3.6 mmol/L (3.5-5.1); Sodium 137 mmol/L (136-145); Total Protein 6.2 g/dL (6.6-8.7)
--- NOTE | 2025-07-01 06:37 | PM.PN ---
Subjective Subjective: Patient seen bedside this morning, 1 day status post right transmetatarsal amputation with closure and right Achilles lengthening secondary to gangrene and equinus. States that she is feeling better. Endorses right foot pain. Vitals/I&O/Wt Last Vital Signs Temp 97.6 F 07/01/25 04:00 Pulse 82 07/01/25 04:00 Resp 17 07/01/25 04:00 BP 152/73 07/01/25 05:13 Pulse Ox 98 07/01/25 04:00 O2 Del Method Room Air 07/01/25 04:00 O2 Flow Rate 6 06/30/25 13:30 06/30/25 06/30/25 07/01/25 14:59 22:59 06:59 Intake Total 125 / 125 300 / 425 300 / 725 Output Total 1560 / 1560 650 / 2210 500 / 2710 Balance -1435 / -1435 -350 / -1785 -200 / -1985 Weight last 48 hrs Weight 190 lb 6 oz Weight 198 lb 14.4 oz Physical Exam Narrative: GENERAL: Patient is alert and oriented ?3 and in no acute distress. The following is a focused bilateral lower extremity exam. VASCULAR: Dorsalis pedis diminished bilaterally. Posterior tibial arteries diminished. Capillary refill time less than 5 seconds to the distal hallux bilaterally. Calf is supple and nontender proximally and distally. No pedal edema, decreased pedal hair growth noted. NEUROLOGICAL: Protective sensation intact 0/10 sites, tested with [place] monofilament to bilateral feet. DERMATOLOGICAL: Surgical dressing is clean, dry and intact, LASHON drain approximately 40 mL of serosanguineous drainage. MUSCULOSKELETAL: Status post right transmetatarsal amputation. Urinary Catheter Management: Borges: Cath Placed During This Visit: yes Reason for Continuing Indwelling Catheter: Acute Urinary Retention or Obstruction Urinary Catheter Date of Insertion: 06/25/25 Urinary Catheter Time of Insertion: 08:49 Data 07/01/25 05:21 07/01/25 05:21 Micro: Microbiology 06/25/25 09:45 Blood Culture - Final Blood NO GROWTH AFTER 5 DAYS 06/25/25 12:30 Gram Stain - Final Toe - #1 Anaerobic Culture - Preliminary Wound Culture - Final 06/25/25 05:59 Blood Culture - Final Blood NO GROWTH AFTER 5 DAYS A&P Assessment and plan 1. Peripheral arterial disease: 2. Cellulitis of right foot: 3. Non-pressure chronic ulcer of other part of right foot with necrosis of bone: Ms. Key, an 85-year-old with advanced comorbidities of Diabetes Mellitus and Peripheral Arterial Disease (PAD), underwent a Transmetatarsal Amputation (TMA) of the right foot on [Date of Surgery, assumed June 30, 2025] due to progressive gangrene. Successful healing is highly guarded due to her systemic risk factors. Functional Justification: Strict Vvw-Patcnj-Arkagmx Status The patient?s current status dictates that she is a high risk for wound failure if discharged to a lower level of care. Mandatory Restriction: Post-TMA, the patient is under a strict, absolute Key-Bmkdpv-Aajrfum (NWB) mandate on the right lower extremity to allow for crucial soft tissue and bony healing across the amputation site. Anticipated Duration: This NWB status is anticipated to last a minimum of six (6) weeks post-operatively, projected until approximately August 11, 2025. Risk of Non-Compliance (Limb & Life Threatening): Any premature or accidental weight-bearing will directly cause breakdown of the surgical flap and dehiscence, leading to: Surgical Failure: Requiring immediate reoperation. Infection and Sepsis: Introduction of bacteria into the deep tissue, risking a systemic, life-threatening infection. Higher Amputation: Loss of the limb salvage attempt, mandating a higher-level amputation such as a Below-Knee Amputation (BKA). SNF Necessity: Due to her age, comorbidities, and the functional demands of maintaining NWB status (especially for transfers, toileting, and self-care), the patient requires 24-hour [facility] [facility] supervision and physical assistance that cannot be safely replicated in a home setting. Medical Justification: Complex Skilled Management Continued SNF placement is medically necessary for stabilization and healing, requiring multiple skilled services: Wound Care and Monitoring: The TMA site requires complex, skilled daily dressing changes and aggressive monitoring by licensed nursing staff to detect the earliest signs of flap necrosis, infection, or dehiscence?a critical necessity given the patient's history of gangrene and PAD. Diabetic and Glycemic Control: Tightly managing the patient?s blood glucose levels is paramount for wound healing. Uncontrolled diabetes is the leading cause of surgical failure in this population. The SNF is required for daily blood glucose monitoring, insulin adjustments, and prompt response to hyperglycemic or hypoglycemic crises by [facility] staff. Nutritional Therapy: Successful healing of a large amputation site requires a systemic response. The patient requires daily monitoring by a registered nurse and/or consultation with a dietitian to ensure compliance with a Diabetic Diet and, crucially, a regimen of increased protein intake to fuel tissue regeneration and immunologic function. Conclusion and Authorization Request The transition to a lower level of care at this stage would constitute an unacceptable threat to the patient's life and limb, as it would severely compromise the outcome of her recent amputation and the integrity of her care plan. 4. Gangrene of right foot: Plan: Patient wishes to avoid below-knee amputation if at all possible. Status post right transmetatarsal amputation and right Achilles lengthening, guarded as to healing potential with underlying PAD, diabetes and low albumin indicating poor nutritional status. - Strict nonweightbearing to the right lower extremity - Continue empiric IV antibiotics - Recommend dietitian consultation - Patient agreeable for transfer to [facility] after this hospitalization, prefers senior care in [place] if possible. No further surgical intervention anticipated during this hospitalization from podiatry standpoint. PDMP PDMP Reviewed: Not Reviewed Attestations Medical Necessity Statement*: Requires continued antibiotics and close monitoring of amputation site viability Coding Level of Care Code Acute Code for [facility] Fwd Diagnoses Peripheral arterial disease I73.9 Cellulitis of right foot L03.115 Non-pressure chronic ulcer of other part of right foot with necrosis of bone L97.514 Gangrene of right foot I96
[2025-07-01 06:44] LABS: Magnesium 1.8 mg/dL (1.7-2.3)
--- NOTE | 2025-07-01 12:36 | P.PN_ITS ---
Subjective 2 Subjective: No acute events overnight. Complaining of foot pain today. States pain is not well-controlled. Patient did require oxygen postoperatively yesterday because of drowsiness. On entering the room she was drowsy and sleeping with oxygen requirement up to 4 L and saturating around 90% which improved to 100% while talking. Did have hypoglycemia today morning. Vitals/I&O/Wt Last Vital Signs Temp 97.9 F 07/01/25 11:41 Pulse 98 07/01/25 11:41 Resp 20 H 07/01/25 11:41 BP 133/76 07/01/25 11:41 Pulse Ox 98 07/01/25 11:41 O2 Del Method Nasal Cannula 07/01/25 11:41 O2 Flow Rate 3 07/01/25 08:58 06/30/25 07/01/25 07/01/25 22:59 06:59 14:59 Intake Total 300 / 425 300 / 725 290 / 290 Output Total 650 / 2210 500 / 2710 700 / 700 Balance -350 / -1785 -200 / -1985 -410 / -410 Weight last 48 hrs Weight 86.353 kg Weight 90.22 kg Physical Exam 2 Narrative: General Well-developed well-nourished obese female in no acute cardiopulmonary stress. Eye contact is somewhat angry or evasive CV irregular rhythm Lungs clear to auscultation Abdomen positive bowel tones soft nontender Right foot in gauze dressing which I did not remove. It is not soaked through or soiled Borges in place Urinary Catheter Management: Borges: Cath Placed During This Visit: yes Reason for Continuing Indwelling Catheter: Acute Urinary Retention or Obstruction Urinary Catheter Date of Insertion: 06/25/25 Urinary Catheter Time of Insertion: 08:49 Data 07/01/25 05:21 07/01/25 05:21 Micro: Microbiology 06/25/25 12:30 Gram Stain - Final Toe - #1 Anaerobic Culture - Preliminary Wound Culture - Final 06/25/25 09:45 Blood Culture - Final Blood NO GROWTH AFTER 5 DAYS A&P Assessment and plan 1. Osteomyelitis: Continue with vancomycin and Zosyn pending MRSA screen. MRSA screen is negative surgery and Gram stain pending tomorrow consider discontinue vancomycin 2. Cellulitis of right foot: As above 3. CAD (coronary artery disease): continue aspirin daily and home antihypertensive regimen 4. PVD (peripheral vascular disease): aspirin daily and home Plavix 5. Controlled type 2 diabetes mellitus with diabetic peripheral angiopathy without gangrene, with long-term current use of insulin: Increase Lantus to 50 units twice a day, sliding scale insulin and weight loss 1500-calorie ADA diet as we discussed. Patient is agreeable. Medium scale sliding scale insulin Blood sugars running from 87-203 which is a big improvement from earlier in the hospital 6. Constipation: Start docusate, MiraLAX and lactulose. Patient had 2 bowel movement 7. Atelectasis: Continue incentive spirometer patient to be up in a chair twice a day for 2-hour Plan: Plan for the day: Appreciate podiatry and ID recommendations. Most likely patient will not need IV antibiotics on discharge. Can plan to discharge on oral antibiotics. Patient does have worsening leukocytosis today. Could be in setting of postoperative status though. Patient also denies any dysuria, diarrhea, difficulty in breathing, cough or abdominal pain. Borges catheter removed on 06/26. Continue with current IV antibiotics for now. Hypoglycemic today morning. Hold off on any further long-acting insulin. Change sliding scale to low-dose protocol. Hypoglycemia protocol. Continue with losartan 50 mg oral daily, metoprolol 50 mg twice daily. Uptitrate for goal blood pressure. Restart home dose of Xarelto 2.5 mg twice daily. Monitor hemoglobin. Change pain medication to [place] 5 mg every 4 hours as needed, tramadol 50 mg every 6 hours as needed. Discharge plan: As per podiatry recommendation patient would need transfer to SNF for rehabitation as patient will be nonweightbearing status for at least 6 weeks while her foot heals postoperatively. PDMP PDMP Reviewed: Not Reviewed Attestations 2 Medical Necessity Statement*: Follow-up requires further hospitalization with concerns for gas gangrene, postoperative status, outpatient antibiotics are set up, hypoglycemia Diagnoses Osteomyelitis M86.9 Cellulitis of right foot L03.115 CAD (coronary artery disease) I25.10 PVD (peripheral vascular disease) I73.9 Controlled type 2 diabetes mellitus with diabetic peripheral angiopathy without gangrene, with long-term current use of insulin E11.9; Z79.4 Constipation K59.00 Atelectasis J98.11
[2025-07-01] MEDS: HYDROcodone-acetaminophen 5-325 mg Tablet 1 TAB PO ×2 (15:55→21:50)
--- NOTE | 2025-07-01 16:32 | PM.CONSULT ---
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 Patient had recently undergone a peripheral angiogram on 06/13/2025 where she was found to have 100% chronically occluded highly calcified [employer], 90%90% distal SFA, 80% mid popliteal, she also had 100% occluded anterior tibial posterior tibial and peroneal at the ostium Anterior tibial was filled through collateral in the distal segment.Lithotripsy and drug-coated balloon angioplasty of right common femoral artery was performed on 06/13/2025 with lesion reduced to about 50%. Peroneal arteries were not amenable to intervention. Anterior tibial fills through collaterals.her right leg was noted to be warm and moist at the time of discharge. She was admitted to the hospital on June 25, 2025 after presenting with worsening of a chronic wound which was located over the plantar aspect of her right great toe. She had been prescribed Keflex and ciprofloxacin on 06/16/2025 and then did not follow-up with podiatry as an outpatient. She was found to have gangrenous changes affecting the right medial forefoot. There was positive bone to test right hallux wound. Soft tissue emphysema was noted just medial to the first metatarsophalangeal joint. She underwent right great toe amputation and I&D of the bone cortex of the first metatarsal on June 25, 2025. Pathology from the great toe showed acute and chronic inflammation and bony margin involved by acute inflammation. Postoperatively she was noted to have continued devitalized tissue at the forefoot and ultimately required a transmetatarsal amputation. She was offered a BKA given severe peripheral artery disease and high risk of wound dehiscence but refused, therefore decision was made to proceed with TMA on 06/30/2025. Infectious disease services consulted as patient continues to have a persistent leukocytosis and to assess for need for IV antibiotics for wound infection. OR cultures from 06/25/2025 from the right great toe have not shown any growth. Blood cultures were negative from admission. Patient is clinically feeling better compared to admission. She has been afebrile. WBC trend shows a white blood cell count of 26,000 on admission, trended down to 17,000 on 06/28, now increased to 25,000. Review of system is positive for a dry cough. No expectoration. Has a Borges catheter in place. Chest x-ray reviewed, showing bilateral atelectasis, no infiltrates. No reported diarrhea. She has been on treatment with piperacillin/tazobactam and vancomycin since admission. Review of Systems General: Reports: 10 or more systems reviewed and unremarkable except in HPI and below Const: Denies: fever(s), chills or body aches Eyes: Denies: change in vision, blurry vision or photophobia ENMT: Reports: hoarseness; Denies: throat pain, enlarged tonsils, odynophagia or nasal congestion Card: Denies: chest pain, palpitations, irregular heart rhythm, edema, swelling of feet/ankles, lightheadedness, pre-syncope, dyspnea on exertion or orthopnea Resp: Denies: dyspnea, productive cough, non-productive cough, wheezing, stridor, pain on inspiration, change in phlegm color, hemoptysis or chest congestion GI: Denies: abdominal pain, nausea, vomiting, hematemesis, coffee ground emesis, dysphagia, heartburn, diarrhea, constipation, GI cramping, change in stool character, hematochezia or melena : Denies: flank pain, difficulty voiding, dysuria, urinary frequency, urinary urgency, urinary hesitancy or hematuria Musc: Denies: neck pain, back pain, extremity pain, joint swelling, joint warmth or deformity Neuro: Denies: headache(s), numbness in extremities, weakness in extremities, sensory changes, difficulty walking, frequent falls, dizziness, vertigo, behavioral changes, Slurred speech present or seizure-like activity Psych: Denies: anxiety, depression, suicidal ideation or homicidal ideation Endo: Denies: polyuria, polydipsia, tired all the time, cold intolerance or hot flashes Aaron/Lymph: Denies: easy bruising or easy bleeding Medications/Allergies Home Medications ?Medication ?Instructions ?Recorded ?Confirmed ?Last Taken ?Type famotidine 20 mg tablet 20 mg PO DAILY 12/06/25/25 06/24/25 History Diabetic shoes with 3 sets of #1 ea 10/23/24 06/25/25 Unknown Rx insoles melatonin 10 mg capsule 10 mg PO BEDTIME 02/03/25 06/25/25 06/24/25 History tramadol 50 mg tablet 50 mg PO TID PRN pain #90 tabs 03/18/25 06/25/25 06/11/25 21:00 Rx amlodipine 5 mg tablet 5 mg PO BID #90 tabs 04/24/25 06/25/25 06/24/25 Rx clopidogrel 75 mg tablet (Plavix) 75 mg PO DAILY #90 tabs 04/24/25 06/25/25 06/24/25 Rx ezetimibe 10 mg tablet 10 mg PO DAILY #90 tabs 04/24/25 06/25/25 06/24/25 Rx furosemide 40 mg tablet 40 mg PO DAILY #90 tabs 04/24/25 06/25/25 06/24/25 Rx losartan 50 mg tablet 50 mg PO BID #180 tabs 04/24/25 06/25/25 06/24/25 Rx metoprolol tartrate 100 mg tablet 100 mg PO BID #180 tabs 04/24/25 06/25/25 06/24/25 Rx nitroglycerin 0.4 mg sublingual 0.4 mg sublingual Q5M PRN chest 04/24/25 06/25/25 Unknown Rx tablet pain #30 tabs spironolactone 50 mg tablet 50 mg PO DAILY #90 tabs 04/24/25 06/25/25 06/24/25 Rx atorvastatin 80 mg tablet (Lipitor) 80 mg PO DAILY #90 tabs 06/10/25 06/25/25 06/24/25 Rx glipizide 10 mg tablet, extended 10 mg PO BID #180 tabs 06/10/25 06/25/25 06/24/25 Rx release 24 hr rivaroxaban 2.5 mg tablet (Xarelto) 2.5 mg PO BID #180 tabs 06/13/25 06/25/25 06/24/25 Rx ciprofloxacin HCl 500 mg tablet 500 mg PO BID #20 tabs 07/02/25 Unknown Rx (Cipro) linezolid 600 mg tablet 600 mg PO BID 10 days #20 tabs 07/02/25 Unknown Rx Allergies Allergy/AdvReac Type Severity Reaction Status Date / Time codeine AdvReac Mild unknown Verified 06/16/25 09:45 lisinopril AdvReac Mild ADR-Cough Verified 06/16/25 09:45 morphine AdvReac Mild unknown Verified 06/16/25 09:45 Penicillins AdvReac Mild unknown Verified 06/16/25 09:45 Current Medications Generic Name Dose Route Start Last Admin Trade Name Freq PRN Reason Stop Dose Admin Acetaminophen 650 mg 06/25/25 06:23 06/29/25 05:26 Acetaminophen 325 Mg Tablet PO 650 mg Q6H PRN Administration Mild/Mod Pain Or Temp >/= 101 Hydrocodone Bitart/Acetaminophen 1 tab 07/01/25 12:39 07/01/25 15:55 Hydrocodone-Acetaminophen 5-325 Mg Tablet PO 1 tab Q4H PRN Administration MODERATE PAIN Aspirin 81 mg 06/25/25 17:00 07/01/25 05:13 Aspirin 81 Mg Ec Tablet PO 81 mg DAILY MARY Administration Atorvastatin Calcium 80 mg 06/26/25 05:00 07/01/25 05:13 Atorvastatin 40 Mg Tablet PO 80 mg DAILY MARY Administration Clopidogrel Bisulfate 75 mg 06/25/25 17:01 07/01/25 05:13 Clopidogrel 75 Mg Tablet PO 75 mg DAILY MARY Administration Docusate Sodium 200 mg 06/28/25 17:00 07/01/25 15:45 Docusate Sodium 100 Mg Capsule PO 200 mg BID MARY Administration Ezetimibe 10 mg 06/26/25 05:00 07/01/25 05:13 Ezetimibe 10 Mg Tablet PO 10 mg DAILY MARY Administration Famotidine 20 mg 06/26/25 05:00 07/01/25 15:44 Famotidine 20 Mg Tablet PO 20 mg BID MARY Administration Piperacillin Sod/Tazobactam 50 mls @ 12.5 mls/hr 06/25/25 14:00 07/01/25 15:43 Sod 4.5 gm/ Sodium Chloride IV 12.5 mls/hr Q8H MARY Administration Protocol Vancomycin HCl 1,250 mg in 250 mls @ 166.667 mls/hr 07/01/25 14:00 07/01/25 15:56 Vancocin IV Infused Q12H MARY Infusion Insulin Human Lispro 0 unit 06/26/25 18:00 07/01/25 12:37 Insulin Lispro 100 Unit/1 Ml SUBCUT 6 unit WM&BEDTIME MARY Administration Protocol Lactobacillus Acidophilus 1 tab 06/28/25 17:00 07/01/25 15:45 Lactobacillus 1 Tablet PO 1 tab BID MARY Administration Losartan Potassium 50 mg 06/28/25 05:00 07/01/25 05:13 Losartan 50 Mg Tablet PO 50 mg DAILY MARY Administration Metoprolol Tartrate 50 mg 06/27/25 13:31 07/01/25 08:48 Metoprolol Tartrate 50 Mg Tablet PO 50 mg BID@0900,2100 MARY Administration Morphine Sulfate 2 mg 06/30/25 15:07 06/30/25 15:49 Morphine 4 Mg/Ml Sdv 1 Ml IVP 2 mg Q4H PRN Administration SEVERE PAIN Ondansetron HCl 4 mg 06/25/25 18:13 06/26/25 00:27 Ondansetron 2 Mg/Ml Sdv 2 Ml IVP 4 mg Q6H PRN Administration NAUSEA AND VOMITING Ondansetron HCl 4 mg 06/26/25 23:33 06/27/25 00:05 Ondansetron Hcl Odt 4 Mg Tab PO 4 mg Q4H PRN Administration NAUSEA AND VOMITING Polyethylene Glycol 17 gm 06/28/25 15:17 07/01/25 05:14 Polyethylene Glycol 3350 Pkt 17 Gm PO 17 gm DAILY MARY Administration Rivaroxaban 2.5 mg 07/01/25 17:00 07/01/25 15:45 Rivaroxaban 10 Mg Tablet PO 2.5 mg BID MARY Administration PFSH Acute PFSH: Medical History Osteomyelitis Osteoporosis Atheroscler of [place] artery of both legs with intermit claudication Aortic valve sclerosis TARIK (obstructive sleep apnea) Diastolic dysfunction Chronic right hip pain Osteoarthritis Mixed hyperlipidemia Controlled type 2 diabetes mellitus, with long-term current use of insulin GERD (gastroesophageal reflux disease) Essential hypertension Surgical History History of bilateral hip hemiarthroplasty Left History of cardiac cath Prox LAD, mid RCA and CX 09/17 History of atherectomy with stenting - L SFA and pop artery 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 - [place] - four vessel History of amputation of toe History of hip surgery bilateral History of surgery on arm Family History Other Cancer Diabetes Social History Smoking and tobacco/nicotine status: former use of tobacco/nicotine Alcohol intake: never Substance/Drug Use: never Vitals/I&O/Wt Last Vital Signs Temp 97.9 F 07/01/25 15:35 Pulse 86 07/01/25 15:35 Resp 16 07/01/25 15:35 BP 135/74 07/01/25 15:35 Pulse Ox 93 07/01/25 15:35 O2 Del Method Nasal Cannula 07/01/25 15:35 O2 Flow Rate 3 07/01/25 12:36 07/01/25 07/01/25 07/01/25 06:59 14:59 22:59 Intake Total 300 / 725 290 / 290 250 / 540 Output Total 500 / 2710 700 / 700 Balance -200 / -1985 -410 / -410 250 / -160 Weight last 48 hrs Weight 86.353 kg Weight 90.22 kg Physical Exam Narrative: General: No acute distress, AO x3 HEENT: PERRLA, pupils bilaterally equal and reactive, pallors not present Chest: Normal vesicular breath sounds, no added sounds, equal good air entry bilaterally CVS: S1-S2 regular, no murmurs, no tachycardia, no gallops, no rubs Abdomen: Soft, nontender, no organomegaly, bowel sounds present Neuro: No focal deficits, no facial deformity, AO x3, power 5/5 in all limbs Extremities: Present in postsurgical dressing. Urinary Catheter Management: Borges: Cath Placed During This Visit: yes Reason for Continuing Indwelling Catheter: Acute Urinary Retention or Obstruction Urinary Catheter Date of Insertion: 06/25/25 Urinary Catheter Time of Insertion: 08:49 Data 07/03/25 09:26 07/02/25 06:30 Micro: Microbiology 06/25/25 12:30 Gram Stain - Final Toe - #1 Anaerobic Culture - Preliminary Wound Culture - Final Other data: Radiology Impressions Aorta w/Runoff CTA 06/25/25 05:15 IMPRESSION: 1. Severe peripheral arterial disease in each lower extremity including occlusive tibial artery disease as described above. The severe lower extremity peripheral arterial disease is similar in appearance to the prior exam. 2. Swelling, phlegmon and gas in the soft tissues of the right great toe suggesting significant infection. No CT evidence of right great toe osteomyelitis at this time however the CT appearance of osteomyelitis is typically a late finding. 3. Bilateral lower extremity edema concerning for cellulitis. 4. Stable severe stenoses of the origin of the [place]. 5. Cholelithiasis but no suggestion of cholecystitis. 6. Small gas droplets within the urinary bladder. Consider UA to evaluate for cystitis. 7. Gas within the endometrial canal. Endometritis not excluded. Foot X-Ray 06/26/25 06:34 IMPRESSION: 1. Recent amputation of parts of the first ray as detailed above. Prior amputation of parts of the second ray. Chest X-Ray 06/29/25 04:23 IMPRESSION: No significant change. Laboratory Results WBC 16.96 10^3/uL (3.29-11.43) H 07/03/25 09:26 RBC 3.76 10^6/uL (3.85-5.65) L 07/03/25 09:26 Hgb 11.10 g/dL (11.27-16.99) L 07/03/25 09:26 Hct 34.4 % (36-47) L 07/03/25 09: MCV 91.5 fl (85-98) 07/03/25 09: MCH 29.5 pg (27-33) 07/03/25 09: MCHC 32.3 g/dL (30-55) 07/03/25 09: RDW 15.0 % (12.1-15.1) 07/03/25 09: Plt Count 399 10^3/cmm (157-399) 07/03/25 09: MPV 9.8 fL (7.4-10.4) 07/03/25 09: Neut % (Auto) 78.8 % 07/03/25 09: Lymph % (Auto) 10.4 % 07/03/25 09: Gray % (Auto) 7.4 % 07/03/25 09: Eos % (Auto) 2.0 % 07/03/25 09: Baso % (Auto) 0.8 % 07/03/25 09: Neut # (Auto) 13.35 10^3/uL (1.8-7.7) H 07/03/25 09:26 Lymph # (Auto) 1.8 10^3/uL (0.8-4.8) 07/03/25 09:26 Gray # (Auto) 1.3 10^3/uL (0.2-0.9) H 07/03/25 09:26 Eos # (Auto) 0.3 10^3/uL (0.0-0.8) 07/03/25 09:26 Baso # (Auto) 0.1 10^3/uL (0.0-0.1) 07/03/25 09:26 Nucleated RBC % (auto) 0 % 07/03/25 09: Nucleated RBCs # 0.0 /100WBC 07/03/25 09:26 ESR 78 mm/hr (0-15) H 06/25/25 05:59 Sodium 134 mmol/L (136-145) L 07/02/25 06:30 Potassium 4.4 mmol/L (3.5-5.1) 07/02/25 06:30 Chloride 102 mmol/L (98-107) 07/02/25 06:30 Carbon Dioxide 23 mmol/L (22-29) 07/02/25 06:30 Anion Gap 13.4 (5-19) 07/02/25 06:30 BUN 9 mg/dL (8-23) 07/02/25 06:30 Creatinine 0.5 mg/dL (0.5-0.9) 07/02/25 06:30 GFR Calculation Not Reportable 07/02/25 06:30 Glucose 115 mg/dL (65-115) 07/02/25 06:30 POC Glucose 251 mg/dL (70-110) H 07/03/25 10:19 Estimat Average Glucose 232 06/26/25 00:53 Hemoglobin A1c 9.7 % (4.0-6.0) H 06/26/25 00:53 Calculated Osmolality 278 mOsm/kg (285-295) L 07/02/25 06:30 Lactic Acid 2.2 mmol/L (0.5-2.2) 06/25/25 09:45 Lactic Acid (Sepsis) 2.4 mmol/L (0.5-2.2) H 06/25/25 13:30 Calcium 8.6 mg/dL (8.5-10.5) 07/02/25 06:30 Phosphorus 2.7 mg/dL (2.5-4.5) 06/26/25 00:53 Magnesium 1.8 mg/dL (1.7-2.3) 07/03/25 04:56 Iron 91 ug/dL (37-145) 06/30/25 11:30 TIBC 287 mcg/dl 06/30/25 11:30 % Saturation 31.7 % (20-50) 06/30/25 11:30 Unsat Iron Binding 196 ug/dL (112-347) 06/30/25 11:30 Total Bilirubin 0.7 mg/dL (0.15-1.2) 07/02/25 06:30 AST 24 U/L (0-32) 07/02/25 06:30 ALT 22 U/L (0-33) 07/02/25 06:30 Alkaline Phosphatase 108 U/L (35-105) H 07/02/25 06:30 C-Reactive Protein 73.4 mg/L (0.0-4.9) H 06/28/25 08:29 NT-Pro-B Natriuret Pep 3489 pg/mL (0-450) H 06/25/25 09:45 Total Protein 5.8 g/dL (6.6-8.7) L 07/02/25 06:30 Albumin 2.4 g/dL (3.5-5.2) L 07/02/25 06:30 Globulin 3.4 g/dL (1.3-4.6) 07/02/25 06:30 Lipase 8 U/L (13-60) L 06/25/25 09:45 Vitamin B12 > 2000 pg/mL (232-1245) H 06/30/25 11:30 Folate 9.6 ng/mL (4.8-37.3) 07/01/25 05:29 Procalcitonin 0.09 ng/mL (0-0.5) 06/30/25 11:30 TSH 3.76 uIU/mL (0.27-4.20) 06/28/25 08:29 Nasal MRSA (PCR) Not detected (Not Detecte) 06/28/25 16:30 Vancomycin Trough 23.8 ug/mL (10-15) H 07/03/25 13:06 NAME: Malcolm Key #: [id number] LOC: [facility] U #: [id number] AGE/SX: 85/F ROOM: 258 RE06/25/[address]: Reuben Matthews MD : 1940 BED: 1 DIS: FAX #: STATUS: ADM IN TLOC: Spec #: [id number] Jayy: 06/25/25 Status: COMP Req #: [id number] Recd: 06/25/[address]: Von Fonseca DPM Src: Toe SpDesc: #1 Ordered: WC and GS, Anaer Comments: Comment RIGHT GREAT TOE Procedure Result Verified Site Gram Stain Final 06/26/25 Result NO ORGANISMS SEEN NO WHITE BLOOD CELLS Anaerobic Culture Final 07/02/25-162 NO ANAEROBES ISOLATED ON DAY 6 Anaerobic Culture Preliminary (changed) 07/01/25-1220 NO ANAEROBES ISOLATED ON DAY 6 Anaerobic Culture Preliminary (changed) 06/30/25-0950 NO ANAEROBES ISOLATED ON DAY 5 Anaerobic Culture Preliminary (changed) 06/29/25-1421 NO ANAEROBES ISOLATED ON DAY 4 Anaerobic Culture Preliminary (changed) 06/28/25-1641 NO ANAEROBES ISOLATED ON DAY 3 Anaerobic Culture Preliminary (changed) 06/27/25-1800 NO ANAEROBES ISOLATED ON DAY 2 Anaerobic Culture Preliminary (changed) 06/26/25-1239 NO ANAEROBES ISOLATED ON DAY 1 Wound Culture Final 06/28/25-1608 FEW MIXED SUPERFICIAL OZ ON DAY 3 Wound Culture Preliminary (changed) 06/27/25-1120 FEW MIXED SUPERFICIAL OZ ON DAY 2 Wound Culture Preliminary (changed) 06/26/25-1158 FEW MIXED SUPERFICIAL OZ ON DAY 1 NAME: Malcolm Key LOC: [facility] U #: [id number] AGE/SX: 85/F ROOM: 258 RE06/25/[address]: Reuben Matthews MD : 1940 BED: 1 DIS: FAX #: STATUS: ADM IN TLOC: Spec #: [id number] Jayy: 06/25/25 Status: COMP Req #: [id number] Recd: 06/25/[address]: Jesu Vogel DO Src: Blood SpDesc: Ordered: Bcult Comments: X2 WHEN TRYING TO GET SECOND SET OF CULTURES. MOLLY IS AWARE. [facility] [id number] Procedure Result Verified Site Blood Culture Final 06/30/25 NO GROWTH AFTER 5 DAYS Blood Culture Preliminary (changed) 06/26/25-999 NEGATIVE TO DATE Blood Culture Preliminary (changed) 06/25/25-1006 SPECIMEN COLLECTED NAME: Malcolm Key LOC: [facility] [place] #: [id number] AGE/SX: 85/F ROOM: 258 RE06/25/[address]: Reuben Matthews MD : 1940 BED: 1 DIS: FAX #: STATUS: ADM IN TLOC: Spec #: [id number] Jayy: 06/25/25 Status: COMP Req #: [id number] Recd: 06/25/[address]: Jesu Vogel DO Src: Blood SpDesc: Ordered: Bcult Procedure Result Verified Site Blood Culture Final 06/30/25 NO GROWTH AFTER 5 DAYS Blood Culture Preliminary (changed) 06/26/25 NEGATIVE TO DATE Blood Culture Preliminary (changed) 06/25/25-616 SPECIMEN COLLECTED A&P Assessment and plan 1. Osteomyelitis: 2. Cellulitis of right foot: 3. Gangrene due to peripheral vascular disease: 4. Gangrene due to arterial insufficiency: Plan: 85-year-old lady with known chronic diabetic foot infection with osteomyelitis of the great toe, severe peripheral artery disease necessitating intervention recently on 06/13/2025 for critical limb ischemia presented to the emergency room on 06/25/2025 with gangrene. Status post great toe amputation initially however with persistent forefoot cellulitic changes offered BKA which was refused. Patient agreed to proceed with a transmetatarsal amputation which was completed on 06/30/2025. Patient does remain at a high risk of wound dehiscence related to her peripheral vascular disease. Pathology from great toe showing acute and chronic inflammatory changes, probe to bone positive consistent with osteomyelitis. Status post TMA which would be considered definitive amputation for source control. She has been on an extended course of IV piperacillin/tazobactam and vancomycin. Though she has persistent leukocytosis, there do not appear to be currently any signs or symptoms of unaddressed infection. Chest x-ray showing bilateral atelectasis. Should there be a possibility of pneumonia she has been appropriately covered with piperacillin/tazobactam and vancomycin which would be curative for pneumonia as well. Favor leukocytosis to be reactive, Monitor for now without any other change in antibiotic coverage. May be transition to oral antibiotics ciprofloxacin 500 twice daily and linezolid 600 mg twice daily at the time of discharge for continued empiric treatment of cellulitis. PDMP PDMP Reviewed: Not Reviewed Consult Attestations Medical Necessity Statement: per admitting Coding Level of Care Code Acute Code for Chg Fwd High MDM includes number and complexity of problems actively addressed during encounter, amount and/or complexity of data reviewed/ordered and described risk of complication, morbidity or mortality of management as documented Diagnoses Osteomyelitis M86.9 Cellulitis of right foot L03.115 Gangrene due to peripheral vascular disease I73.9 Gangrene due to arterial insufficiency I77.1; I96
[2025-07-02] VITALS (9 sets, daily range): BP systolic 109–169; BP diastolic 55–95; PULSE 80–94; RESP 16–20; TEMP 36.3–36.8; O2SAT 91–97
[2025-07-02] MEDS: HYDROcodone-acetaminophen 5-325 mg Tablet 1 TAB PO ×4 (02:05→17:42)
[2025-07-02] MEDS: lactobacillus 1 Tablet 1 TAB PO ×2 (05:03→17:11)
[2025-07-02] MEDS: piperacillin-tazobactam 4.5 GM in sodium chloride 0.9% (plus) 50 ML IV ×3 (05:04→21:17)
[2025-07-02] MEDS: polyethylene glycol 3350 Pkt 17 gm PO (05:05)
[2025-07-02 05:53] LABS: Hematocrit 31.9 % (36-47); Hemoglobin 10.60 g/dL (11.27-16.99); Mean Corpuscular HGB Conc 33.2 g/dL (30-55); Mean Corpuscular Hemoglobin 30.1 pg (27-33); Mean Corpuscular Volume 90.6 fl (85-98); Nucleated Red Blood Cells % 0 %; Platelet Count 389 10^3/cmm (157-399); Red Blood Count 3.52 10^6/uL (3.85-5.65); White Blood Count 18.19 10^3/uL (3.29-11.43)
[2025-07-02 07:15] LABS: Alanine Aminotransferase 22 U/L (0-33); Albumin Level 2.4 g/dL (3.5-5.2); Alkaline Phosphatase 108 U/L (35-105); Blood Urea Nitrogen 9 mg/dL (8-23); Calcium 8.6 mg/dL (8.5-10.5); Carbon Dioxide 23 mmol/L (22-29); Chloride 102 mmol/L (98-107); Globulin 3.4 g/dL (1.3-4.6); Glucose 115 mg/dL (65-115); Magnesium 1.7 mg/dL (1.7-2.3); Osmolality Calculated 278 mOsm/kg (285-295); Sodium 134 mmol/L (136-145); Total Protein 5.8 g/dL (6.6-8.7)
[2025-07-02 07:17] LABS: Anion Gap 13.4 (5-19); Potassium 4.4 mmol/L (3.5-5.1)
[2025-07-02 07:18] LABS: Aspartate Amino Transferase 24 U/L (0-32)
--- NOTE | 2025-07-02 09:46 | PC.SOCIAL ---
IMM Update pg 2 of IMM Updated and reviewed w/ patient. Copy provided and copy dated, initialed and placed in chart.
--- NOTE | 2025-07-02 13:48 | PM.DCS ---
Discharge Providers Date of Admission: 06/25/25 11:44 Date of Discharge: July 02, 2025 Attending Provider at Admission: Yessica Arndt MD Attending Provider at Discharge: Reuben Matthews MD Consults: Podiatry: Dr. Fonseca ID: Dr. Montiel Primary Care Provider: Kadi Durant DO Diagnoses at Discharge Discharge Diagnosis 1. Osteomyelitis: 2. Cellulitis of right foot: 3. CAD (coronary artery disease): 4. PVD (peripheral vascular disease): 5. Controlled type 2 diabetes mellitus with diabetic peripheral angiopathy without gangrene, with long-term current use of insulin: 6. Constipation: 7. Atelectasis: Reason for Visit Reason for Visit: right foot injury. n/v feels bad Brief History: Per HPI Malcolm Key is a 85 year old female with medical history significant for hyperlipidemia, hypertension, diabetes type 2, peripheral vascular disease, status post revascularization of the vessels of the lower extremities, coronary artery disease, and history of ongoing diabetic wound infection over the past 2 years, presenting to the emergency room with complaints of nausea and vomiting that started last night. Patient is been taking care of by Dr. Fonseca outpatient for this foot and has seen Dr. Fonseca recently. Patient presented for further evaluation of this foot. Imaging showed patient had osteomyelitis right foot The right great toe ventral portion had been in a way into the bone by infection and patient has also cellulitis of that whole entire right foot. Official report of CT of the abdomen and pelvics and of the right lower extremity is not out yet. Hospital Course Hospital Course Patient was admitted for further evaluation and management of cellulitis of the right foot with concerns for gangrene. Podiatry was consulted. She underwent right great toe amputation along with incision down to bone cortex of right first metatarsal on 06/25. She was started on broad-spectrum IV antibiotics. Further treatment possibilities with possible BKA were discussed in detail with the patient. Patient wished to avoid BKA at all possibility. After being on IV antibiotics she underwent right transmetatarsal amputation and Achilles lengthening on 06/30. ID was consulted for further recommendations for antibiotics. Given concerns for significant gangrene and cellulitis on admission she will be discharged on oral antibiotics with linezolid and ciprofloxacin for 10 more days. Patient is at high risk of treatment failure and requires nonweightbearing status as per podiatry team for 6 weeks hence safe discharge planning to SNF was sought. She [facility] in hemodynamically stable condition on oral antibiotics after removal of Borges catheter for further rehabitation, oral antibiotics. She is to follow-up with podiatry as an outpatient. During hospitalization her blood pressures were stable and antihypertensive have been adjusted. Physical Exam Narrative: General Well-developed well-nourished obese female in no acute cardiopulmonary stress. Eye contact is somewhat angry or evasive CV irregular rhythm Lungs clear to auscultation Abdomen positive bowel tones soft nontender Right foot in gauze dressing which I did not remove. It is not soaked through or soiled Borges in place Urinary Catheter Management: Borges: Cath Placed During This Visit: yes Reason for Continuing Indwelling Catheter: Acute Urinary Retention or Obstruction Urinary Catheter Date of Insertion: 06/25/25 Urinary Catheter Time of Insertion: 08:49 Discharge Data Studies Completed and Pending Completed Studies During Hospitalization Category Date Time Status CT angio abd aorta runof 19353 Stat Cat Scan 06/25/25 05:15 Completed CXRP [XR chest 1V portable 20100] Routine Exams 06/26/25 13:29 Completed CXRP [XR chest 1V portable [id number]] Routine Exams 06/27/25 13:46 Completed XR chest 1V portable [id number] Stat Exams 06/27/25 08:14 Completed XR chest 1V portable [id number] Stat Exams 06/29/25 04:23 Completed XR foot RT 2V [id number] Stat Exams 06/25/25 05:49 Completed XR foot RT min 3V* [id number] Routine Exams 06/26/25 06:34 Completed Pathology: Surgical [PTH] Routine Pth 06/25/25 13:01 Completed Pending at discharge Category Date Time Status Anaerobic Culture Routine Lab 06/25/25 12:30 Results MAG [Magnesium] AM LABS Lab 07/03/25 04:00 Ordered Wound Culture and Gram Stain Routine Lab 06/25/25 12:30 Results Pathology: Surgical [PTH] Routine Pth 06/25/25 13:01 Received Radiology Impressions Aorta w/Runoff CTA 06/25/25 05:15 IMPRESSION: 1. Severe peripheral arterial disease in each lower extremity including occlusive tibial artery disease as described above. The severe lower extremity peripheral arterial disease is similar in appearance to the prior exam. 2. Swelling, phlegmon and gas in the soft tissues of the right great toe suggesting significant infection. No CT evidence of right great toe osteomyelitis at this time however the CT appearance of osteomyelitis is typically a late finding. 3. Bilateral lower extremity edema concerning for cellulitis. 4. Stable severe stenoses of the origin of the [place]. 5. Cholelithiasis but no suggestion of cholecystitis. 6. Small gas droplets within the urinary bladder. Consider UA to evaluate for cystitis. 7. Gas within the endometrial canal. Endometritis not excluded. Foot X-Ray 06/26/25 06:34 IMPRESSION: 1. Recent amputation of parts of the first ray as detailed above. Prior amputation of parts of the second ray. Chest X-Ray 06/29/25 04:23 IMPRESSION: No significant change. Microbiology 06/25/25 12:30 Toe - #1 Gram Stain - Final 06/25/25 12:30 Toe - #1 Anaerobic Culture - Preliminary 06/25/25 12:30 Toe - #1 Wound Culture - Final 06/25/25 09:45 Blood Blood Culture - Final NO GROWTH AFTER 5 DAYS 06/25/25 05:59 Blood Blood Culture - Final NO GROWTH AFTER 5 DAYS Laboratory Results WBC 18.19 10^3/uL (3.29-11.43) H 07/02/25 05:10 RBC 3.52 10^6/uL (3.85-5.65) L 07/02/25 05:10 Hgb 10.60 g/dL (11.27-16.99) L 07/02/25 05:10 Hct 31.9 % (36-47) L 07/02/25 05:10 MCV 90.6 fl (85-98) 07/02/25 05:10 MCH 30.1 pg (27-33) 07/02/25 05:10 MCHC 33.2 g/dL (30-55) 07/02/25 05:10 RDW 14.5 % (12.1-15.1) 07/02/25 05:10 Plt Count 389 10^3/cmm (157-399) 07/02/25 05:10 MPV 10.3 fL (7.4-10.4) 07/02/25 05:10 Neut % (Auto) 75.0 % 07/02/25 05:10 Lymph % (Auto) 12.3 % 07/02/25 05:10 [place] % (Auto) 9.6 % 07/02/25 05:10 Eos % (Auto) 1.7 % 07/02/25 05:10 Baso % (Auto) 0.5 % 07/02/25 05:10 Neut # (Auto) 13.64 10^3/uL (1.8-7.7) H 07/02/25 05:10 Lymph # (Auto) 2.2 10^3/uL (0.8-4.8) 07/02/25 05:10 [place] # (Auto) 1.8 10^3/uL (0.2-0.9) H 07/02/25 05:10 Eos # (Auto) 0.3 10^3/uL (0.0-0.8) 07/02/25 05:10 Baso # (Auto) 0.1 10^3/uL (0.0-0.1) 07/02/25 05:10 Nucleated RBC % (auto) 0 % 07/02/25 05:10 Nucleated RBCs # 0.0 /100WBC 07/02/25 05:10 ESR 78 mm/hr (0-15) H 06/25/25 05:59 Sodium 134 mmol/L (136-145) L 07/02/25 06:30 Potassium 4.4 mmol/L (3.5-5.1) 07/02/25 06:30 Chloride 102 mmol/L (98-107) 07/02/25 06:30 Carbon Dioxide 23 mmol/L (22-29) 07/02/25 06:30 Anion Gap 13.4 (5-19) 07/02/25 06:30 BUN 9 mg/dL (8-23) 07/02/25 06:30 Creatinine 0.5 mg/dL (0.5-0.9) 07/02/25 06:30 GFR Calculation Not Reportable 07/02/25 06:30 Glucose 115 mg/dL (65-115) 07/02/25 06:30 POC Glucose 279 mg/dL (70-110) H 07/02/25 12:02 Estimat Average Glucose 232 06/26/25 00:53 Hemoglobin A1c 9.7 % (4.0-6.0) H 06/26/25 00:53 Calculated Osmolality 278 mOsm/kg (285-295) L 07/02/25 06:30 Lactic Acid 2.2 mmol/L (0.5-2.2) 06/25/25 09:45 Lactic Acid (Sepsis) 2.4 mmol/L (0.5-2.2) H 06/25/25 13:30 Calcium 8.6 mg/dL (8.5-10.5) 07/02/25 06:30 Phosphorus 2.7 mg/dL (2.5-4.5) 06/26/25 00:53 Magnesium 1.7 mg/dL (1.7-2.3) 07/02/25 06:30 Iron 91 ug/dL (37-145) 06/30/25 11:30 TIBC 287 mcg/dl 06/30/25 11:30 % Saturation 31.7 % (20-50) 06/30/25 11:30 Unsat Iron Binding 196 ug/dL (112-347) 06/30/25 11:30 Total Bilirubin 0.7 mg/dL (0.15-1.2) 07/02/25 06:30 AST 24 U/L (0-32) 07/02/25 06:30 ALT 22 U/L (0-33) 07/02/25 06:30 Alkaline Phosphatase 108 U/L (35-105) H 07/02/25 06:30 C-Reactive Protein 73.4 mg/L (0.0-4.9) H 06/28/25 08:29 NT-Pro-B Natriuret Pep 3489 pg/mL (0-450) H 06/25/25 09:45 Total Protein 5.8 g/dL (6.6-8.7) L 07/02/25 06:30 Albumin 2.4 g/dL (3.5-5.2) L 07/02/25 06:30 Globulin 3.4 g/dL (1.3-4.6) 07/02/25 06:30 Lipase 8 U/L (13-60) L 06/25/25 09:45 Vitamin B12 > 2000 pg/mL (232-1245) H 06/30/25 11:30 Folate 9.6 ng/mL (4.8-37.3) 07/01/25 05:29 Procalcitonin 0.09 ng/mL (0-0.5) 06/30/25 11:30 TSH 3.76 uIU/mL (0.27-4.20) 06/28/25 08:29 Nasal MRSA (PCR) Not detected (Not Detecte) 06/28/25 16:30 Vancomycin Trough 11.4 ug/mL (10-15) 06/29/25 02:53 Vitals Last Vital Signs Temp 97.5 F L 07/02/25 12:06 Pulse 87 07/02/25 12:06 Resp 18 07/02/25 12:06 BP 154/95 07/02/25 12:06 Pulse Ox 97 07/02/25 12:06 O2 Del Method Nasal Cannula 07/02/25 12:06 O2 Flow Rate 2 07/02/25 03:30 Discharge Plan Discharge Patient Disposition: Xfer SNF Condition: Stable Prescriptions: New linezolid 600 mg tablet 600 mg PO BID 10 Days Qty: 20 0RF ciprofloxacin HCl [Cipro] 500 mg tablet 500 mg PO BID Qty: 20 0RF Continued melatonin 10 mg capsule 10 mg PO BEDTIME tramadol 50 mg tablet 50 mg PO TID PRN (Reason: pain) Qty: 90 2RF famotidine 20 mg tablet 20 mg PO DAILY (DME) Diabetic shoes with 3 sets of insoles See Rx Instructions .Route .MEDSUPPLY Qty: 1 0RF Rx Instructions: As directed by [facility] amlodipine 5 mg tablet 5 mg PO BID Qty: 90 3RF clopidogrel [Plavix] 75 mg tablet 75 mg PO DAILY Qty: 90 3RF ezetimibe 10 mg tablet 10 mg PO DAILY Qty: 90 3RF furosemide 40 mg tablet 40 mg PO DAILY Qty: 90 3RF losartan 50 mg tablet 50 mg PO BID Qty: 180 3RF metoprolol tartrate 100 mg tablet 100 mg PO BID Qty: 180 3RF nitroglycerin 0.4 mg tablet, sublingual 0.4 mg SUBLINGUAL Q5M PRN (Reason: chest pain) Qty: 30 3RF Rx Instructions: do not exceed 3 doses per episode spironolactone 50 mg tablet 50 mg PO DAILY Qty: 90 3RF atorvastatin [Lipitor] 80 mg tablet 80 mg PO DAILY Qty: 90 1RF glipizide 10 mg tablet extended release 24hr 10 mg PO BID Qty: 180 1RF insulin glargine [Lantus Solostar U-100 Insulin] 100 unit/mL (3 mL) insulin pen 40 unit SUBCUT BID 90 Days Qty: 72 1RF rivaroxaban [Xarelto] 2.5 mg tablet 2.5 mg PO BID Qty: 180 0RF Discontinued hydralazine 100 mg tablet 100 mg PO TID Qty: 270 3RF [employer] OK for DC: Infectious Disease Referrals: [facility] [Outside] Von Fonseca DPM [Physician, Podiatry] - 07/07/25 11:15 am Kadi Durant DO [Primary Care Provider, Family Practice] Discharge Diet: Cardiac and Diabetic Discharge Activity: Resume usual activity and Increase activity as tolerated Patient Instructions: Ciprofloxacin (By mouth), Linezolid (By mouth), Opioid Safety, Patient Portal & Norma Instructions Activity Restrictions/Additional Instructions: Goal blood pressure less than 140/90 [place]. Monitor blood pressure daily. Follow-up with podiatry as an outpatient. Take linezolid and ciprofloxacin which are the antibiotic for next 10 days. PICC line and Borges catheter removed prior to discharge. Discharge after prior authorization is achieved and clearance from podiatry team. Discharge Attestations Time Spent in Discharge Care*: greater than 30 min Specific Discharge Activities: educating patient, educating and/or supporting family/caregiver, discussing with pcp/other providers, discussing with renal case manager/social workers/dc planners, documenting/other paperwork and evaluating patient/reviewing data Status at Discharge: Cognitive status at discharge: cognitively intact, Behavioral status at discharge: cooperative, Functional status at discharge: bed bound, Overall status at discharge: patient is not back to baseline Quality Metrics Clinical Quality Measures [ No reported AMI, CVA or VTE this stay] Coding Level of Care Code 38453 Total time (in minutes) for Discharge: 65 Diagnoses Osteomyelitis M86.9 Cellulitis of right foot L03.115 CAD (coronary artery disease) I25.10 PVD (peripheral vascular disease) I73.9 Controlled type 2 diabetes mellitus with diabetic peripheral angiopathy without gangrene, with long-term current use of insulin E11.9; Z79.4 Constipation K59.00 Atelectasis J98.11
--- NOTE | 2025-07-02 13:49 | P.PN_ITS ---
Subjective 2 Subjective: Patient seen bedside this afternoon, states that she is feeling well, accompanied by her daughter and son-in-law. Vitals/I&O/Wt Last Vital Signs Temp 97.5 F L 07/02/25 12:06 Pulse 87 07/02/25 12:06 Resp 18 07/02/25 12:06 BP 154/95 07/02/25 12:06 Pulse Ox 97 07/02/25 12:06 O2 Del Method Nasal Cannula 07/02/25 12:06 O2 Flow Rate 2 07/02/25 03:30 07/01/25 07/02/25 07/02/25 22:59 06:59 14:59 Intake Total 540 / 830 450 / 1280 1320 / 1320 Output Total 1250 / 1950 300 / 2250 2230 / 2230 Balance -710 / -1120 150 / -970 -910 / -910 Weight last 48 hrs Weight 196 lb Weight 190 lb 6 oz Physical Exam 2 Narrative: GENERAL: Patient is alert and oriented ?3 and in no acute distress. The following is a focused bilateral lower extremity exam. VASCULAR: Dorsalis pedis diminished bilaterally. Posterior tibial arteries diminished. Capillary refill time less than 5 seconds to the distal hallux bilaterally. Calf is supple and nontender proximally and distally. No pedal edema, decreased pedal hair growth noted. NEUROLOGICAL: Protective sensation intact 0/10 sites, tested with [place] monofilament to bilateral feet. DERMATOLOGICAL: Surgical dressing is clean, dry and intact, LASHON drain approximately 40 mL of serosanguineous drainage. MUSCULOSKELETAL: Status post right transmetatarsal amputation. Urinary Catheter Management: Borges: Cath Placed During This Visit: yes Reason for Continuing Indwelling Catheter: Acute Urinary Retention or Obstruction Urinary Catheter Date of Insertion: 06/25/25 Urinary Catheter Time of Insertion: 08:49 Data 07/02/25 05:10 07/02/25 06:30 Micro: Microbiology 06/25/25 12:30 Gram Stain - Final Toe - #1 Anaerobic Culture - Preliminary Wound Culture - Final A&P Assessment and plan 1. Peripheral arterial disease: 2. Cellulitis of right foot: 3. Non-pressure chronic ulcer of other part of right foot with necrosis of bone: Ms. Key, an 85-year-old with advanced comorbidities of Diabetes Mellitus and Peripheral Arterial Disease (PAD), underwent a Transmetatarsal Amputation (TMA) of the right foot on [Date of Surgery, assumed June 30, 2025] due to progressive gangrene. Successful healing is highly guarded due to her systemic risk factors. Functional Justification: Strict Keb-Zjkkoq-Jfrtbuz Status The patient?s current status dictates that she is a high risk for wound failure if discharged to a lower level of care. * Mandatory Restriction: Post-TMA, the patient is under a strict, absolute Ewt-Uqmlrt-Dlarphu (NWB) mandate on the right lower extremity to allow for crucial soft tissue and bony healing across the amputation site. * Anticipated Duration: This NWB status is anticipated to last a minimum of six (6) weeks post-operatively, projected until approximately August 11, 2025. * Risk of Non-Compliance (Limb & Life Threatening): Any premature or accidental weight-bearing will directly cause breakdown of the surgical flap and dehiscence, leading to: * Surgical Failure: Requiring immediate reoperation. * Infection and Sepsis: Introduction of bacteria into the deep tissue, risking a systemic, life-threatening infection. * Higher Amputation: Loss of the limb salvage attempt, mandating a higher- level amputation such as a Below-Knee Amputation (BKA). * SNF Necessity: Due to her age, comorbidities, and the functional demands of maintaining NWB status (especially for transfers, toileting, and self-care), the patient requires 24-hour correction supervision and physical assistance that cannot be safely replicated in a home setting. Medical Justification: Complex Skilled Management Continued SNF placement is medically necessary for stabilization and healing, requiring multiple skilled services: * Wound Care and Monitoring: The TMA site requires complex, skilled daily dressing changes and aggressive monitoring by licensed nursing staff to detect the earliest signs of flap necrosis, infection, or dehiscence?a critical necessity given the patient's history of gangrene and PAD. * Diabetic and Glycemic Control: Tightly managing the patient?s blood glucose levels is paramount for wound healing. Uncontrolled diabetes is the leading cause of surgical failure in this population. The SNF is required for daily blood glucose monitoring, insulin adjustments, and prompt response to hyperglycemic or hypoglycemic crises by correction staff. * Nutritional Therapy: Successful healing of a large amputation site requires a systemic response. The patient requires daily monitoring by a registered nurse and/or consultation with a dietitian to ensure compliance with a Diabetic Diet and, crucially, a regimen of increased protein intake to fuel tissue regeneration and immunologic function. Conclusion and Authorization Request The transition to a lower level of care at this stage would constitute an unacceptable threat to the patient's life and limb, as it would severely compromise the outcome of her recent amputation and the integrity of her care plan. 4. Gangrene of right foot: Plan: Patient wishes to avoid below-knee amputation if at all possible. Status post right transmetatarsal amputation and right Achilles lengthening, guarded as to healing potential with underlying PAD, diabetes and low albumin indicating poor nutritional status. - Strict nonweightbearing to the right lower extremity - Continue empiric IV antibiotics - Recommend dietitian consultation - Patient agreeable for transfer to correction after this hospitalization, prefers snf in [place] if possible. - Can work with PT OT No further surgical intervention anticipated during this hospitalization from podiatry standpoint. PDMP PDMP Reviewed: Not Reviewed Attestations 2 Medical Necessity Statement*: Per primary Coding Level of Care Code Acute Code for [facility] Diagnoses Peripheral arterial disease I73.9 Cellulitis of right foot L03.115 Non-pressure chronic ulcer of other part of right foot with necrosis of bone L97.514 Gangrene of right foot I96
--- NOTE | 2025-07-02 18:51 | PC.NURSE ---
Removed PT aviles catheter intact. Pt has no issues noted at this time. PT does have deep tissue injury and is non weight bearing on right leg at this time.
[2025-07-03] VITALS: BP 138/72; PULSE 79; RESP 17; TEMP 36.3; O2SAT 94
[2025-07-03] MEDS: HYDROcodone-acetaminophen 5-325 mg Tablet 1 TAB PO ×2 (00:59→14:37)
[2025-07-03 04:00] VITALS: BP 128/68; PULSE 82; RESP 16; TEMP 37.1; O2SAT 93
[2025-07-03] MEDS: lactobacillus 1 Tablet 1 TAB PO ×2 (05:52→17:25)
[2025-07-03] MEDS: piperacillin-tazobactam 4.5 GM in sodium chloride 0.9% (plus) 50 ML IV ×2 (05:52→14:37)
[2025-07-03 06:18] LABS: Magnesium 1.8 mg/dL (1.7-2.3)
--- NOTE | 2025-07-03 06:33 | PM.PN ---
Subjective Subjective: Patient seen bedside this p.m., reports improvement in her right foot pain, anticipating transfer to senior care, frustrated that insurance will only pay for 20 days, making preparations for after that going home. Her daughter is present. Vitals/I&O/Wt Last Vital Signs Temp 98.8 F 07/03/25 04:00 Pulse 82 07/03/25 04:00 Resp 16 07/03/25 04:00 BP 128/68 07/03/25 04:00 Pulse Ox 93 07/03/25 04:00 O2 Del Method Room Air 07/03/25 04:00 O2 Flow Rate 2 07/02/25 03:30 07/02/25 07/02/25 07/03/25 14:59 22:59 06:59 Intake Total 1370 / 1370 410 / 1780 300 / 2080 Output Total 2230 / 2230 900 / 3130 Balance -860 / -860 -490 / -1350 300 / -1050 Weight last 48 hrs Weight 193 lb Weight 196 lb Physical Exam Narrative: GENERAL: Patient is alert and oriented ?3 and in no acute distress. The following is a focused bilateral lower extremity exam. VASCULAR: Dorsalis pedis diminished bilaterally. Posterior tibial arteries diminished. Capillary refill time less than 5 seconds to the distal hallux bilaterally. Calf is supple and nontender proximally and distally. No pedal edema, decreased pedal hair growth noted. NEUROLOGICAL: Protective sensation intact 0/10 sites, tested with [place] monofilament to bilateral feet. DERMATOLOGICAL: Surgical dressing is clean, dry and intact, LASHON drain approximately 40 mL of serosanguineous drainage. MUSCULOSKELETAL: Status post right transmetatarsal amputation. Urinary Catheter Management: Borges: Cath Placed During This Visit: yes Reason for Continuing Indwelling Catheter: Acute Urinary Retention or Obstruction Urinary Catheter Date of Insertion: 06/25/25 Urinary Catheter Time of Insertion: 08:49 Data 07/03/25 09:26 07/02/25 06:30 Micro: Microbiology 06/25/25 12:30 Gram Stain - Final Toe - #1 Anaerobic Culture - Final Wound Culture - Final A&P Assessment and plan 1. Peripheral arterial disease: 2. Cellulitis of right foot: 3. Non-pressure chronic ulcer of other part of right foot with necrosis of bone: 4. Gangrene of right foot: Plan: Patient wishes to avoid below-knee amputation if at all possible. Status post right transmetatarsal amputation and right Achilles lengthening, guarded as to healing potential with underlying PAD, diabetes and low albumin indicating poor nutritional status. - Strict nonweightbearing to the right lower extremity - Continue empiric IV antibiotics - Recommend dietitian consultation - Patient agreeable for transfer to senior care after this hospitalization, prefers residential in [place] if possible. - Can work with PT OT Follow-up in podiatry clinic outpatient 07/07/2025 11:15 AM No further surgical intervention anticipated during this hospitalization from podiatry standpoint. PDMP PDMP Reviewed: Not Reviewed Attestations Medical Necessity Statement*: Deferred to primary Coding Level of Care Code Acute Code for [facility] Fwd Diagnoses Peripheral arterial disease I73.9 Cellulitis of right foot L03.115 Non-pressure chronic ulcer of other part of right foot with necrosis of bone L97.514 Gangrene of right foot I96
[2025-07-03 07:46] VITALS: BP 171/51; PULSE 83; RESP 24; TEMP 36.6; O2SAT 97
[2025-07-03 08:02] VITALS: PULSE 98
[2025-07-03 09:35] LABS: Hematocrit 34.4 % (36-47); Hemoglobin 11.10 g/dL (11.27-16.99); Mean Corpuscular HGB Conc 32.3 g/dL (30-55); Mean Corpuscular Hemoglobin 29.5 pg (27-33); Mean Corpuscular Volume 91.5 fl (85-98); Nucleated Red Blood Cells % 0 %; Platelet Count 399 10^3/cmm (157-399); Red Blood Count 3.76 10^6/uL (3.85-5.65); White Blood Count 16.96 10^3/uL (3.29-11.43)
[2025-07-03 11:07] VITALS: BP 146/84; PULSE 76; RESP 16; TEMP 36.6; O2SAT 93
--- NOTE | 2025-07-03 13:38 | P.PN_ITS ---
Subjective 2 Subjective: No acute events overnight. Blood sugars better controlled. Could not be discharged yesterday as did not get prior authorization. Today had to do a peer to peer. As per the medical office asst decision will be made after 1 PM regarding the same. Patient has well denies any nausea, vomiting, headache. Seen sitting up in chair. Got up with physical therapy. Seen with family ember at bedside. Has remained hemodynamically stable and afebrile. Vitals/I&O/Wt Last Vital Signs Temp 97.8 F 07/03/25 11:07 Pulse 76 07/03/25 11:07 Resp 16 07/03/25 11:07 BP 146/84 07/03/25 11:07 Pulse Ox 93 07/03/25 11:07 O2 Del Method Nasal Cannula 07/03/25 11:07 O2 Flow Rate 2 07/02/25 20:00 07/02/25 07/03/25 07/03/25 22:59 06:59 14:59 Intake Total 410 / 1780 300 / 2080 1090 / 1090 Output Total 900 / 3130 5 / 5 Balance -490 / -1350 300 / -1050 1085 / 1085 Weight last 48 hrs Weight 87.543 kg Weight 88.904 kg Physical Exam 2 Narrative: General Well-developed well-nourished obese female in no acute cardiopulmonary stress. Eye contact is somewhat angry or evasive CV irregular rhythm Lungs clear to auscultation Abdomen positive bowel tones soft nontender Right foot in gauze dressing which I did not remove. It is not soaked through or soiled Borges in place Urinary Catheter Management: Borges: Cath Placed During This Visit: yes Reason for Continuing Indwelling Catheter: Acute Urinary Retention or Obstruction Urinary Catheter Date of Insertion: 06/25/25 Urinary Catheter Time of Insertion: 08:49 Data 07/03/25 09:26 07/02/25 06:30 Micro: Microbiology 06/25/25 12:30 Gram Stain - Final Toe - #1 Anaerobic Culture - Final Wound Culture - Final A&P Assessment and plan 1. Osteomyelitis: Continue with vancomycin and Zosyn pending MRSA screen. MRSA screen is negative surgery and Gram stain pending tomorrow consider discontinue vancomycin 2. Cellulitis of right foot: As above 3. CAD (coronary artery disease): continue aspirin daily and home antihypertensive regimen 4. PVD (peripheral vascular disease): aspirin daily and home Plavix 5. Controlled type 2 diabetes mellitus with diabetic peripheral angiopathy without gangrene, with long-term current use of insulin: Increase Lantus to 50 units twice a day, sliding scale insulin and weight loss 1500-calorie ADA diet as we discussed. Patient is agreeable. Medium scale sliding scale insulin Blood sugars running from 87-203 which is a big improvement from earlier in the hospital 6. Constipation: Start docusate, MiraLAX and lactulose. Patient had 2 bowel movement 7. Atelectasis: Continue incentive spirometer patient to be up in a chair twice a day for 2-hour Plan: Plan for the day: Appreciate podiatry and ID recommendations. Continue wound care as per podiatry team. Continue IV antibiotics for now. Will plan to discharge on oral linezolid and ciprofloxacin as per ID recommendations. Plan to remove PICC line prior to discharge. Borges removed. Patient working with physical therapy. Blood pressure stable. Blood sugars better controlled today. No further hypoglycemia. Most likely will plan to discharge without long-acting insulin. Patient does take glipizide 10 mg twice daily at home as well. For now we will continue the same. Continue with home dose of Xarelto. Plan to discharge to SNF once prior authorization received from insurance. Had peer to peer done earlier in the morning today. Discharge plan: As per podiatry recommendation patient would need transfer to SNF for rehabitation as patient will be nonweightbearing status for at least 6 weeks while her foot heals postoperatively. 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
[2025-07-03 15:40] VITALS: BP 178/83; PULSE 85; RESP 18; TEMP 36.8; O2SAT 93
== END 2025-07-03 17:40 | disposition skilled nursing facility (03) | DRG 239 ==
LOC: ER 07:27 → OR 11:22 → MEDSURG 20:28
PROVIDERS: Internal Medicine; Podiatrist Foot & Ankle Surgery; Student in an Organized Health Care Education/Training Program; Admitting Provider Internal Medicine; Emergency Provider Student in an Organized Health Care Education/Training Program; PCP Family Medicine; Visit Provider Student in an Organized Health Care Education/Training Program
PROC: 0Y6P0Z0 Detachment at Right 1st Toe, Complete, Open Approach (ICD-10-PCS; principal; 2025-06-25 12:00)
PROC: 0Y6P0Z0 Detachment at Right 1st Toe, Complete, Open Approach (ICD-10-PCS; 2025-06-25 12:00)
PROC: 0Y6M0Z0 Detachment at Right Foot, Complete, Open Approach (ICD-10-PCS; principal; 2025-06-30 11:55)
DX: E11.52 Type 2 diabetes mellitus with diabetic peripheral angiopathy with gangrene (principal); A48.0 Gas gangrene; L03.115 Cellulitis of right lower limb; J98.11 Atelectasis; M86.671 Other chronic osteomyelitis, right ankle and foot; E11.621 Type 2 diabetes mellitus with foot ulcer; E11.69 Type 2 diabetes mellitus with other specified complication; I70.223 Atherosclerosis of native arteries of extremities with rest pain, bilateral legs; G47.33 Obstructive sleep apnea (adult) (pediatric); M81.0 Age-related osteoporosis without current pathological fracture; K21.9 Gastro-esophageal reflux disease without esophagitis; I10 Essential (primary) hypertension; L97.519 Non-pressure chronic ulcer of other part of right foot with unspecified severity; E78.2 Mixed hyperlipidemia; M19.90 Unspecified osteoarthritis, unspecified site; E11.65 Type 2 diabetes mellitus with hyperglycemia; I25.10 Atherosclerotic heart disease of native coronary artery without angina pectoris; E11.42 Type 2 diabetes mellitus with diabetic polyneuropathy; R11.2 Nausea with vomiting, unspecified; R33.9 Retention of urine, unspecified; E66.9 Obesity, unspecified; Z79.02 Long term (current) use of antithrombotics/antiplatelets; K59.00 Constipation, unspecified; Z79.01 Long term (current) use of anticoagulants; Z79.899 Other long term (current) drug therapy; Z88.6 Allergy status to analgesic agent; Z79.4 Long term (current) use of insulin; Z88.5 Allergy status to narcotic agent; Z88.0 Allergy status to penicillin; Z88.8 Allergy status to other drugs, medicaments and biological substances; Z96.642 Presence of left artificial hip joint; Z95.820 Peripheral vascular angioplasty status with implants and grafts; Z95.1 Presence of aortocoronary bypass graft; Z87.891 Personal history of nicotine dependence; Z68.33 Body mass index [BMI] 33.0-33.9, adult
CPT/HCPCS: 36415; 36416; 36573; 36592; 51702; 71045; 73620; 73630; 75635; 80048; 80053; 80202; 82565; 82607; 82746; 82962; 83036; 83540; 83550; 83605; 83690; 83735; 83880; 84100; 84145; 84443; 85025; 85651; 86140; 87040; 87070; 87075; 87205; 88305; 88307; 88311; 93005; 96365; 96366; 96367; 96372; 96375; 97162; 97167; 97530; 99285; J1171; J1644; J1815; J1885; J1938; J2270; J2405; J2470; J2543; J2704; J2997; J3010; J3372; J3373; J3480; J3490; J7030; J7050; J7799; J9999; Q0162

== ENCOUNTER → 2025-07-07 11:10 | Outpatient (BNVA) | payer MEDICARE, SELFPAY | PROVIDERS: PCP Family Medicine; Visit Provider Podiatrist Foot & Ankle Surgery | DX: E11.51 Type 2 diabetes mellitus with diabetic peripheral angiopathy without gangrene (principal); Z79.4 Long term (current) use of insulin; I73.9 Peripheral vascular disease, unspecified; Z89.431 Acquired absence of right foot | CPT/HCPCS: 99024 ==

== ENCOUNTER → 2025-07-14 11:12 | Outpatient (BNVA) | payer MEDICARE, SELFPAY | PROVIDERS: PCP Family Medicine; Visit Provider Podiatrist Foot & Ankle Surgery | DX: E11.51 Type 2 diabetes mellitus with diabetic peripheral angiopathy without gangrene (principal); Z79.4 Long term (current) use of insulin; I73.9 Peripheral vascular disease, unspecified; Z89.431 Acquired absence of right foot; Z91.81 History of falling | CPT/HCPCS: 99213 ==

== ENCOUNTER → 2025-07-28 12:25 | Outpatient (BNVA) | payer MEDICARE, SELFPAY | PROVIDERS: PCP Family Medicine; Visit Provider Podiatrist Foot & Ankle Surgery | DX: E11.51 Type 2 diabetes mellitus with diabetic peripheral angiopathy without gangrene (principal); Z79.4 Long term (current) use of insulin; I73.9 Peripheral vascular disease, unspecified; Z89.431 Acquired absence of right foot; Z91.81 History of falling | CPT/HCPCS: 99213 ==

== ENCOUNTER → 2025-08-04 12:31 | Outpatient (BNVA) | payer MEDICARE, SELFPAY | PROVIDERS: PCP Family Medicine; Visit Provider Podiatrist Foot & Ankle Surgery | DX: Z98.890 Other specified postprocedural states (principal); E11.51 Type 2 diabetes mellitus with diabetic peripheral angiopathy without gangrene; Z79.4 Long term (current) use of insulin; I73.9 Peripheral vascular disease, unspecified; Z89.431 Acquired absence of right foot; Z91.81 History of falling | CPT/HCPCS: 99213 ==

== ENCOUNTER → 2025-08-11 10:49 | Outpatient (BNVA) | payer MEDICARE, SELFPAY | PROVIDERS: PCP Family Medicine; Visit Provider Podiatrist Foot & Ankle Surgery | DX: Z98.890 Other specified postprocedural states (principal); E11.51 Type 2 diabetes mellitus with diabetic peripheral angiopathy without gangrene; Z79.4 Long term (current) use of insulin; I73.9 Peripheral vascular disease, unspecified; Z89.431 Acquired absence of right foot; Z91.81 History of falling | CPT/HCPCS: 99213 ==

== ENCOUNTER → 2025-08-18 12:27 | Outpatient (BNVA) | payer MEDICARE, SELFPAY | PROVIDERS: PCP Family Medicine; Visit Provider Podiatrist Foot & Ankle Surgery | DX: Z98.890 Other specified postprocedural states (principal); E11.51 Type 2 diabetes mellitus with diabetic peripheral angiopathy without gangrene; Z79.4 Long term (current) use of insulin; I73.9 Peripheral vascular disease, unspecified; Z89.431 Acquired absence of right foot; Z91.81 History of falling | CPT/HCPCS: 99213 ==